=== PATIENT | female | born 1940 | race Caucasian/White ===

== ENCOUNTER → 2019-12-10 09:17 | Outpatient (CLI) | payer MEDICARE, OTHER, SELFPAY ==
[2019-12-10 10:04] LABS: BUN Creatinine Ratio 23.5 (6-22); Blood Urea Nitrogen 16 mg/dL (7-17); Estimated Glomerular Filt Rate > 60.0 mL/min (>60)
--- NOTE | 2019-12-10 10:15 | DI.CT.S_ITS ---
PROCEDURE: CT SOFT TISSUE NECK W CON INDICATIONS: Malignant neoplasm of thyroid gland TECHNIQUE: After the administration of intravenous contrast, 3.0 mm axial sections acquired from the sella to the aortic arch. Additional oblique axial 3.0 mm sections acquired through the pharynx. 3 mm thick coronal and sagittal reformats were generated. For radiation dose reduction, the following was used: automated exposure control. COMPARISON: None. FINDINGS: Image quality: Excellent. Lymph nodes: No enlarged lymph nodes seen throughout the neck. Vessels: Visualized vasculature appears patent. Neck spaces: The oropharynx, nasopharynx, and pharynx demonstrate no mucosal lesions. The vocal cords, false vocal cords, pyriform sinuses, epiglottis, vallecula, and tongue base all appear normal. Extramucosal spaces appear unremarkable. Glands: The parotid and submandibular glands appear normal. Thyroid gland appears normal on the right but there is a large mass lesion replacing much of the left thyroid lobe which is mildly heterogeneous, measures up to 2.8 cm AP, 2.6 cm transverse and has a craniocaudad length of up to 4.1 cm. . Miscellaneous: Visualized brain and orbits appear normal. Lung apices appear clear. Superficial soft tissues appear normal. Note is made of a left-sided cardiac pacemaking device with dual-chamber leads traversing across the midline and inferiorly into the superior vena cava. Bones: No suspicious bony lesions. Visualized sinuses and mastoids appear unremarkable. IMPRESSION: Large left thyroid lobe mass without evidence of direct invasion into adjacent structures or development of adjacent adenopathy. In the small portion of the upper lung parenchyma included on this study no metastatic disease is suspected. Cardiac pacemaking device on the left, dual chamber leads cross the midline and enter the superior vena cava normally. Dictated by: Luis George M.D. on 12/10/2019 at 12:37 Approved by: Luis George M.D. on 12/10/2019 at 12:41
== END ==
PROVIDERS: PCP Family Medicine; Referring Provider Internal Medicine Endocrinology, Diabetes & Metabolism; Visit Provider Internal Medicine Endocrinology, Diabetes & Metabolism
DX: C73 Malignant neoplasm of thyroid gland (principal); E04.2 Nontoxic multinodular goiter; Z95.0 Presence of cardiac pacemaker
CPT/HCPCS: 36415; 70491; 82565; 84520; Q9967

== ENCOUNTER → 2022-08-23 11:22 | Outpatient (CLI) | payer MEDICARE, OTHER, SELFPAY ==
--- NOTE | 2022-08-23 | DI.CT.S_ITS ---
PROCEDURE: CT CHEST W CON INDICATIONS: Malignant neoplasm of thyroid gland TECHNIQUE: After the administration of intravenous contrast, 5 mm thick sections acquired from the pulmonary apices to the posterior costophrenic angles. 1 mm axial lung, 5 mm thick coronal and sagittal reformats and 7 mm axial MIP were acquired. For radiation dose reduction, the following was used: automated exposure control, adjustment of mA and/or kV according to patient size. COMPARISON: None. FINDINGS: Image quality: Excellent. Lungs and pleura: Basilar predominant tree-in-bud nodules, with branching centrilobular nodules in the lower lobes. Associated bronchial thickening and bronchiectasis. The largest pulmonary nodules as follows: -1 cm solid nodule, right lower lobe (3/259). -1.1 x 0.7 cm endobronchial nodule, left lower lobe (3/279). Mediastinum: Heart size is enlarged. No pericardial effusion. No mediastinal or hilar adenopathy by size criteria. However, there is a prominent left upper paratracheal node measuring 9 mm short axis (series 2, image 10). Thoracic aorta and central pulmonary arteries are normal in size. Esophagus is normal in caliber. No hiatal hernia. Intravenous leads terminate within the right atrium and right ventricle. Moderate coronary artery calcifications. Bones and chest wall: No suspicious bony lesions. No vertebral body compression fractures. No axillary or supraclavicular adenopathy by size criteria. Thyroid gland is absent . Abdomen: Cholelithiasis. Gallbladder not completely visualized. Fluid attenuating liver cysts. Additional subcentimeter hypoattenuating liver lesions, too small to characterize by CT. IMPRESSION: Prior thyroidectomy. No evidence of local recurrence in the surgical bed. Prominent left upper paratracheal node measuring 9 mm short axis, not technically enlarged by size criteria but not present on the prior exam. Guadalupe disease not excluded. Extensive lower lobe predominant tree-in-bud nodules and centrilobular nodules, with associated bronchiectasis and bronchial wall thickening. 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 Given the size of nodules and prior history of thyroid cancer, superimposed metastasis not entirely excluded. Consider 3 month follow-up to establish stability of nodules. Dictated by: Barrington Pham M.D. on 08/23/2022 at 12:04 Approved by: Barrington Pham M.D. on 08/23/2022 at 12:13
--- NOTE | 2022-08-23 | DI.CT.S_ITS ---
PROCEDURE: CT SOFT TISSUE NECK W CON INDICATIONS: Malignant neoplasm of thyroid gland TECHNIQUE: After the administration of intravenous contrast, 3.0 mm axial sections acquired from the sella to the aortic arch. Additional oblique axial 3.0 mm sections acquired through the pharynx. 3 mm thick coronal and sagittal reformats were generated. For radiation dose reduction, the following was used: automated exposure control. COMPARISON: [facility], CT, CT SOFT TISSUE NECK W CON, 12/10/2019, 10:03. [facility], CT, CT CHEST W CON, 08/23/2022, 11:29. [facility], US, US FINE NEEDLE ASPIRATION THYROID, 11/18/2019, 13:26. FINDINGS: Image quality: Excellent. Lymph nodes: No enlarged lymph nodes seen throughout the neck. Vessels: Visualized vasculature appears patent. Incidental note is made of a common origin of the right brachiocephalic artery and the left common carotid artery (bovine type arch). This is considered to be a developmental variant of no clinical consequence. Atherosclerotic calcification is noted. Neck spaces: The oropharynx, nasopharynx, and pharynx demonstrate no mucosal lesions. The vocal cords, false vocal cords, pyriform sinuses, epiglottis, vallecula, and tongue base all appear normal. Extramucosal spaces appear unremarkable. Glands: The parotid and submandibular glands appear normal. Thyroid gland has been removed. Several nodules of enhancing material can be seen within the left thyroid bed, as on series 2, image 9, measuring 10 x 9 mm in greatest axial dimension, with a craniocaudal extent of 2.4 cm. Miscellaneous: Visualized brain and orbits appear normal. Lung apices appear clear. Superficial soft tissues appear normal. A left-sided pacer device is seen. Bones: No suspicious bony lesions. Visualized sinuses and mastoids appear unremarkable. Moderate cervical spine degenerative changes can be seen. IMPRESSION: There is enhancing material seen within the left thyroid bed, which represents recurrent/residual thyroid tissue until proven otherwise. No suspicious lymph nodes are seen. Additional findings: Moderate cervical spine degenerative change Pacer device Bovine type aortic branching pattern. Dictated by: Leno Wallace M.D. on 08/23/2022 at 12:23 Approved by: Leno Wallace M.D. on 08/23/2022 at 12:27
== END ==
PROVIDERS: PCP Internal Medicine; Referring Provider Internal Medicine; Visit Provider Internal Medicine
DX: C73 Malignant neoplasm of thyroid gland (principal); R91.8 Other nonspecific abnormal finding of lung field; J44.9 Chronic obstructive pulmonary disease, unspecified; I27.20 Pulmonary hypertension, unspecified; I51.7 Cardiomegaly; K80.20 Calculus of gallbladder without cholecystitis without obstruction; E89.0 Postprocedural hypothyroidism; Z86.79 Personal history of other diseases of the circulatory system
CPT/HCPCS: 70491; 71260; Q9967

== ENCOUNTER → 2022-08-26 13:35 | Outpatient (CLI) | payer MEDICARE, OTHER, SELFPAY ==
--- NOTE | 2022-08-26 | DI.ECHO.S_ITS ---
[facility]---------+ [facility] +---------+ : : [address] [place] : : : : [id number] : : : : Phone: [phone] Echocardiogram Report + + :Name: MARGARITA GHOSH Study Date: 08/26/2022 Height: 67 in : :[facility] ReadingLocation: Weight: 158 lb : : Gender: Female BSA: 1.8 m2 : :: 1940 Age: 82 yrs BP: 138/80 mmHg: :Reason For Study: HYPERTENSION HR: 75 : :Ordering Physician: CALIXTO, : :ALBAN Boogie Performed By: GIRMA MORENO : :Referring: ALBAN DE LUNA : + + Interpretation Summary Normal left ventricle size with ejection fraction 60-65%. There is a pacemaker lead in the right ventricle. Mild aortic valve sclerosis. Moderate aortic regurgitation. Mild mitral annular calcification. Mild mitral regurgitation. Procedure: A two-dimensional transthoracic echocardiogram with color flow and Doppler was performed. The study quality was technically adequate. There is no prior echocardiogram noted for this patient. The patient was in normal sinus rhythm during the exam. Left Ventricle: The left ventricle is normal in size. There is normal left ventricular wall thickness. The ejection fraction is estimated to be 60-65%. There are no focal wall motion abnormalities. Right Ventricle: The right ventricle is normal in size and function. There is a pacemaker lead in the right ventricle. Atria: The left atrial size is normal. The right atrium is mild to moderately dilated. There is no Doppler evidence for an interatrial shunt. Mitral Valve: There is mild mitral annular calcification. The mitral valve leaflets appear mildly thickened, but open well. There is mild mitral regurgitation. Aortic Valve: The aortic valve is trileaflet. The aortic valve opens well. There is mild aortic valve sclerosis. There is no aortic valve stenosis. There is moderate aortic regurgitation. Tricuspid Valve: The tricuspid valve is normal in structure and function. There is mild tricuspid regurgitation. The right ventricular systolic pressure is estimated to be at least 35 mmHg based on an estimated right atrial pressure of 3 mm Hg. Pulmonic Valve: The pulmonic valve is normal in structure and function. There is no pulmonic valvular regurgitation. Great Vessels: The aortic root is normal size. The ascending aorta could not be visualized. The IVC is of normal diameter and collapses greater than 50% with a sniff. This suggests a low right atrial pressure of 3 mm Hg. Pericardium/ Pleura There is no pericardial effusion. There is no pleural effusion. MMode/2D Measurements & Calculations LVIDd: 4.5 cm LVOT diam: 1.9 cm LVIDs: 3.0 cm FS: 33.5 % IVSd: 0.74 cm LVPWd: 0.85 cm LV cardoso. diameter/BSA (cm/m^2): 2.5 LV sys. diameter/BSA (cm/m^2): 1.6 LA A2 area: 24.1 cm2 RA long axis: 4.6 cm LA A4 area: 11.7 cm2 RA area: 18.9 cm2 LA length (vol): 4.6 cm RA vol: 66.7 ml LA vol: 52.0 ml RA : 36.5 ml/m2 LA vol index: 28.4 ml/m2 IVC diam: 1.4 cm TAPSE: 2.4 cm Doppler Measurements & Calculations Ao V2 max: 148.0 cm/sec LVOT Max Ted: 109.7 cm/sec Ao V2 mean: 110.6 cm/sec LV V1 max P.8 mmHg Ao max P.8 mmHg LV V1 VTI: 23.5 cm Ao mean P.4 mmHg MATTHEW(I,D): 2.0 cm2 Ao V2 VTI: 31.6 cm MATTHEW(V,D): 2.0 cm2 sev ratio: 0.74 MATTHEW indexed to BSA (cm^2/m^2): 1.1 AI P1/2t: 369.7 msec AI dec slope: 395.9 cm/sec2 MV E max ted: 52.2 cm/sec TR max ted: 282.9 cm/sec MV A max ted: 59.0 cm/sec TR max P.0 mmHg MV E/A: 0.89 PA V2 max: 94.3 cm/sec Med Peak E' Ted: 5.8 cm/sec PA V2 mean: 77.0 cm/sec E/E' med: 9.0 PA mean P.4 mmHg Lat Peak E' Ted: 8.1 cm/sec PA pr(Accel): 46.5 mmHg E/E' lat: 6.5 E/e' average: 7.7 MV dec time: 0.26 sec SV(OT): 63.2 ml Electronically signed by: Milagro Rene on Reading Physician:08/26/2022 03:04 PM
== END ==
PROVIDERS: PCP Internal Medicine; Referring Provider Family Medicine; Visit Provider Family Medicine
DX: I08.3 Combined rheumatic disorders of mitral, aortic and tricuspid valves (principal); I27.20 Pulmonary hypertension, unspecified; I10 Essential (primary) hypertension; Z86.79 Personal history of other diseases of the circulatory system
CPT/HCPCS: 93306

== ENCOUNTER 2024-07-13 13:28 | Inpatient (IN) | payer MEDICARE, OTHER, SELFPAY ==
[2024-07-13] VITALS (23 sets, daily range): BP systolic 136–202; BP diastolic 76–96; PULSE 77–97; RESP 16–39; TEMP 36.4–36.8; O2SAT 81–96; BMI 23.5
--- NOTE | 2024-07-13 13:41 | EKG_ITS ---
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
--- NOTE | 2024-07-13 13:41 | DI.RAD.S_ITS ---
PROCEDURE: XR CHEST 1V INDICATIONS: Shortness of breath TECHNIQUE: One view of the chest was acquired. COMPARISON: None. FINDINGS AND IMPRESSION: On this single view study, no dense airspace disease or pleural effusion. Heart size is at the upper limit of normal. Left chest wall pulse generator with dual-chamber electrode leads in place. Degenerative osseous changes. Dictated by: Cosme Bobo M.D. on 07/13/2024 at 14:16 Approved by: Cosme Bobo M.D. on 07/13/2024 at 14:16
--- NOTE | 2024-07-13 13:47 | PC.NURSE ---
RT called during triage. LS have bilateral rhonchi throughout all bonner posteriorly.
[2024-07-13] MEDS: ALBUTEROL/IPRATROPIUM 3 ML AMPUL INH (14:20)
[2024-07-13 14:32] LABS: Add Manual Diff / Slide Review NO; Basophils Absolute Auto 100 /uL (0-100); Basophils Percent Auto 0.9 % (0-2); Eosinophils Absolute Auto 100 /uL (0-450); Eosinophils Percent Auto 0.9 % (2-4); Hematocrit 40.9 % (36-46); Hemoglobin 13.7 g/dL (12.0-16.0); Lymphocytes Absolute Auto 300 /uL (1100-4500); Lymphocytes Percent Auto 4.1 % (25-40); Mean Corpuscular HGB Conc 33.5 % (30-36); Mean Corpuscular Volume 92.6 fL (80-100); Monocytes Absolute Auto 800 /uL (0-900); Monocytes Percent Auto 12.6 % (3-14); Neutrophils Absolute Auto 5100 /uL (1500-7000); Neutrophils Percent Auto 81.5 % (50-75); Platelet Count 254 X10^3/uL (150-400); Red Blood Cell Count 4.42 X10^6/uL (4.0-5.2); Red Cell Distribution Width 13.9 % (11.6-14.8); White Blood Cell Count 6.3 X10^3/uL (4.5-11.0)
[2024-07-13 14:39] LABS: Alanine Aminotransferase 19 IU/L (<35); Albumin 4.2 g/dL (3.5-5.0); Albumin Globulin Ratio 1.5 (1.0-2.8); Alkaline Phosphatase 75 U/L (38-126); Aspartate Aminotransferase 30 IU/L (14-36); BUN Creatinine Ratio 23.2 (6-22); Bilirubin Total 0.6 mg/dL (0.2-1.3); Blood Urea Nitrogen 13 mg/dL (7-17); Calcium 8.7 mg/dL (8.4-10.2); Carbon Dioxide 29 mmol/L (22-32); Chloride 96 mmol/L (98-107); Estimated Glomerular Filt Rate > 60 mL/min (>60); Globulin 2.8 g/dL (1.7-4.1); Glucose 111 mg/dL (80-110); HEMOLYSIS < 15 (0-50); Potassium 3.2 mmol/L (3.4-5.1); Sodium 133 mmol/L (137-145)
[2024-07-13 14:44] LABS: INR 1.1 (0.9-1.3); Prothrombin Time 12.8 SECONDS (9.4-12.5)
[2024-07-13 14:51] LABS: NT-proBNP (BNP-Adult 18+) 1810 pg/mL (<450); Troponin I < 0.012 ng/mL (0.01-0.034)
[2024-07-13] MEDS: methylPREDNISolone 125 MG/2 ML VIAL IV (17:46)
--- NOTE | 2024-07-13 17:52 | PC.NURSE ---
Pt ambulated to bathroom off oxygen. O2 at this time was 92%. Upon exiting bathroom pt was 85% walking back to room (approx 20-30 feet). Pt then was very SOB and oxygen read 76%. Pt placed on 4L and recovered to 95%. Pt then titrated to 2L and is resting comfortably.
--- NOTE | 2024-07-13 18:45 | ED_ITS ---
HPI - SOB/Dyspnea General Chief Complaint: Shortness of Breath/Dyspnea Stated Complaint: Having a hard time breathing Time Seen by Provider: 07/13/24 17:31 Source: patient Mode of arrival: Wheelchair History of Present Illness HPI Narrative: 84-year-old female past medical history of COPD not requiring supplemental oxygen, hypertension, hypothyroidism at baseline who presents via EMS from home for evaluation of shortness of breath, states that she has been having dyspnea with exertion productive cough and chest tightness since yesterday states this happened after pain to her sanded the [place] down. According to medics when she was initially evaluated her pulse ox was 91% on room air eventually dropped down to 88% and was placed on 2 L nasal cannula improved to 93. Patient was given Solu-Medrol DuoNeb immediately upon arrival with improvement in symptoms, at time of evaluation patient is still with dyspneic with conversation but slightly improved symptoms of shortness of breath, she denies any other symptoms such as headache chest pain fever chills nausea vomiting abdominal pain or any other GI/ symptoms. Related Data Allergies Allergy/AdvReac Type Severity Reaction Status Date / Time No Known Drug Allergies Allergy Verified 07/13/24 14:23 Review of Systems Review of Systems Narrative: General: Denies fever, chills, weight loss HEENT: Denies headache, eye drainage, eye irritation, head trauma, sore throat, voice change Cardiovascular: Denies any chest pain, palpitations, shortness of breath, tachycardia Respiratory: Positive shortness of breath, cough, wheeze GI/: Denies any abdominal pain, nausea, vomiting, diarrhea, bright red blood per rectum, melanotic stools, urinary frequency, urinary retention, dysuria, hematuria MSK: Denies any joint pain, muscle pains, swelling Skin: Denies any rashes, lesions, discoloration Neuro: Denies any headache, lightheadedness, dizziness, fainting, weakness Psych: Denies SI/HI Patient History Social History Smoking Status: Never smoker Smoking Status: Never smoker Alcohol type: wine Exam Narrative Exam Narrative: General: Cooperative, comfortable, well-developed, not in acute distress HEENT: Normocephalic, atraumatic, PERRLA, normal sclera, eyelids normal, Neck: Active full range of motion, atraumatic Chest: Normal to inspection, negative crepitus, no overlying erythema ecchymosis Respiratory: Patient with moderate dyspnea with conversation, requiring 2 L nasal cannula, patient with wheezes in bilateral anterior and posterior lung bonner but protecting airway tolerating secretions Cardiology: Regular rate rhythm negative gallop, murmur, rubs GI/: Normal to inspection, soft, nonrigid, no tenderness to palpation, exam deferred MSK: Full range of active range of motion of all 4 extremities, atraumatic Skin: No rashes lesions noted Neuro: Alert awake oriented x3, moves all 4 extremities spontaneously, cranial nerves intact, able to answer all questions appropriately follows commands appropriately Psych: Cooperative, negative suicidal or homicidal ideations Initial Vital Signs Initial Vital Signs: Vital Signs Temperature 98.2 F 07/13/24 13:31 Pulse Rate 82 07/13/24 13:31 Respiratory Rate 22 07/13/24 13:31 Blood Pressure 139/77 07/13/24 13:31 Pulse Oximetry 88 L 07/13/24 13:31 Oxygen Delivery Method Room Air 07/13/24 13:31 Course Orders Ordered: ED Orders 07/13/24 13:41 XR chest 1V Stat EKG-12 Lead Stat Measure peak expiratory flow ONCE RT Consult Eval and Treat NOW 07/13/24 14:19 Complete Blood Count AUTO DIFF Stat Comprehensive Metabolic Panel Stat Lactate (Lactic Acid) Stat NT-proBNP (BNP-Adult 18+) Stat Prothrombin Time INR Stat Troponin I Stat 07/13/24 19:05 Covid-19 + FLU A/B + RSV - PCR Stat Discontinued Medications Albuterol (Albuterol 2.5 Mg/3 Ml Neb (Adult)) 2.5 mg INH NOW ONE Stop: 07/13/24 18:59 Last Admin: 07/13/24 19:33 Dose: 2.5 mg Documented By: BETHANIE Albuterol/Ipratropium (Albuterol/Ipratropium 3 Ml Ampul) 3 ml INH NOW ONE Stop: 07/13/24 14:17 Last Admin: 07/13/24 14:20 Dose: 3 ml Documented By: KELSIE Magnesium Sulfate (Magnesium Sulfate) 2 gm in 50 mls @ 150 mls/hr IV NOW ONE Stop: 07/13/24 19:08 Last Infusion: 07/13/24 19:32 Dose: Infused Documented By: BETHANIE Co-signed By: AMELIA Admin: 07/13/24 19:08 Dose: 150 mls/hr Documented By: AMELIA(2) Co-signed By: AB Methylprednisolone (Methylprednisolone 125 Mg/2 Ml Vial) 125 mg IV NOW ONE Stop: 07/13/24 17:32 Last Admin: 07/13/24 17:46 Dose: 125 mg Documented By: AMELIA(2) Potassium Chloride (Potassium Chloride 20 Meq/15 Ml Udc) 40 meq PO NOW ONE Stop: 07/13/24 18:50 Last Admin: 07/13/24 19:07 Dose: 40 meq Documented By: AMELIA(2) Vital Signs Vital signs: Vital Signs - 8 hr 07/13/24 13:31 07/13/24 13:53 07/13/24 14:00 Temperature 98.2 F Pulse Rate 82 78 83 Respiratory Rate 22 Blood Pressure 139/77 Pulse Oximetry 88 L 93 96 Oxygen Delivery Method Room Air Oxygen Flow Rate 2 2 07/13/24 14:20 07/13/24 14:20 07/13/24 14:22 Temperature Pulse Rate 81 Respiratory Rate Blood Pressure 136/85 Pulse Oximetry 96 94 Oxygen Delivery Method Nasal Cannula Oxygen Flow Rate 2 2 07/13/24 14:30 07/13/24 14:30 07/13/24 15:00 Temperature Pulse Rate 83 84 Respiratory Rate 37 H 31 H Blood Pressure 191/96 H Pulse Oximetry 94 92 Oxygen Delivery Method Oxygen Flow Rate 0 0 07/13/24 15:00 07/13/24 15:30 07/13/24 15:30 Temperature Pulse Rate 81 Respiratory Rate 25 H Blood Pressure 187/92 H 202/90 H Pulse Oximetry 93 Oxygen Delivery Method Oxygen Flow Rate 0 07/13/24 16:00 07/13/24 16:00 07/13/24 16:07 Temperature Pulse Rate 81 82 Respiratory Rate 33 H 39 H Blood Pressure 188/91 H Pulse Oximetry 95 94 Oxygen Delivery Method Oxygen Flow Rate 0 0 07/13/24 16:07 07/13/24 16:30 07/13/24 16:30 Temperature Pulse Rate 81 Respiratory Rate 27 H Blood Pressure 169/83 H 172/82 H Pulse Oximetry 95 Oxygen Delivery Method Oxygen Flow Rate 1 07/13/24 17:00 07/13/24 17:00 07/13/24 17:34 Temperature Pulse Rate 80 97 H Respiratory Rate 32 H Blood Pressure 174/81 H Pulse Oximetry 94 81 L Oxygen Delivery Method Oxygen Flow Rate 0 0 07/13/24 17:37 07/13/24 17:37 07/13/24 18:00 Temperature Pulse Rate 85 80 Respiratory Rate 31 H Blood Pressure 175/90 H Pulse Oximetry 94 94 95 Oxygen Delivery Method Oxygen Flow Rate 4 2 07/13/24 18:30 07/13/24 18:30 07/13/24 19:00 Temperature Pulse Rate 80 84 Respiratory Rate 33 H Blood Pressure 177/84 H Pulse Oximetry 93 94 Oxygen Delivery Method Oxygen Flow Rate MDM - SOB/Dyspnea Differential Diagnosis Differential diagnosis: Likely acute exacerbation of chronic obstructive airways disease, congestive heart failure, community acquired pneumonia, asthma with exacerbation and other (ACS, electrolyte abnormality, COVID, flu, RSV) Lab Data 07/13/24 14:19 07/13/24 14:19 Labs: Lab Results 07/13/24 07/13/24 Range/Units 14:19 19:05 WBC 6.3 (4.5-11.0) X10^3/uL RBC 4.42 (4.0-5.2) X10^6/uL Hgb 13.7 (12.0-16.0) g/dL Hct 40.9 (36-46) % MCV 92.6 (80-100) fL MCH 31.0 (26-34) PG MCHC 33.5 (30-36) % RDW 13.9 (11.6-14.8) % Plt Count 254 (150-400) X10^3/uL Neut % (Auto) 81.5 H (50-75) % Lymph % (Auto) 4.1 L (25-40) % [place] % (Auto) 12.6 (3-14) % Eos % (Auto) 0.9 L (2-4) % Baso % (Auto) 0.9 (0-2) % Neut # (Auto) 5100 (3683-5353) /uL Lymph # (Auto) 300 L (4560-8699) /uL [place] # (Auto) 800 (0-900) /uL Eos # (Auto) 100 (0-450) /uL Baso # (Auto) 100 (0-100) /uL PT 12.8 H (9.4-12.5) SECONDS INR 1.1 (0.9-1.3) Sodium 133 L (137-145) mmol/L Potassium 3.2 L (3.4-5.1) mmol/L Chloride 96 L (98-107) mmol/L Carbon Dioxide 29 (22-32) mmol/L BUN 13 (7-17) mg/dL Creatinine 0.56 (0.52-1.04) mg/dL Estimated GFR > 60 (>60) mL/min BUN/Creatinine Ratio 23.2 H (6-22) Glucose 111 H (80-110) mg/dL Lactate 1.0 (0.7-2.1) mmol/L Calcium 8.7 (8.4-10.2) mg/dL Total Bilirubin 0.6 (0.2-1.3) mg/dL AST 30 (14-36) IU/L ALT 19 (<35) IU/L Alkaline Phosphatase 75 (38-126) U/L Troponin I < 0.012 (0.01-0.034) ng/mL NT-Pro-B Natriuret Pep 1810 H (<450) pg/mL Total Protein 7.0 (6.3-8.2) g/dL Albumin 4.2 (3.5-5.0) g/dL Globulin 2.8 (1.7-4.1) g/dL Albumin/Globulin Ratio 1.5 (1.0-2.8) SARS-CoV-2 (PCR) Negative (Negative) Influenza A (RT-PCR) Flu a negative (NEGATIVE) Influenza B (RT-PCR) Flu b negative (NEGATIVE) RSV (PCR) Negative (Negative) Imaging Data Chest x-ray: Radiologist's Impression: [address] [address] XRay Report Signed Patient: Henna Darden MR#: [id number] : 1940 Acct:[id number] Age/Sex: 84 / F Date of Service: 07/13/24 Loc: ED Accession Number: [id number] Procedure: XR chest 1V Ordering Provider: Yomaira Blevins D.O. PROCEDURE: XR CHEST 1V INDICATIONS: Shortness of breath TECHNIQUE: One view of the chest was acquired. COMPARISON: None. FINDINGS AND IMPRESSION: On this single view study, no dense airspace disease or pleural effusion. Heart size is at the upper limit of normal. Left chest wall pulse generator with dual-chamber electrode leads in place. Degenerative osseous changes. ECG Data Interpretation: EKG interpreted ED physician sinus 89 beats per minute QTC 452, normal axis nonspecific ST changes no STEMI MDM Narrative Medical decision making narrative: 84-year-old female with a history of COPD not on supplemental oxygen at baseline presents for cough shortness of breath wheezing started yesterday after being exposed to dust particles after pain to stand it. Medics arrived patient pulse ox 88% was placed on 2 L nasal cannula. Patient not requiring supplemental oxygen, patient upon arrival did receive Solu-Medrol albuterol DuoNeb with improvement of symptoms however still requiring supplemental oxygen. Lab work without any leukocytosis potassium 3.2 did replete here, troponin negative EKG nonischemic in nature. Symptoms more likely COPD exacerbation however given persistent need for supplemental oxygen require admission to the hospital. The patient's management plan was discussed Dr. Esposito, who agrees to admit the patient to their service and assumes care of this patient at this time. Full admission orders will be placed by the primary team. Discharge Plan Departure Patient Disposition: Home Clinical Impression: Acute hypoxemic respiratory failure, COPD exacerbation
[2024-07-13] MEDS: POTASSIUM CHLORIDE 20 MEQ/15 ML UDC 40 MEQ PO (19:07)
[2024-07-13] MEDS: MAGNESIUM SULFATE 2 GM/50 ML PIGGYBACK IV (19:08)
[2024-07-13] MEDS: ALBUTEROL 2.5 MG/3 ML NEB (ADULT) INH (19:33)
[2024-07-13 19:58] LABS: Influenza A - CEPHEID Flu A NEGATIVE (NEGATIVE); Influenza B - CEPHEID Flu B NEGATIVE (NEGATIVE); Respiratory Syncytial Virus Negative (Negative)
[2024-07-13 20:02] LABS: COVID-19 CEPHEID 4-PLEX PCR Negative (Negative)
--- NOTE | 2024-07-13 21:54 | PM.HP.1 ---
History of Present Illness History of Present Illness Chief complaint: Having a hard time breathing Narrative: opened encounter in error [facility] Medical History (Updated 07/14/24 @ 05:43 by Mitzi Espoisto MD) HTN (hypertension) Hypothyroidism Chronic interstitial lung disease Social History household members: spouse Smoking Status: Never smoker alcohol intake: current Meds Home Medications and Allergies Home Medications Medication Instructions Recorded Confirmed Type albuterol sulfate 90 mcg/actuation 2 puff inhalation 4XD PRN wheezing 07/13/24 07/13/24 History aerosol inhaler irbesartan 300 1 tab PO DAILY 07/13/24 07/13/24 History mg-hydrochlorothiazide 12.5 mg tablet levothyroxine 175 mcg tablet 175 mcg PO DAILY 07/13/24 07/13/24 History metoprolol succinate 100 mg 150 mg PO DAILY 07/13/24 07/13/24 History tablet,extended release 24 hr tiotropium 2.5 mcg-olodaterol 2.5 2 puff inhalation DAILY 07/13/24 07/13/24 History mcg/actuation mist for inhalation (Stiolto Respimat) Allergies Allergy/AdvReac Type Severity Reaction Status Date / Time No Known Drug Allergies Allergy Verified 07/13/24 14:23 Review of Systems Review of Systems ROS: Yes All systems reviewed with the patient and are negative except as otherwise documented Exam Vital Signs (past 8 hours): - 07/13/24 14:00 07/13/24 14:20 07/13/24 14:20 Pulse Rate 83 81 Respiratory Rate Blood Pressure 136/85 Pulse Oximetry 96 96 Oxygen Delivery Method Oxygen Flow Rate 2 2 07/13/24 14:22 07/13/24 14:30 07/13/24 14:30 Pulse Rate 83 Respiratory Rate 37 H Blood Pressure 191/96 H Pulse Oximetry 94 94 Oxygen Delivery Method Nasal Cannula Oxygen Flow Rate 2 0 07/13/24 15:00 07/13/24 15:00 07/13/24 15:30 Pulse Rate 84 Respiratory Rate 31 H Blood Pressure 187/92 H 202/90 H Pulse Oximetry 92 Oxygen Delivery Method Oxygen Flow Rate 0 07/13/24 15:30 07/13/24 16:00 07/13/24 16:00 Pulse Rate 81 81 Respiratory Rate 25 H 33 H Blood Pressure 188/91 H Pulse Oximetry 93 95 Oxygen Delivery Method Oxygen Flow Rate 0 0 07/13/24 16:07 07/13/24 16:07 07/13/24 16:30 Pulse Rate 82 81 Respiratory Rate 39 H 27 H Blood Pressure 169/83 H Pulse Oximetry 94 95 Oxygen Delivery Method Oxygen Flow Rate 0 1 07/13/24 16:30 07/13/24 17:00 07/13/24 17:00 Pulse Rate 80 Respiratory Rate 32 H Blood Pressure 172/82 H 174/81 H Pulse Oximetry 94 Oxygen Delivery Method Oxygen Flow Rate 0 07/13/24 17:34 07/13/24 17:37 07/13/24 17:37 Pulse Rate 97 H 85 Respiratory Rate 31 H Blood Pressure 175/90 H Pulse Oximetry 81 L 94 94 Oxygen Delivery Method Oxygen Flow Rate 0 4 2 07/13/24 18:00 07/13/24 18:30 07/13/24 18:30 Pulse Rate 80 80 Respiratory Rate 33 H Blood Pressure 177/84 H Pulse Oximetry 95 93 Oxygen Delivery Method Oxygen Flow Rate 07/13/24 19:00 07/13/24 19:30 07/13/24 19:30 Pulse Rate 84 79 Respiratory Rate 23 Blood Pressure 163/87 H Pulse Oximetry 94 92 Oxygen Delivery Method Nasal Cannula Oxygen Flow Rate 2 07/13/24 20:00 07/13/24 20:00 07/13/24 20:30 Pulse Rate 84 Respiratory Rate 24 Blood Pressure 153/84 H 149/76 H Pulse Oximetry 92 Oxygen Delivery Method Nasal Cannula Oxygen Flow Rate 2.5 07/13/24 20:30 Pulse Rate 81 Respiratory Rate 25 H Blood Pressure Pulse Oximetry 92 Oxygen Delivery Method Nasal Cannula Oxygen Flow Rate 2.5 Oxygen Delivery Method Nasal Cannula Oxygen Flow Rate 2.5 Objective Labs 07/13/24 14:19 07/13/24 14:19 Labs: Laboratory Results - last 24 hr 07/13/24 07/13/24 14:19 19:05 WBC 6.3 RBC 4.42 Hgb 13.7 Hct 40.9 MCV 92.6 MCH 31.0 MCHC 33.5 RDW 13.9 Plt Count 254 Neut % (Auto) 81.5 H Lymph % (Auto) 4.1 L [place] % (Auto) 12.6 Eos % (Auto) 0.9 L Baso % (Auto) 0.9 Neut # (Auto) 5100 Lymph # (Auto) 300 L [place] # (Auto) 800 Eos # (Auto) 100 Baso # (Auto) 100 PT 12.8 H INR 1.1 Sodium 133 L Potassium 3.2 L Chloride 96 L Carbon Dioxide 29 BUN 13 Creatinine 0.56 Estimated GFR > 60 BUN/Creatinine Ratio 23.2 H Glucose 111 H Lactate 1.0 Calcium 8.7 Total Bilirubin 0.6 AST 30 ALT 19 Alkaline Phosphatase 75 Troponin I < 0.012 NT-Pro-B Natriuret Pep 1810 H Total Protein 7.0 Albumin 4.2 Globulin 2.8 Albumin/Globulin Ratio 1.5 SARS-CoV-2 (PCR) Negative Influenza A (RT-PCR) Flu a negative Influenza B (RT-PCR) Flu b negative RSV (PCR) Negative Assessment & Plan Time-Based Coding :: [TOTAL MINUTES] spent with patient and on the chart (including review of chart, obtaining history, exam, reviewing outside data, placing orders, documenting exam and treatment plan, and counseling patient) on [DATE].
[2024-07-14] VITALS (11 sets, daily range): BP systolic 107–150; BP diastolic 59–92; PULSE 72–96; RESP 16–20; TEMP 36.1–36.9; O2SAT 93–98
[2024-07-14 01:05] LABS: Allen Test for ABG Passed? Positive; Base Excess ABG 5.9 mmol/L (-2-3); Blood Gas Collection Site Right Radial; Delivery System Cannula; HCO3 ABG 32 mmol/L (23-27); Oxygen Saturation ABG 97 % (95-100); PCO2 ABG 48.5 mmHg (35-45); PO2 ABG 91 mmHg (80-100); TCO2 ABG 31 mmol/L (23-27); pH ABG 7.42 (7.35-7.45)
--- NOTE | 2024-07-14 04:41 | P.HP_ITS ---
History of Present Illness History of Present Illness Date Patient Seen: 07/14/24 Chief complaint: Having a hard time breathing Narrative: Henna Darden is an 84 y/o F, with h/o HTN, on HCTZ, Metoprolol and ARB, s'/p Pacemaker for bradycardia, Hypothyroidism, on Levothyroxine 175 mcg daily, Thyroid Cancer s/p Thyroidectomy, and Chronic ? 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 These details are per patient, I an unable to locate these encounters/ pulm clinic visits. 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 Sghe denies h/o KS, CHF, PE, DVT, Stroke, is a life long non smoke Pt came to ED sec to worsening Shortness of breath, beyond her baseline and wheezing , and these symptoms started 4 days ago, as the [place] in her home were getting sanded andc she had dust exposure. She has noted cough productive of white sputum, no hemoptysis.Denies light headedness or Syncope. Pt denies f/c, CP, Abd Pain, N/V, severe headaches, any sick contact or recent travel. [employer] she was wheezing , and unable to even move a few steps without getting short of breath, and noting chest tightness, with coughing bouts, so she called EMS. EMS noted pt had an O2 sat of 88% on RA, was put on 2 L nc and O2 sats improved to 93%. Her eval in ED: O2 sats 93 % on 2 L , was tachypneic, afebrile, and wheezing EKG : Sinus Rhythm , HR 89, No acute ST- T wave changes noted CXR : no acute changes, no pleural effusion , consolidation or changes of fluid overload Labs Remarkable for K 3.2, Na 133, Cl 96 No Leukocytosis, Troponin < 0.012 Pro BNP up at 1810, though pt not appearing clinically fluid overloaded Given Duoneb Inh treatments , and Solumedrol 125 mg IV Was put on 4 L O2 nc to maintain O2 sats of 94% Pt was given KCL, and referred to Hospitalist team for further care/ observation . [facility] Medical History (Updated 07/14/24 @ 05:43 by Mitzi Esposito MD) HTN (hypertension) Hypothyroidism Chronic interstitial lung disease Social History household members: spouse Smoking Status: Never smoker alcohol intake: current Meds Home Medications and Allergies Home Medications Medication Instructions Recorded Confirmed Type albuterol sulfate 90 mcg/actuation 2 puff inhalation 4XD PRN wheezing 07/13/24 07/13/24 History aerosol inhaler irbesartan 300 1 tab PO DAILY 07/13/24 07/13/24 History mg-hydrochlorothiazide 12.5 mg tablet levothyroxine 175 mcg tablet 175 mcg PO DAILY 07/13/24 07/13/24 History metoprolol succinate 100 mg 150 mg PO DAILY 07/13/24 07/13/24 History tablet,extended release 24 hr tiotropium 2.5 mcg-olodaterol 2.5 2 puff inhalation DAILY 07/13/24 07/13/24 History mcg/actuation mist for inhalation (Stiolto Respimat) Allergies Allergy/AdvReac Type Severity Reaction Status Date / Time No Known Drug Allergies Allergy Verified 07/13/24 14:23 Review of Systems Review of Systems ROS: Yes All systems reviewed with the patient and are negative except as otherwise documented Exam Vital Signs (past 8 hours): - 07/13/24 20:50 07/13/24 21:15 07/13/24 21:44 Temperature 97.5 F L Pulse Rate 82 77 Respiratory Rate 18 20 Blood Pressure 163/83 H Pulse Oximetry 93 94 Oxygen Delivery Method Nasal Cannula Nasal Cannula Oxygen Flow Rate 4 Fraction of Inspired Oxygen 36 07/13/24 23:58 07/14/24 00:35 07/14/24 01:00 Temperature Pulse Rate 79 74 Respiratory Rate 16 Blood Pressure 137/80 Pulse Oximetry 96 94 95 Oxygen Delivery Method Nasal Cannula Nasal Cannula Oxygen Flow Rate 4 3.5 Fraction of Inspired Oxygen 07/14/24 04:36 Temperature 97.5 F L Pulse Rate 72 Respiratory Rate 16 Blood Pressure 150/92 H Pulse Oximetry 98 Oxygen Delivery Method Oxygen Flow Rate Fraction of Inspired Oxygen Fraction of Inspired Oxygen 36 SaO2/FiO2 Ratio 261 Oxygen Delivery Method Nasal Cannula Oxygen Flow Rate 3.5 Glucose POC: 111 Narrative Exam Narrative: Pt is sitting in bed, and is able to talk in full sentences, though occasionally takes a break as has been exhausted with her recent [employer] shortness of breath, and MAE and coughing episodes HEENT: AT, NC EOMI, PERRL, No scleral Icterus, Conjunctivae are normal Neck is supple, No TNG, no JVD no Lympadenopathy Chest: Normal Resp effort, Diminished BS At bases, otherwise CTA, no Rhonchi, Crackles or wheezing. Heart: RRR, S1 S2, No M/G/R Abd: soft NT, ND, NO HSM< BS present ands WNL Ext: no edema, no cxalf tenderness bilat. PP 2 + Bilat Symmetric Skin: warm and dry, no Cyanosis, no rash , no bruising Neuro : non focal, able to move all extremities, speech is clear, is interactive. Psyche: Normal affect, cooperative, Judgement and insight are good. Objective Labs 07/13/24 14:19 07/13/24 14:19 Labs: Laboratory Results - last 24 hr 07/13/24 07/13/24 07/14/24 14:19 19:05 00:56 WBC 6.3 RBC 4.42 Hgb 13.7 Hct 40.9 MCV 92.6 MCH 31.0 MCHC 33.5 RDW 13.9 Plt Count 254 Neut % (Auto) 81.5 H Lymph % (Auto) 4.1 L [place] % (Auto) 12.6 Eos % (Auto) 0.9 L Baso % (Auto) 0.9 Neut # (Auto) 5100 Lymph # (Auto) 300 L [place] # (Auto) 800 Eos # (Auto) 100 Baso # (Auto) 100 PT 12.8 H INR 1.1 ABG Sample Site Right radial ABG pH 7.42 ABG pCO2 48.5 H ABG pO2 91 ABG HCO3 32 H ABG Total CO2 31 H ABG O2 Saturation 97 ABG Base Excess 5.9 H Harvinder Test Positive O2 Delivery Device Cannula FiO2 % 36.0 % Sodium 133 L Potassium 3.2 L Chloride 96 L Carbon Dioxide 29 BUN 13 Creatinine 0.56 Estimated GFR > 60 BUN/Creatinine Ratio 23.2 H Glucose 111 H Lactate 1.0 Calcium 8.7 Total Bilirubin 0.6 AST 30 ALT 19 Alkaline Phosphatase 75 Troponin I < 0.012 NT-Pro-B Natriuret Pep 1810 H Total Protein 7.0 Albumin 4.2 Globulin 2.8 Albumin/Globulin Ratio 1.5 SARS-CoV-2 (PCR) Negative Influenza A (RT-PCR) Flu a negative Influenza B (RT-PCR) Flu b negative RSV (PCR) Negative Assessment & Plan Assessment and plan (1) Acute and chronic respiratory failure with hypoxia: Problem details: Pt with ? Chronic Interstitial Lung disease/ post treatment ( pt states 6 mos ago: finished taking 3 medications( does not recall names)for non tuberculous Mycobacterial Lung infection, followed by Pulm specialist, with Chronic progressive MAE, and wheezing, exacerbated with dust exposure at her home , with hypoxia, requiring 4 L supp O2 Recd Solumedrol IV and Inh Treatments Continue Inh Treatments prn Currently not wheezing , shall hold further IV Solumedrol Day team advised to obtain records from Pulm Specialist and may consider contacting them for additional recommendations. If pt not improving consider CT chest to determine underlying Lung Parenchymal Disease. No Influenza, COVID Dalal RSV detected Additionally Elevated Pro BNP, ? Flash Pulm edema , shall order echo . Hold Diuretic as pt does not appear fluid over loaded clinically , rather maybe volume contracted given HCTZ and ARB intake at home No PNA Echo prior 08/26/22 done as has h/o HTN : LVEF 60-65%, Normal LV and RV size No Pulm HTN Status: Acute (2) Hypokalemia due to excessive renal loss of potassium: Problem details: Sec to HCTZ , hold same Status: Acute (3) Hyponatremia: Problem details: likely sec to Diuresis / HCTZ Status: Acute (4) Hypochloremia: Problem details: sec to HCTZ Status: Acute (5) Chronic interstitial lung disease: Status: Acute (6) Hypothyroidism: Problem details: Continue her home dose of Levothyroxine TSH is WNL Status: Acute (7) HTN (hypertension): Problem details: stable , continue Metoprolol per home dose Status: Acute Time-Based Coding :: [TOTAL MINUTES] spent with patient and on the chart (including review of chart, obtaining history, exam, reviewing outside data, placing orders, documenting exam and treatment plan, and counseling patient) on [DATE].
[2024-07-14 06:00] LABS: Add Manual Diff / Slide Review NO; Basophils Absolute Auto 0 /uL (0-100); Basophils Percent Auto 0.4 % (0-2); Eosinophils Absolute Auto 0 /uL (0-450); Hematocrit 39.5 % (36-46); Hemoglobin 13.3 g/dL (12.0-16.0); Lymphocytes Absolute Auto 200 /uL (1100-4500); Lymphocytes Percent Auto 5.8 % (25-40); Mean Corpuscular HGB Conc 33.7 % (30-36); Mean Corpuscular Hemoglobin 31.3 PG (26-34); Mean Corpuscular Volume 92.9 fL (80-100); Monocytes Absolute Auto 100 /uL (0-900); Monocytes Percent Auto 3.3 % (3-14); Neutrophils Absolute Auto 3100 /uL (1500-7000); Neutrophils Percent Auto 90.5 % (50-75); Platelet Count 250 X10^3/uL (150-400); Red Blood Cell Count 4.25 X10^6/uL (4.0-5.2); Red Cell Distribution Width 14.2 % (11.6-14.8); White Blood Cell Count 3.5 X10^3/uL (4.5-11.0)
--- NOTE | 2024-07-14 06:00 | DI.ECHO.S_ITS ---
[facility] : : [address] : : [place] : : [id number] : : Phone: [phone] Echocardiogram Report + + :Name: MARGARITA GHOSH Study Date: 07/14/2024 Height: 67 in : :[facility] ReadingLocation: Weight: 150 lb : : Gender: Female BSA: 1.8 m2 : :: 1940 Age: 84 yrs BP: 150/92 mmHg: :Reason For Study: ELEVATED BNP, SOB : :Ordering Physician: TONIA, : :BUDDY PLASENCIA Performed By: Carol Dee : :Referring: BUDDY RANDALL MD : + + Interpretation Summary Left ventricular ejection fraction is estimated to be .55. Septal motion is consistent with conduction abnormality. There is a catheter/pacemaker lead seen in the right atrium. There is moderate mitral regurgitation. Borderline posterior mitral valve prolapse There is mild aortic regurgitation. The right ventricular systolic pressure is estimated to be at least 27 mmHg based on an estimated right atrial pressure of 3 mm Hg. Procedure: A two-dimensional transthoracic echocardiogram with color flow and Doppler was performed. The study quality was technically adequate. Comparison is made with the echocardiogram of 08/26/2022. The heart rate ranged between 70 bpm during the study. Left Ventricle: The left ventricle is normal in size and wall thickness. Left ventricular ejection fraction is estimated to be .55. Septal motion is consistent with conduction abnormality. Right Ventricle: The right ventricle is normal in size and function. Atria: The left atrium is mildly dilated. Right atrial size is normal. There is a catheter/pacemaker lead seen in the right atrium. There is no Doppler evidence for an interatrial shunt. Mitral Valve: Borderline posterior mitral valve prolapse. There is moderate mitral regurgitation. Aortic Valve: The aortic valve is trileaflet. The aortic valve opens well. There is no aortic valve stenosis. There is mild aortic regurgitation. Tricuspid Valve: The tricuspid valve leaflets are thin and pliable. There is mild tricuspid regurgitation. The right ventricular systolic pressure is estimated to be at least 27 mmHg based on an estimated right atrial pressure of 3 mm Hg. Pulmonic Valve: The pulmonic valve leaflets are thin and pliable; valve motion is normal. There is mild pulmonic regurgitation. Great Vessels: The aortic root is normal size. The ascending aorta is at the upper limits of normal in size. The IVC is of normal diameter and collapses greater than 50% with a sniff. This suggests a low right atrial pressure of 3 mm Hg. Pericardium/ Pleura There is no pericardial effusion. There is no pleural effusion. MMode/2D Measurements & Calculations LVIDd: 4.5 cm LVOT diam: 2.2 cm LVIDs: 3.1 cm Ao root diam: 2.6 cm FS: 30.1 % asc Aorta Diam: 3.8 cm EPSS: 0.54 cm Ao Arch Diam (Prox Trans): 2.2 cm IVSd: 0.86 cm LVPWd: 0.77 cm LV cardoso. diameter/BSA (cm/m^2): 2.5 LV sys. diameter/BSA (cm/m^2): 1.7 LA A2 area: 21.6 cm2 RA long axis: 5.3 cm LA A4 area: 21.3 cm2 RA area: 18.4 cm2 LA length (vol): 5.1 cm RA vol: 54.4 ml LA vol: 76.8 ml RA : 30.4 ml/m2 LA vol index: 42.9 ml/m2 IVC diam: 1.6 cm RVD1 (basal): 3.7 cm RVD2 (mid): 2.6 cm TAPSE: 1.8 cm Doppler Measurements & Calculations Ao V2 max: 140.0 cm/sec LVOT Max Ted: 99.8 cm/sec Ao V2 mean: 101.3 cm/sec LV V1 max P.0 mmHg Ao max P.8 mmHg LV V1 VTI: 22.2 cm Ao mean P.4 mmHg MATTHEW(I,D): 2.6 cm2 Ao V2 VTI: 33.0 cm MATTHEW(V,D): 2.7 cm2 sev ratio: 0.67 MATTHEW indexed to BSA (cm^2/m^2): 1.4 AI P1/2t: 493.7 msec AI dec slope: 275.9 cm/sec2 MV E max ted: 41.5 cm/sec TR max ted: 246.0 cm/sec MV A max ted: 70.2 cm/sec TR max P.2 mmHg MV E/A: 0.59 PA V2 max: 103.8 cm/sec Med Peak E' Ted: 4.2 cm/sec PA V2 mean: 72.6 cm/sec E/E' med: 9.9 PA mean P.3 mmHg Lat Peak E' Ted: 4.5 cm/sec PA pr(Accel): 31.5 mmHg E/E' lat: 9.2 E/e' average: 9.6 MV dec time: 0.31 sec SV(LVOT): 84.3 ml Reading Physician:11:15 AM
[2024-07-14] MEDS: LEVOTHYROXINE 100 MCG TABLET PO (06:02)
[2024-07-14] MEDS: LEVOTHYROXINE 75 MCG TABLET PO (06:02)
[2024-07-14] MEDS: ALBUTEROL/IPRATROPIUM 3 ML AMPUL INH ×5 (06:11→23:47)
[2024-07-14 06:12] LABS: BUN Creatinine Ratio 23.7 (6-22); Blood Urea Nitrogen 14 mg/dL (7-17); Calcium 8.5 mg/dL (8.4-10.2); Carbon Dioxide 30 mmol/L (22-32); Chloride 97 mmol/L (98-107); Estimated Glomerular Filt Rate > 60 mL/min (>60); Glucose 143 mg/dL (80-110); HEMOLYSIS < 15 (0-50); Potassium 4.3 mmol/L (3.4-5.1); Sodium 134 mmol/L (137-145)
--- NOTE | 2024-07-14 07:16 | PM.HP.1 ---
History of Present Illness History of Present Illness Date Patient Seen: 07/14/24 Chief complaint: Having a hard time breathing Narrative: From night doctor: Henna Darden is an 84 y/o F, with h/o HTN, on HCTZ, Metoprolol and ARB, s'/p Pacemaker for bradycardia, Hypothyroidism, on Levothyroxine 175 mcg daily, Thyroid Cancer s/p Thyroidectomy, and Chronic ? 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 These details are per patient, I an unable to locate these encounters/ pulm clinic visits. 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 Sghe denies h/o LA, CHF, PE, DVT, Stroke, is a life long non smoke Pt came to ED sec to worsening Shortness of breath, beyond her baseline and wheezing , and these symptoms started 4 days ago, as the [place] in her home were getting sanded andc she had dust exposure. She has noted cough productive of white sputum, no hemoptysis.Denies light headedness or Syncope. Pt denies f/c, CP, Abd Pain, N/V, severe headaches, any sick contact or recent travel. 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 EMS noted pt had an O2 sat of 88% on RA, was put on 2 L nc and O2 sats improved to 93%. Her eval in ED: O2 sats 93 % on 2 L , was tachypneic, afebrile, and wheezing EKG : Sinus Rhythm , HR 89, No acute ST- T wave changes noted CXR : no acute changes, no pleural effusion , consolidation or changes of fluid overload Labs Remarkable for K 3.2, Na 133, Cl 96 No Leukocytosis, Troponin < 0.012 Pro BNP up at 1810, though pt not appearing clinically fluid overloaded Given Duoneb Inh treatments , and Solumedrol 125 mg IV Was put on 4 L O2 nc to maintain O2 sats of 94% Pt was given KCL, and referred to Hospitalist team for further care/ observation . Additional information: She lives in [place] with her . She was followed by Dr. Portillo at [facility] pulmonary in [place]. She was seen him for many years. He feels that her clinical situation is most consistent with COPD, although she was never smoked in the past. She was treated for mycobacterium in the past. She was had progressive dyspnea since admission to the hospital in [place] over April. She did have an oxygen test tomorrow at [facility] as well as a CT scan. We will clarify what these 2 studies are in arranged for them to happen today. She denies URI symptoms including rhinorrhea, or cough. No recent fevers, or chills. [facility] Medical History HTN (hypertension) Hypothyroidism Chronic interstitial lung disease Social History household members: spouse Smoking Status: Never smoker alcohol intake: current Meds Home Medications and Allergies Home Medications Medication Instructions Recorded Confirmed Type albuterol sulfate 90 mcg/actuation 2 puff inhalation 4XD PRN wheezing 07/13/24 07/13/24 History aerosol inhaler irbesartan 300 1 tab PO DAILY 07/13/24 07/13/24 History mg-hydrochlorothiazide 12.5 mg tablet levothyroxine 175 mcg tablet 175 mcg PO DAILY 07/13/24 07/13/24 History metoprolol succinate 100 mg 150 mg PO DAILY 07/13/24 07/13/24 History tablet,extended release 24 hr tiotropium 2.5 mcg-olodaterol 2.5 2 puff inhalation DAILY 07/13/24 07/13/24 History mcg/actuation mist for inhalation (Stiolto Respimat) Allergies Allergy/AdvReac Type Severity Reaction Status Date / Time No Known Drug Allergies Allergy Verified 07/13/24 14:23 Review of Systems Review of Systems Narrative: All else reviewed and otherwise unremarkable except as noted in the history and physical. Exam Vital Signs (past 8 hours): - 07/13/24 23:58 07/14/24 00:35 07/14/24 01:00 Temperature Pulse Rate 79 74 Respiratory Rate 16 Blood Pressure 137/80 Pulse Oximetry 96 94 95 Oxygen Delivery Method Nasal Cannula Nasal Cannula Oxygen Flow Rate 4 3.5 07/14/24 04:36 07/14/24 06:11 Temperature 97.5 F L Pulse Rate 72 77 Respiratory Rate 16 16 Blood Pressure 150/92 H Pulse Oximetry 98 95 Oxygen Delivery Method Nasal Cannula Oxygen Flow Rate 3.5 Fraction of Inspired Oxygen 36 SaO2/FiO2 Ratio 261 Oxygen Delivery Method Nasal Cannula Oxygen Flow Rate 3.5 Narrative Exam Narrative: NAD, alert and oriented, fluent speech, calm. She was on oxygen and does get somewhat winded with talking. Normocephalic skull, EOMI, anicteric sclera, symmetric pupils. Oropharynx unremarkable, no droop. Neck supple, midline trachea, no adenopathy. Lungs are mostly clear, normal rate and effort. No real wheezing is appreciated, there are no rales. Heart regular, no murmur gallop or rub. Abdomen is soft, non distended and non tender. Extremities are free of edema. Skin is free of rash or lesions. Joints are not swollen or deformed. Judgment appears to be normal. Objective ECG Impression: Sinus rhythm with premature atrial complexes Left axis deviation Moderate voltage criteria for LVH, may be normal variant ( Sokolow-Lopez , Raciel product ) Nonspecific ST abnormality Imaging Chest x-ray: My impression: Pacemaker. Hyperinflated lungs. Radiologist's impression: On this single view study, no dense airspace disease or pleural effusion. Heart size is at the upper limit of normal. Left chest wall pulse generator with dual-chamber electrode leads in place. Degenerative osseous changes. Labs 07/14/24 05:40 07/14/24 05:40 Labs: Laboratory Results - last 24 hr 07/13/24 07/13/24 07/14/24 14:19 19:05 00:56 WBC 6.3 RBC 4.42 Hgb 13.7 Hct 40.9 MCV 92.6 MCH 31.0 MCHC 33.5 RDW 13.9 Plt Count 254 Neut % (Auto) 81.5 H Lymph % (Auto) 4.1 L Branch % (Auto) 12.6 Eos % (Auto) 0.9 L Baso % (Auto) 0.9 Neut # (Auto) 5100 Lymph # (Auto) 300 L Branch # (Auto) 800 Eos # (Auto) 100 Baso # (Auto) 100 PT 12.8 H INR 1.1 ABG Sample Site Right radial ABG pH 7.42 ABG pCO2 48.5 H ABG pO2 91 ABG HCO3 32 H ABG Total CO2 31 H ABG O2 Saturation 97 ABG Base Excess 5.9 H Harvinder Test Positive O2 Delivery Device Cannula FiO2 % 36.0 % Sodium 133 L Potassium 3.2 L Chloride 96 L Carbon Dioxide 29 BUN 13 Creatinine 0.56 Estimated GFR > 60 BUN/Creatinine Ratio 23.2 H Glucose 111 H Lactate 1.0 Calcium 8.7 Total Bilirubin 0.6 AST 30 ALT 19 Alkaline Phosphatase 75 Troponin I < 0.012 NT-Pro-B Natriuret Pep 1810 H Total Protein 7.0 Albumin 4.2 Globulin 2.8 Albumin/Globulin Ratio 1.5 SARS-CoV-2 (PCR) Negative Influenza A (RT-PCR) Flu a negative Influenza B (RT-PCR) Flu b negative RSV (PCR) Negative 07/14/24 05:40 WBC 3.5 L RBC 4.25 Hgb 13.3 Hct 39.5 MCV 92.9 MCH 31.3 MCHC 33.7 RDW 14.2 Plt Count 250 Neut % (Auto) 90.5 H Lymph % (Auto) 5.8 L Branch % (Auto) 3.3 Eos % (Auto) 0.0 L Baso % (Auto) 0.4 Neut # (Auto) 3100 Lymph # (Auto) 200 L Branch # (Auto) 100 Eos # (Auto) 0 Baso # (Auto) 0 PT INR ABG Sample Site ABG pH ABG pCO2 ABG pO2 ABG HCO3 ABG Total CO2 ABG O2 Saturation ABG Base Excess Harvinder Test O2 Delivery Device FiO2 % Sodium 134 L Potassium 4.3 Chloride 97 L Carbon Dioxide 30 BUN 14 Creatinine 0.59 Estimated GFR > 60 BUN/Creatinine Ratio 23.7 H Glucose 143 H Lactate Calcium 8.5 Total Bilirubin AST ALT Alkaline Phosphatase Troponin I NT-Pro-B Natriuret Pep Total Protein Albumin Globulin Albumin/Globulin Ratio SARS-CoV-2 (PCR) Influenza A (RT-PCR) Influenza B (RT-PCR) RSV (PCR) Assessment & Plan Assessment & Plan narrative: (1) Acute and chronic respiratory failure with hypoxia, subacute and present on admission and active. Diagnosis of COPD by her catheterization laboratory technician in [place], Dr. Portillo. Pt with ? Chronic Interstitial Lung disease/ post treatment ( pt states 6 mos ago: finished taking 3 medications( does not recall names)for non tuberculous Mycobacterial Lung infection, followed by Pulm specialist, with Chronic progressive MAE, and wheezing, exacerbated with dust exposure at her home , with hypoxia, requiring 4 L supp O2 Recd Solumedrol IV and Inh Treatments Continue Inh Treatments prn No Influenza, COVID or RSV detected Additionally Elevated Pro BNP, ? Flash Pulm edema , shall order echo . Echo prior 08/26/22 done as has h/o HTN : LVEF 60-65%, Normal LV and RV size No Pulm HTN Status: Acute (2) Hypokalemia due to excessive renal loss of potassium, present on admission and improving. Problem details: Sec to HCTZ , hold same Status: Acute (3) Hyponatremia, present on admission and active. Problem details: likely sec to Diuresis / HCTZ Status: Acute (4) Hypochloremia, present on admission and active. Problem details: sec to HCTZ Status: Acute (5) Chronic pulmonary disease labeled COPD by catheterization laboratory technician, present on admission and active. Status: Acute (6) Hypothyroidism, present on admission and stable. Problem details: Continue her home dose of Levothyroxine TSH is WNL Status: Acute (7) HTN (hypertension), present on admission stable. Problem details: stable , continue Metoprolol Plan: -CT without con which is what was ordered by her catheterization laboratory technician. We will do this today. -continue bronchodilators pending her CT read. -we will likely go home on 07/14, anticipate a home oxygen evaluation. Time-Based Coding :: 35 min spent with patient and on the chart (including review of chart, obtaining history, exam, reviewing outside data, placing orders, documenting exam and treatment plan, and counseling patient) on 07/14. Quality MIPS - Admit I confirm the patient?s Advance Care Plan is present, Code status is documented, Surrogate decision maker is in patient?s record [If Yes, STOP here]: Yes MIPS - Meds 'Current medications' to include all prescriptions, [id number] products, herbals, cannabis/cannabidiol products, and vitamin/mineral/dietary (nutritional) supplements. I have utilized all available resources to obtain, update, or review the patient?s current medications. [If Yes, STOP here]: Yes
[2024-07-14] MEDS: ENOXAPARIN 40 MG/0.4 ML SYRINGE SUBCUT (08:31)
[2024-07-14] MEDS: METOPROLOL ER 50 MG TABLET 150 MG PO (08:31)
--- NOTE | 2024-07-14 11:21 | DIET.CONS ---
Dietary Consultation Note Admission Date: 07/13/2024 20:41 Assessment: 84 y F admitted for resp failure. Dietitian screened for low MNA. Met with pt at bedside who reports decreased appetite for 6 months now. Reports it has been heightened in last month. Children bring food over for her 3 meals/d and pt only able to eat 25% of meals within last month. Has Ensure, other snacks available and wants to try doing smaller freq meals/ensures to supplement PO intakes, but hasn't so far. Usual body weight 1 yr ago - 180 lb, just in last month has lost 10 lb. Nutrition focused physical exam: Moderate muscle mass loss in deltoid, trapezius, pectoralis major Assessed: temples, clavicle region, interosseous and buccal and orbital fat pads Ht: 170.18 cm Wt: 68.039 kg BMI: 23.5 UBW: 81.8 kg 1 year ago (-16.5% weight loss in 1 yr, non-severe), 72.73 kg 1 month age (-6% weight loss in 1 month, severe) Last BM: 07/12/24 (07/13/24 20:50) MNA: 7 Govind Score: 21 Diet: 07/14/24 Breakfast General (Regular) Diet Diet Modifications: Food Texture: Level 7 - Regular Liquid Consistency: Level 0 - Thin Heart Healthy Diet Diet Modifications: Low Sodium Diet (2gm) Diet Modifications: Labs: RBC 4.25 X10^6/uL (4.0-5.2) 07/14/24 05:40 Hgb 13.3 g/dL (12.0-16.0) 07/14/24 05:40 Hct 39.5 % (36-46) 07/14/24 05:40 Creatinine 0.59 mg/dL (0.52-1.04) 07/14/24 05:40 Lactate 1.0 mmol/L (0.7-2.1) 07/13/24 14:19 NT-Pro-B Natriuret Pep 1810 pg/mL (<450) H 07/13/24 14:19 Nutrition Diagnosis: Severe acute Protein Calorie Malnutrition r/t inadequate oral intake in setting of dyspnea as evidenced by <50% of estimated energy needs for 1 month per diet recall (severe), 6% weight loss within 1 month (severe), and moderate muscle mass loss (deltoid, trapezius, pectoralis major) Interventions: -Open to ONS 1-2x/d -Discussed and encouraged small freq meals to meet EER, continuing with already prepared foods made by children, ONS at home if unable to do a meal EER: 2115-7215 kcals (25-27 kcals/kg per BMI) 70-80 g protein (1-1.2 g/kg per age/reported interstitial pulmonary disease) Monitoring/Evaluations: PO intakes Electronically Signed by: Rukhsana Wright 07/14/24 11:21 Clinical Dietitian [address] [address]
--- NOTE | 2024-07-14 11:32 | DI.CT.S_ITS ---
PROCEDURE: CT CHEST WO CON INDICATIONS: dyspnea TECHNIQUE: Noncontrast 5 mm thick sections acquired from the pulmonary apices to the posterior costophrenic angles. 1 mm lung window, 5 mm thick coronal and sagittal and 7 mm axial MIP reformats were then acquired. For radiation dose reduction, the following was used: automated exposure control, adjustment of mA and/or kV according to patient size. COMPARISON: [facility], CT, CT CHEST W CON, 08/23/2022, 11:29. FINDINGS: Left-sided dual-chamber pacemaker in place. Lower Neck: No enlarged lymph nodes. Thyroidectomy Thyroid: No thyroid nodules which require sonographic follow up, per consensus guidelines. Axillae: No enlarged lymph nodes. Chest Wall: Unremarkable. Bones: Unremarkable. Lungs and Pleura: Right middle lobe and lingular septal thickening and pulmonary nodules associated with mild bronchiectasis is similar to the prior exam. Right lower lobe peripheral nodules have essentially almost resolved with residual focal bronchiectasis and tiny nodules. Similar pattern in the left lower lobe costophrenic sulcus Heart: Heart size is normal. No pericardial effusion. Thoracic Vessels: The aorta and pulmonary arteries demonstrate normal size. Atherosclerotic vascular calcification noted in the aortic arch. Mediastinum and Kanchan: No enlarged lymph nodes. Esophagus: No wall thickening. No hiatal hernia. Upper Abdomen: Visualized upper abdomen solid organs and bowel loops appear normal. IMPRESSION: Resolving bibasilar tree-in-bud inflammatory nodules. Residual mild focal bronchiectasis Previously described peribronchial nodes are not well distinguished without contrast. No mediastinal adenopathy. Approved by: Suresh Kapoor M.D. on 07/14/2024 at 13:18
--- NOTE | 2024-07-14 14:07 | CM.DANOTE ---
Initial DCP Assessment Visit Note Reviewed EMR and team rounds for status updates. Met with pt at bedside to introduce self and role, pt was found to be sitting upright in bed, alert/oriented, able to share what brought her to the hospital and her post-d/c care plan for further assistance. Pt lives independently at baseline with her , and her dtr next door, in [place]. Her daughter will plan to transport her home once she's medically cleared for d/c, likely 07/14. Payor: Medicare PCP: Dr. Mcclendon Pt is a 84 year-old F with a hx of COPD, not on home O2, presented via EMS for worsening SOB, chest tightness, and cough for the last 24-hours. She was started on 2LO2 en route to the ED, and given DuoNebs once she arrived to the ED. Due to her continued oxegyn need, she as admitted to OBS for further O2/respiratory treatment and monitoring. DCP will continue to monitor for any evolving final d/c assistance/resource needs prior to her departure. Discharge Planning/Care Management Advanced directive, confirm from FAMILY Start: 07/13/24 21:21 Freq: Q24H Status: Active Protocol: Document 07/13/24 21:21 MM (Rec: 07/13/24 21:57 MM [id number]) Advance Directive, confirm on record Time 21:57 Person contacted Patient Copy received No CM Discharge Assessment Start: 07/14/24 14:05 Freq: Status: Active Protocol: Document 07/14/24 14:05 DPL (Rec: 07/14/24 14:06 DPL [id number]) Discharge Planning Assessment Assigned Home Care Coordinator TANA Miranda Advance Directives? Yes Advance Directives on File No History Provided By Patient,Medical Record Has Patient been admitted in last 30 No days? Prior Living Arrangements House Household Members spouse Type of transporation used prior to Drives own vehicle admit Independent with ADL's Yes Is patient alert and oriented? Yes Comment N/A Caregiver for Another No Comment N/A Comment No OP d/c needs identified at this time. Barriers to Discharge No Discharge Plan Home Referrals Initiated None needed Whiteboard Updated in Patient Room with Yes name and ext. # of Home Care Coordinator Review Status In Process Please Provide Date Initial DC 07/14/24 Assessment Was Performed
[2024-07-15] VITALS (11 sets, daily range): BP systolic 99–164; BP diastolic 67–86; PULSE 73–87; RESP 16–20; TEMP 36.2–37.1; O2SAT 92–96
[2024-07-15 05:32] LABS: Hematocrit 40.7 % (36-46); Hemoglobin 13.7 g/dL (12.0-16.0); Mean Corpuscular HGB Conc 33.7 % (30-36); Mean Corpuscular Hemoglobin 31.5 PG (26-34); Mean Corpuscular Volume 93.3 fL (80-100); Platelet Count 245 X10^3/uL (150-400); Red Blood Cell Count 4.37 X10^6/uL (4.0-5.2); Red Cell Distribution Width 14.5 % (11.6-14.8); White Blood Cell Count 5.5 X10^3/uL (4.5-11.0)
[2024-07-15] MEDS: LEVOTHYROXINE 75 MCG TABLET PO (05:35)
[2024-07-15] MEDS: LEVOTHYROXINE 100 MCG TABLET PO (05:35)
[2024-07-15 05:49] LABS: BUN Creatinine Ratio 31.3 (6-22); Blood Urea Nitrogen 20 mg/dL (7-17); Calcium 8.3 mg/dL (8.4-10.2); Carbon Dioxide 29 mmol/L (22-32); Chloride 100 mmol/L (98-107); Estimated Glomerular Filt Rate > 60 mL/min (>60); Glucose 102 mg/dL (80-110); HEMOLYSIS < 15 (0-50); Potassium 3.9 mmol/L (3.4-5.1); Sodium 136 mmol/L (137-145)
[2024-07-15] MEDS: ALBUTEROL/IPRATROPIUM 3 ML AMPUL INH ×5 (07:38→22:18)
--- NOTE | 2024-07-15 08:24 | PC.NURSE ---
Addendum entered by Elise Pugh R.N. 07/16/24 14:54: Patient complained of nausea, given zofran and she feels better. She thinks it is from her medications that she has been taking here. Will pass onto market researcher that she would like zofran before taking her morning medication. Original Note: Patient ate well at breakfast. She is alert and orientede x4. Upon ausculation of patients lungs, wheezes heard in r.upper and lower lobes on inspiration and expiration. She is on 2L of O2 and does have some sob with exertion. Her cough is productive and wet. She denies pain at this time.
[2024-07-15] MEDS: METOPROLOL ER 50 MG TABLET 150 MG PO (08:33)
[2024-07-15] MEDS: ENOXAPARIN 40 MG/0.4 ML SYRINGE SUBCUT (08:33)
--- NOTE | 2024-07-15 10:37 | CM.DPNOTE ---
DCP note MOTOR VEHICLE LIGHT ASSEMBLER reviewed EMR Per provider in morning rounds, may do home O2 eval and dc pt home today. Per chart, pt on 3ltrs O2 at the moment. MOTOR VEHICLE LIGHT ASSEMBLER met with pt in room. pt confirms on no home O2 at baseline. confirms plan is home with partner/dtr when medically stable and denies CM needs at this point. P: home with OP f/u when medically stable. May need home O2. no CM needs identified at this time. CM team will continue to follow as needed TANA Espitia
[2024-07-15] MEDS: predniSONE 20 MG TABLET 60 MG PO (11:24)
[2024-07-15] MEDS: levoFLOXacin 250 MG TABLET 750 MG PO (11:24)
[2024-07-15] MEDS: FUROSEMIDE 20 MG/2 ML VIAL IV (11:24)
--- NOTE | 2024-07-15 13:33 | PM.PN.1 ---
Subjective Subjective Date Patient Seen: 07/15/24 Interval history: 84 year old female with PMH of COPD (vs ILD vs bronchiectasis) admitted with acute respiratory failure with hypoxia. Patient is not on home O2, O2 use has improved the last few days, only got IV solumedrol in the ER, not continued by provider yesterday. She reports no changes in symptoms, did have productive cough overnight, still feels very dyspnic. Exam Vital Signs (past 8 hours): - 07/15/24 07:38 07/15/24 08:00 07/15/24 10:59 Temperature 97.1 F L Pulse Rate 77 74 77 Respiratory Rate 18 16 18 Blood Pressure 164/86 H Pulse Oximetry 95 94 94 Oxygen Delivery Method Nasal Cannula Nasal Cannula Oxygen Flow Rate 3 3 2 Fraction of Inspired Oxygen 32 28 07/15/24 12:00 Temperature 97.9 F Pulse Rate 73 Respiratory Rate 19 Blood Pressure 132/76 Pulse Oximetry 95 Oxygen Delivery Method Oxygen Flow Rate 2 Fraction of Inspired Oxygen Fraction of Inspired Oxygen 28 SaO2/FiO2 Ratio 335 Oxygen Delivery Method Nasal Cannula Oxygen Flow Rate 2 Glucose POC: 111 Narrative Exam Narrative: Pt is resting in hospital bed, WDWN, and is able to talk in full sentences HEENT: AT, NC EOMI, PERRL, No scleral Icterus, Conjunctivae are normal Neck is supple, No TNG, no JVD no Lympadenopathy Chest: Normal Resp effort, Diminished BS At bases, otherwise CTA, no Rhonchi, Crackles or wheezing. Heart: RRR, S1 S2, No M/G/R Ext: no edema Skin: warm and dry, no Cyanosis, no rash , no bruising Neuro : non focal, able to move all extremities, speech is clear, is interactive. Psyche: Normal affect, cooperative, Judgement and insight are good. Objective Labs 07/15/24 05:25 07/15/24 05:25 Labs: Laboratory Results - last 24 hr 07/15/24 05:25 WBC 5.5 D RBC 4.37 Hgb 13.7 Hct 40.7 MCV 93.3 MCH 31.5 MCHC 33.7 RDW 14.5 Plt Count 245 Sodium 136 L Potassium 3.9 Chloride 100 Carbon Dioxide 29 BUN 20 H Creatinine 0.64 Estimated GFR > 60 BUN/Creatinine Ratio 31.3 H Glucose 102 Calcium 8.3 L PFSH Medical History HTN (hypertension) Hypothyroidism Chronic interstitial lung disease Social History household members: spouse Smoking Status: Never smoker alcohol intake: current Assessment & Plan Assessment & Plan narrative: (1) Acute respiratory failure (possibly on chronic) with hypoxia, possible bacterial pneumonia - patient not on home O2 normally - currently requiring 2L via NC - restart course of steroids, antibiotics given appearance of CT imaging to see if any improvement and able to wean from O2. Replaced home Stiolto with duonebs, prn albuterol - Will also diurese given TTE appearance with elevated RVSP. TTE with normal EF. Trial of 20 mg IV lasix today. (2) Hypokalemia due to excessive renal loss of potassium, present on admission and improving. - will continue to follow with addition of furosemide today. (3) Hyponatremia, present on admission and active. - Na 136 (4) Hypochloremia, present on admission and improved. (5) Chronic pulmonary disease labeled COPD by analytics senior manager, present on admission and active, with exacerbation (6) Hypothyroidism, present on admission and stable. (7) HTN (hypertension), present on admission stable. (8) Hx of PPM - paced on telemetry, can stop telemetry today. Plan: -CT chest with improvement compared to prior 2 year ago, unclear imaging in between. Given symptomatology treat for COPD/bronchiectasis flare with 60 mg prednisone daily, treat for PNA with augmentin, and diurese slightly given elevated RVSP with possible volume overload. -if able to wean from O2 likely discharge home, may be chronic progression of underlying lung disease but will give her a few days to see if can wean from O2 prior to discharge home. Dispo: Inpatient, home in a couple of days or as soon as hypoxia resolves. Code: Full, surrogate is patient's spouse Time-Based Coding :: [TOTAL MINUTES] spent with patient and on the chart (including review of chart, obtaining history, exam, reviewing outside data, placing orders, documenting exam and treatment plan, and counseling patient) on [DATE].
[2024-07-16] VITALS (7 sets, daily range): BP systolic 108–158; BP diastolic 72–91; PULSE 76–91; RESP 15–20; TEMP 36.1–36.6; O2SAT 92–96
[2024-07-16] MEDS: LEVOTHYROXINE 75 MCG TABLET PO (05:56)
[2024-07-16] MEDS: LEVOTHYROXINE 100 MCG TABLET PO (05:56)
[2024-07-16 06:33] LABS: Hematocrit 42.1 % (36-46); Hemoglobin 14.4 g/dL (12.0-16.0); Mean Corpuscular HGB Conc 34.2 % (30-36); Mean Corpuscular Hemoglobin 31.9 PG (26-34); Mean Corpuscular Volume 93.2 fL (80-100); Platelet Count 285 X10^3/uL (150-400); Red Blood Cell Count 4.52 X10^6/uL (4.0-5.2); White Blood Cell Count 5.2 X10^3/uL (4.5-11.0)
[2024-07-16 06:48] LABS: BUN Creatinine Ratio 27.7 (6-22); Blood Urea Nitrogen 18 mg/dL (7-17); Calcium 8.6 mg/dL (8.4-10.2); Carbon Dioxide 33 mmol/L (22-32); Chloride 97 mmol/L (98-107); Estimated Glomerular Filt Rate > 60 mL/min (>60); Glucose 95 mg/dL (80-110); HEMOLYSIS < 15 (0-50); Potassium 3.8 mmol/L (3.4-5.1); Sodium 139 mmol/L (137-145)
[2024-07-16] MEDS: predniSONE 20 MG TABLET 60 MG PO (08:45)
[2024-07-16] MEDS: METOPROLOL ER 50 MG TABLET 150 MG PO (08:45)
[2024-07-16] MEDS: ENOXAPARIN 40 MG/0.4 ML SYRINGE SUBCUT (08:46)
[2024-07-16] MEDS: levoFLOXacin 250 MG TABLET 750 MG PO (08:46)
--- NOTE | 2024-07-16 11:23 | DIET.PN1 ---
Dietary Progress Note Assessment: RD f/u. Pt didn't like ONS/smoothie options. Reports improved PO intakes, last recorded PO 90% this morning. Discussed addition of extra protein based side options available to support EER. Will continue to monitor PO intakes. Ht: 170.18 cm Wt: 68.039 kg BMI: 23.5 Last BM: 07/12/24 (07/13/24 20:50) MNA: 7 Govind Score: 22 Diet: 07/14/24 Breakfast General (Regular) Diet Diet Modifications: Food Texture: Level 7 - Regular Liquid Consistency: Level 0 - Thin Heart Healthy Diet Diet Modifications: Low Sodium Diet (2gm) Diet Modifications: Nutrition Percent Meal Consumed 90% 07/16/24 08:50 Labs: RBC 4.52 X10^6/uL (4.0-5.2) 07/16/24 05:46 Hgb 14.4 g/dL (12.0-16.0) 07/16/24 05:46 Hct 42.1 % (36-46) 07/16/24 05:46 Creatinine 0.65 mg/dL (0.52-1.04) 07/16/24 05:46 Lactate 1.0 mmol/L (0.7-2.1) 07/13/24 14:19 NT-Pro-B Natriuret Pep 1810 pg/mL (<450) H 07/13/24 14:19 Electronically Signed by: Rukhsana Wright 07/16/24 11:23 Clinical Dietitian [address] [id number]
--- NOTE | 2024-07-16 12:02 | CM.DPNOTE ---
DCP note [employer] reviewed EMR Per chart, pt has been on room air since midnight. per provider in morning rounds, anticipate dc once stable on room air. still may need new home O2. maybe today vs tomorrow. P: home with OP f/u when medically stable. May need home O2. no CM needs identified at this time. CM team will continue to follow as needed TANA Espitia
[2024-07-16] MEDS: ONDANSETRON 4 MG/2 ML INJ IV (12:32)
--- NOTE | 2024-07-16 14:05 | P.PN_ITS ---
Subjective Subjective Date Patient Seen: 07/16/24 Interval history: 84 year old female with PMH of COPD (vs ILD vs bronchiectasis) admitted with acute respiratory failure with hypoxia. Patient is not on home O2, O2 use has improved the last few days, only got IV solumedrol in the ER, not continued by provider yesterday. She reports more productive cough today but no real changes in symptoms. She is on less oxygen today, able to be off intermittently later in the day. Exam Vital Signs (past 8 hours): - 07/16/24 08:50 07/16/24 09:10 07/16/24 12:44 Temperature 97.1 F L 97.3 F L Pulse Rate 86 91 H Respiratory Rate 20 20 Blood Pressure 131/72 108/85 Pulse Oximetry 93 94 92 Oxygen Delivery Method Room Air Oxygen Flow Rate 0 0 Fraction of Inspired Oxygen 28 SaO2/FiO2 Ratio 335 Oxygen Delivery Method Room Air Oxygen Flow Rate 0 Narrative Exam Narrative: Pt is resting in hospital bed, WDWN, and is able to talk in full sentences HEENT: AT, NC EOMI, PERRL, No scleral Icterus, Conjunctivae are normal Neck is supple, No TNG, no JVD no Lympadenopathy Chest: Normal Resp effort, Diminished BS At bases, some wheezing today but improved air movement compared to yesterday. Heart: RRR, S1 S2, No M/G/R Ext: no edema Skin: warm and dry, no Cyanosis, no rash , no bruising Neuro : non focal, able to move all extremities, speech is clear, is interactive. Psyche: Normal affect, cooperative, Judgement and insight are good. Objective Labs 07/16/24 05:46 07/16/24 05:46 Labs: Laboratory Results - last 24 hr 07/16/24 05:46 WBC 5.2 RBC 4.52 Hgb 14.4 Hct 42.1 MCV 93.2 MCH 31.9 MCHC 34.2 RDW 14.0 Plt Count 285 Sodium 139 Potassium 3.8 Chloride 97 L Carbon Dioxide 33 H BUN 18 H Creatinine 0.65 Estimated GFR > 60 BUN/Creatinine Ratio 27.7 H Glucose 95 Calcium 8.6 PFSH Medical History HTN (hypertension) Hypothyroidism Chronic interstitial lung disease Social History household members: spouse Smoking Status: Never smoker alcohol intake: current Assessment & Plan Assessment & Plan narrative: (1) Acute respiratory failure (possibly on chronic) with hypoxia, possible bacterial pneumonia, POA, improving - patient not on home O2 normally - currently slow improvement in O2 requirements - restarted course of steroids, antibiotics given appearance of CT imaging to see if any improvement and able to wean from O2. Replaced home Stiolto with duonebs, prn albuterol. Over the past 24 hours since starting she has improved with decreased O2 requirements. Still remains dyspnic today with exertion. - Did diuresis yesterday given TTE appearance with elevated RVSP. TTE with normal EF. Trial of 20 mg IV lasix with ? improvement. Will restart home HCTZ instead today. (2) Hypokalemia due to excessive renal loss of potassium, present on admission and improving. - K 3.8, so okay today. - restart home HCTZ as discussed above (3) Hyponatremia, present on admission and active. - Na 136 - monitor closely with resumption of HCTZ. Will repeat labs tomorrow. (4) Hypochloremia, present on admission and improved. (5) Chronic pulmonary disease labeled COPD by pulley mortiser operator, present on admission and active, with exacerbation - continue with prednisone as noted above. (6) Hypothyroidism, present on admission and stable. (7) HTN (hypertension), present on admission stable. (8) Hx of PPM - paced on telemetry, can stop telemetry today. Plan: -CT chest with improvement compared to prior 2 year ago, unclear imaging in between. Given symptomatology treat for COPD/bronchiectasis flare with 60 mg prednisone daily, treat for PNA with augmentin, and diurese slightly given elevated RVSP with possible volume overload. -if able to wean from O2 likely discharge home, may be chronic progression of underlying lung disease but will give her a few days to see if can wean from O2 prior to discharge home. Dispo: Inpatient, home in a couple of days or as soon as hypoxia resolves, at this rate possibly discharge home tomorrow. Code: Full, surrogate is patient's spouse Time-Based Coding :: [TOTAL MINUTES] spent with patient and on the chart (including review of chart, obtaining history, exam, reviewing outside data, placing orders, documenting exam and treatment plan, and counseling patient) on [DATE].
--- NOTE | 2024-07-16 17:56 | DI.RAD.S_ITS ---
PROCEDURE: XR CHEST 1V INDICATIONS: shortness of breath TECHNIQUE: One view of the chest was acquired. COMPARISON: [facility], CR, XR CHEST 1V, 07/13/2024, 13:46. FINDINGS AND IMPRESSION: On this single view study, no airspace consolidation. No pleural effusions. Previously seen nodularity is better assessed on chest CT. Heart size is at the upper limit of normal. Cardiac electrode leads. Degenerative osseous changes. Dictated by: Cosme Bobo M.D. on 07/16/2024 at 18:12 Approved by: Cosme Bobo M.D. on 07/16/2024 at 18:13
--- NOTE | 2024-07-16 18:09 | PM.CALLCOV.1 ---
Call Coverage Note Note Narrative of Care Provided: Patient stated she felt like something is very wrong. Concerned about her 10 lb weight loss and has severe worry. CXR done at bedside, reviewed and no significant changes from before. There is no pleural effusion, pneumothorax, nor abdominal free air / distension. Will check an EKG and troponin. Has a PPM so likely paced rhythm. Suspect this is her reaction with prednisone 60 mg. Will reduce dosing to 20 mg tomorrow, and she has had nausea all day so already agreed to change antibiotic to augmentin tomorrow AM.
[2024-07-16 18:59] LABS: Troponin I < 0.012 ng/mL (0.01-0.034)
[2024-07-16] MEDS: ALBUTEROL/IPRATROPIUM 3 ML AMPUL INH (19:27)
[2024-07-16] MEDS: LORazepam 2 MG/ML INJ 0.5 MG IV (21:47)
[2024-07-17] VITALS (11 sets, daily range): BP systolic 112–153; BP diastolic 64–81; PULSE 71–83; RESP 15–20; TEMP 36.1–37.2; O2SAT 92–98
[2024-07-17] MEDS: LEVOTHYROXINE 100 MCG TABLET PO (06:01)
[2024-07-17] MEDS: LEVOTHYROXINE 75 MCG TABLET PO (06:01)
[2024-07-17 06:36] LABS: Add Manual Diff / Slide Review NO; Basophils Absolute Auto 0 /uL (0-100); Basophils Percent Auto 0.2 % (0-2); Eosinophils Absolute Auto 0 /uL (0-450); Eosinophils Percent Auto 0.1 % (2-4); Hematocrit 39.1 % (36-46); Hemoglobin 13.3 g/dL (12.0-16.0); Lymphocytes Absolute Auto 500 /uL (1100-4500); Lymphocytes Percent Auto 9.7 % (25-40); Mean Corpuscular Hemoglobin 31.5 PG (26-34); Mean Corpuscular Volume 92.6 fL (80-100); Monocytes Absolute Auto 800 /uL (0-900); Monocytes Percent Auto 14.7 % (3-14); Neutrophils Absolute Auto 4000 /uL (1500-7000); Neutrophils Percent Auto 75.3 % (50-75); Platelet Count 245 X10^3/uL (150-400); Red Blood Cell Count 4.22 X10^6/uL (4.0-5.2); Red Cell Distribution Width 14.2 % (11.6-14.8); White Blood Cell Count 5.4 X10^3/uL (4.5-11.0)
[2024-07-17 06:48] LABS: BUN Creatinine Ratio 23.9 (6-22); Blood Urea Nitrogen 16 mg/dL (7-17); Calcium 8.4 mg/dL (8.4-10.2); Carbon Dioxide 33 mmol/L (22-32); Chloride 99 mmol/L (98-107); Estimated Glomerular Filt Rate > 60 mL/min (>60); Glucose 88 mg/dL (80-110); HEMOLYSIS < 15 (0-50); Magnesium 1.5 mg/dL (1.6-2.3); Sodium 137 mmol/L (137-145)
[2024-07-17] MEDS: MAGNESIUM SULFATE 2 GM/50 ML PIGGYBACK IV (08:56)
[2024-07-17] MEDS: hydroCHLOROthiazide 25 MG TABLET 12.5 MG PO (09:07)
[2024-07-17] MEDS: AMOXICILLIN/CLAV 875/125 MG 1 TAB PO ×2 (09:07→20:37)
[2024-07-17] MEDS: ONDANSETRON 4 MG/2 ML INJ IV ×2 (09:07→20:37)
[2024-07-17] MEDS: METOPROLOL ER 50 MG TABLET 150 MG PO (09:08)
[2024-07-17] MEDS: predniSONE 20 MG TABLET PO (09:09)
[2024-07-17] MEDS: ENOXAPARIN 40 MG/0.4 ML SYRINGE SUBCUT (09:09)
[2024-07-17] MEDS: ALBUTEROL/IPRATROPIUM 3 ML AMPUL INH ×3 (10:01→20:04)
--- NOTE | 2024-07-17 18:43 | PM.PN.1 ---
Subjective Subjective Interval history: 84 year old female with PMH of COPD (vs ILD vs bronchiectasis) admitted with acute respiratory failure with hypoxia. Patient is not on home O2, O2 use has improved the last few days. She feels improved today, still on 1L O2. Exam Vital Signs (past 8 hours): - 07/17/24 12:00 07/17/24 14:52 07/17/24 16:00 Temperature 97.6 F 97.6 F Pulse Rate 71 77 Respiratory Rate 18 16 Blood Pressure 120/79 122/70 Pulse Oximetry 98 95 93 Oxygen Delivery Method Room Air Oxygen Flow Rate 1 1 1 Fraction of Inspired Oxygen 28 SaO2/FiO2 Ratio 335 Oxygen Delivery Method Room Air Oxygen Flow Rate 1 Narrative Exam Narrative: Pt is resting in hospital bed, WDWN, and is able to talk in full sentences HEENT: AT, [place] EOMI, PERRL, No scleral Icterus, Conjunctivae are normal Neck is supple, No TNG, no JVD no Lympadenopathy Chest: Normal Resp effort, Diminished BS At bases, some wheezing today but improved air movement compared to yesterday. Heart: RRR, S1 S2, No M/G/R Ext: no edema Skin: warm and dry, no Cyanosis, no rash , no bruising Neuro : non focal, able to move all extremities, speech is clear, is interactive. Psyche: Normal affect, cooperative, Judgement and insight are good. Objective Labs 07/17/24 06:27 07/17/24 06:27 Labs: Laboratory Results - last 24 hr 07/16/24 07/17/24 18:20 06:27 WBC 5.4 RBC 4.22 Hgb 13.3 Hct 39.1 MCV 92.6 MCH 31.5 MCHC 34.0 RDW 14.2 Plt Count 245 Neut % (Auto) 75.3 H Lymph % (Auto) 9.7 L [place] % (Auto) 14.7 H Eos % (Auto) 0.1 L Baso % (Auto) 0.2 Neut # (Auto) 4000 Lymph # (Auto) 500 L [place] # (Auto) 800 Eos # (Auto) 0 Baso # (Auto) 0 Sodium 137 Potassium 4.0 Chloride 99 Carbon Dioxide 33 H BUN 16 Creatinine 0.67 Estimated GFR > 60 BUN/Creatinine Ratio 23.9 H Glucose 88 Calcium 8.4 Magnesium 1.5 L Troponin I < 0.012 [facility] Medical History HTN (hypertension) Hypothyroidism Chronic interstitial lung disease Social History household members: spouse Smoking Status: Never smoker alcohol intake: current Assessment & Plan Assessment & Plan narrative: (1) Acute respiratory failure (possibly on chronic) with hypoxia, possible bacterial pneumonia, POA, improving - patient not on home O2 normally - currently slow improvement in O2 requirements, will try to wean off before discharge home. - restarted course of steroids, antibiotics given appearance of CT imaging to see if any improvement and able to wean from O2. Replaced home Stiolto with duonebs, prn albuterol. Over the past 24 hours since starting she has improved with decreased O2 requirements. Still remains dyspnic today with exertion but improving. - Did diuresis yesterday given TTE appearance with elevated RVSP. TTE with normal EF. Trial of 20 mg IV lasix with ? improvement. Restarted home HCTZ 05/15. - reduced prednisone from 60 mg to 20 mg with severe anxiety yesterday requiring chest pain evaluation, which was unremarkable. Improved today. - changed levquin to augmentin on 07/17 for nausea reported 05/15. (2) Hypokalemia due to excessive renal loss of potassium, present on admission and improving. - K 4.0 so okay today. - restarted home HCTZ as discussed above (3) Hyponatremia, present on admission and active., improved - monitor closely with resumption of HCTZ. Will repeat labs tomorrow again (4) Hypochloremia, present on admission and improved. (5) Chronic pulmonary disease labeled COPD by hairspring truing inspector, present on admission and active, with exacerbation - continue with prednisone as noted above. (6) Hypothyroidism, present on admission and stable. (7) HTN (hypertension), present on admission stable. (8) Hx of PPM - paced on telemetry, can stop telemetry today. Plan: -CT chest with improvement compared to prior 2 year ago, unclear imaging in between. Given symptomatology treat for COPD/bronchiectasis flare with 60 mg prednisone daily, treat for PNA with augmentin, and diurese slightly given elevated RVSP with possible volume overload. -if able to wean from O2 likely discharge home, may be chronic progression of underlying lung disease but will give her a few days to see if can wean from O2 prior to discharge home. Dispo: Inpatient, home in a couple of days or as soon as hypoxia resolves. If still on O2 tomorrow will try to get arranged for home O2 on Wednesday 07/19. Code: Full, surrogate is patient's spouse Time-Based Coding :: [TOTAL MINUTES] spent with patient and on the chart (including review of chart, obtaining history, exam, reviewing outside data, placing orders, documenting exam and treatment plan, and counseling patient) on [DATE].
[2024-07-17] MEDS: TRAZODONE 50 MG TABLET PO (20:37)
[2024-07-18] VITALS (12 sets, daily range): BP systolic 104–138; BP diastolic 63–94; PULSE 54–84; RESP 16–19; TEMP 36.4–36.6; O2SAT 91–97
[2024-07-18] MEDS: LEVOTHYROXINE 100 MCG TABLET PO (06:31)
[2024-07-18] MEDS: LEVOTHYROXINE 75 MCG TABLET PO (06:31)
[2024-07-18 07:01] LABS: Add Manual Diff / Slide Review NO; Basophils Absolute Auto 0 /uL (0-100); Basophils Percent Auto 0.4 % (0-2); Eosinophils Absolute Auto 0 /uL (0-450); Eosinophils Percent Auto 0.5 % (2-4); Hematocrit 39.3 % (36-46); Hemoglobin 13.4 g/dL (12.0-16.0); Lymphocytes Absolute Auto 700 /uL (1100-4500); Lymphocytes Percent Auto 11.1 % (25-40); Mean Corpuscular HGB Conc 34.2 % (30-36); Mean Corpuscular Hemoglobin 31.7 PG (26-34); Mean Corpuscular Volume 92.8 fL (80-100); Monocytes Absolute Auto 600 /uL (0-900); Monocytes Percent Auto 9.7 % (3-14); Neutrophils Absolute Auto 5100 /uL (1500-7000); Neutrophils Percent Auto 78.3 % (50-75); Platelet Count 246 X10^3/uL (150-400); Red Blood Cell Count 4.23 X10^6/uL (4.0-5.2); White Blood Cell Count 6.6 X10^3/uL (4.5-11.0)
[2024-07-18 07:12] LABS: Blood Urea Nitrogen 17 mg/dL (7-17); Carbon Dioxide 31 mmol/L (22-32); Chloride 99 mmol/L (98-107); Estimated Glomerular Filt Rate > 60 mL/min (>60); Glucose 87 mg/dL (80-110); HEMOLYSIS < 15 (0-50); Magnesium 1.7 mg/dL (1.6-2.3); Potassium 3.5 mmol/L (3.4-5.1); Sodium 136 mmol/L (137-145)
[2024-07-18] MEDS: ALBUTEROL/IPRATROPIUM 3 ML AMPUL INH ×3 (07:28→18:47)
[2024-07-18] MEDS: ONDANSETRON 4 MG ODT SL ×2 (09:08→20:53)
[2024-07-18] MEDS: METOPROLOL ER 50 MG TABLET 150 MG PO (09:09)
[2024-07-18] MEDS: ENOXAPARIN 40 MG/0.4 ML SYRINGE SUBCUT (09:09)
[2024-07-18] MEDS: AMOXICILLIN/CLAV 875/125 MG 1 TAB PO ×2 (09:09→20:53)
[2024-07-18] MEDS: hydroCHLOROthiazide 25 MG TABLET 12.5 MG PO (09:09)
[2024-07-18] MEDS: predniSONE 20 MG TABLET PO (09:09)
[2024-07-18] MEDS: POTASSIUM CHLORIDE 20 MEQ TAB 40 MEQ PO (09:13)
--- NOTE | 2024-07-18 09:34 | P.PN_ITS ---
Subjective Subjective Interval history: 84 year old female with PMH of COPD (vs ILD vs bronchiectasis) admitted with acute respiratory failure with hypoxia. Patient is not on home O2, O2 use has improved the last few days and she is off O2 today. She feels improved, still dizzy and dyspnic with exertion to the bathroom today. Exam Vital Signs (past 8 hours): - 07/18/24 04:00 07/18/24 07:32 07/18/24 07:57 Temperature 97.5 F L Pulse Rate 76 65 Respiratory Rate 16 16 Blood Pressure 130/94 H Pulse Oximetry 97 95 Oxygen Delivery Method Nasal Cannula Room Air Oxygen Flow Rate 1 1 07/18/24 08:02 07/18/24 09:09 Temperature 97.7 F Pulse Rate 73 73 Respiratory Rate 19 Blood Pressure 138/88 138/88 Pulse Oximetry 91 Oxygen Delivery Method Oxygen Flow Rate 0 Fraction of Inspired Oxygen 28 SaO2/FiO2 Ratio 335 Oxygen Delivery Method Room Air Oxygen Flow Rate 0 Narrative Exam Narrative: Pt is resting in hospital bed, WDWN, and is able to talk in full sentences HEENT: AT, NC EOMI, PERRL, No scleral Icterus, Conjunctivae are normal Neck is supple, No TNG, no JVD no Lympadenopathy Chest: Normal Resp effort, Diminished BS At bases, some wheezing today but improved air movement compared to yesterday. Heart: RRR, S1 S2, No M/G/R Ext: no edema Skin: warm and dry, no Cyanosis, no rash , no bruising Neuro : non focal, able to move all extremities, speech is clear, is interactive. Psyche: Normal affect, cooperative, Judgement and insight are good. Objective Labs 07/18/24 06:40 07/18/24 06:40 Labs: Laboratory Results - last 24 hr 07/18/24 06:40 WBC 6.6 RBC 4.23 Hgb 13.4 Hct 39.3 MCV 92.8 MCH 31.7 MCHC 34.2 RDW 14.0 Plt Count 246 Neut % (Auto) 78.3 H Lymph % (Auto) 11.1 L [place] % (Auto) 9.7 Eos % (Auto) 0.5 L Baso % (Auto) 0.4 Neut # (Auto) 5100 Lymph # (Auto) 700 L [place] # (Auto) 600 Eos # (Auto) 0 Baso # (Auto) 0 Sodium 136 L Potassium 3.5 Chloride 99 Carbon Dioxide 31 BUN 17 Creatinine 0.63 Estimated GFR > 60 BUN/Creatinine Ratio 27.0 H Glucose 87 Calcium 8.0 L Magnesium 1.7 PFSH Medical History HTN (hypertension) Hypothyroidism Chronic interstitial lung disease Social History household members: spouse Smoking Status: Never smoker alcohol intake: current Assessment & Plan Assessment & Plan narrative: (1) Acute respiratory failure (possibly on chronic) with hypoxia, possible bacterial pneumonia, POA, improving - patient not on home O2 normally - currently slow improvement in O2 requirements, will try to wean off before discharge home. She is off at rest but may still require some O2 with activity, will trial this today. - restarted course of steroids, antibiotics given appearance of CT imaging to see if any improvement and able to wean from O2. Replaced home Stiolto with duonebs, prn albuterol. Over the past 24 hours since starting she has improved with decreased O2 requirements. Still remains dyspnic today with exertion but improving. - Did diuresis 07/15 given TTE appearance with elevated RVSP. TTE with normal EF. Trial of 20 mg IV lasix with ? improvement. Restarted home HCTZ 05/15. - reduced prednisone from 60 mg to 20 mg with severe anxiety yesterday requiring chest pain evaluation, which was unremarkable. Improved today. Will continue prednisone 20 mg daily. - changed levquin to augmentin on 07/17 for nausea reported 05/15. Will continue augmentin today. (2) Hypokalemia due to excessive renal loss of potassium, present on admission and improving. - K 3.5 so okay today. - restarted home HCTZ as discussed above (3) Hyponatremia, present on admission and active., improved - monitor with resumption of HCTZ. This has been stable. 136 today. (4) Hypochloremia, present on admission and improved. (5) Chronic pulmonary disease labeled COPD by stone spreader operator, present on admission and active, with exacerbation - continue with prednisone as noted above. (6) Hypothyroidism, present on admission and stable. (7) HTN (hypertension), present on admission stable. (8) Hx of PPM - paced on telemetry, stopped telemetry with no events noted for >24 hours. Plan Dispo: Inpatient, likely discharge tomorrow with or without home O2 with activity depending on progress today. Code: Full, surrogate is patient's spouse Time-Based Coding :: [TOTAL MINUTES] spent with patient and on the chart (including review of chart, obtaining history, exam, reviewing outside data, placing orders, documenting exam and treatment plan, and counseling patient) on [DATE].
[2024-07-18] MEDS: MAGNESIUM CHLORIDE 64 MG TABLET 128 MG PO (09:37)
--- NOTE | 2024-07-18 10:41 | CM.DPNOTE ---
DCP note SMASH FIXER reviewed EMR Per provider in morning rounds, still requiring some O2 on activity. will continue to trial/wean today. anticipate dc tomorrow with still potential for new home O2. P: home with OP f/u when medically stable. May need home O2. no CM needs identified at this time. CM team will continue to follow as needed TANA Espitia
--- NOTE | 2024-07-18 16:34 | PC.NURSE ---
Day shift: Pt OOB ambulating the halls with this RN x2 this shift. She denied dizziness or being light-headed. When checking oxygen right after ambulation, patient 85% on room air. After resting, her oxygen returns to 92% in approximately 2 minutes. Notified MD Ramos. Will continue to monitor.
[2024-07-18] MEDS: TRAZODONE 50 MG TABLET PO (20:53)
[2024-07-19 03:00] VITALS: BP 136/74; PULSE 67; RESP 18; TEMP 36; O2SAT 92
[2024-07-19] MEDS: LEVOTHYROXINE 75 MCG TABLET PO (06:16)
[2024-07-19] MEDS: LEVOTHYROXINE 100 MCG TABLET PO (06:16)
[2024-07-19 06:42] LABS: Add Manual Diff / Slide Review NO; Basophils Absolute Auto 0 /uL (0-100); Basophils Percent Auto 0.7 % (0-2); Eosinophils Absolute Auto 100 /uL (0-450); Eosinophils Percent Auto 1.4 % (2-4); Hematocrit 37.5 % (36-46); Hemoglobin 12.9 g/dL (12.0-16.0); Lymphocytes Absolute Auto 800 /uL (1100-4500); Lymphocytes Percent Auto 13.6 % (25-40); Mean Corpuscular HGB Conc 34.3 % (30-36); Mean Corpuscular Hemoglobin 31.6 PG (26-34); Mean Corpuscular Volume 92.3 fL (80-100); Monocytes Absolute Auto 600 /uL (0-900); Monocytes Percent Auto 10.5 % (3-14); Neutrophils Absolute Auto 4100 /uL (1500-7000); Neutrophils Percent Auto 73.8 % (50-75); Platelet Count 227 X10^3/uL (150-400); Red Blood Cell Count 4.07 X10^6/uL (4.0-5.2); Red Cell Distribution Width 13.8 % (11.6-14.8); White Blood Cell Count 5.5 X10^3/uL (4.5-11.0)
[2024-07-19 06:52] LABS: BUN Creatinine Ratio 26.6 (6-22); Blood Urea Nitrogen 17 mg/dL (7-17); Calcium 7.9 mg/dL (8.4-10.2); Carbon Dioxide 30 mmol/L (22-32); Chloride 101 mmol/L (98-107); Estimated Glomerular Filt Rate > 60 mL/min (>60); Glucose 92 mg/dL (80-110); HEMOLYSIS < 15 (0-50); Magnesium 1.7 mg/dL (1.6-2.3); Potassium 3.7 mmol/L (3.4-5.1); Sodium 136 mmol/L (137-145)
[2024-07-19 07:00] VITALS: BP 141/80; PULSE 74; RESP 18; TEMP 36.7; O2SAT 90
[2024-07-19] MEDS: ALBUTEROL/IPRATROPIUM 3 ML AMPUL INH (07:13)
[2024-07-19 07:15] VITALS: PULSE 69; RESP 16; O2SAT 93
--- NOTE | 2024-07-19 07:38 | PM.DS.1 ---
History of Present Illness History of Present Illness Date Patient Seen: 07/19/24 Chief complaint: Having a hard time breathing Narrative: Per admitting provider: From night doctor: Henna Yifanle is an 84 y/o F, with h/o HTN, on HCTZ, Metoprolol and ARB, s'/p Pacemaker for bradycardia, Hypothyroidism, on Levothyroxine 175 mcg daily, Thyroid Cancer s/p Thyroidectomy, and Chronic ? 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 These details are per patient, I an unable to locate these encounters/ pulm clinic visits. 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 Sghe denies h/o WI, CHF, PE, DVT, Stroke, is a life long non smoke Pt came to ED sec to worsening Shortness of breath, beyond her baseline and wheezing , and these symptoms started 4 days ago, as the [place] in her home were getting sanded andc she had dust exposure. She has noted cough productive of white sputum, no hemoptysis.Denies light headedness or Syncope. Pt denies f/c, CP, Abd Pain, N/V, severe headaches, any sick contact or recent travel. 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 EMS noted pt had an O2 sat of 88% on RA, was put on 2 L nc and O2 sats improved to 93%. Her eval in ED: O2 sats 93 % on 2 L , was tachypneic, afebrile, and wheezing EKG : Sinus Rhythm , HR 89, No acute ST- T wave changes noted CXR : no acute changes, no pleural effusion , consolidation or changes of fluid overload Labs Remarkable for K 3.2, Na 133, Cl 96 No Leukocytosis, Troponin < 0.012 Pro BNP up at 1810, though pt not appearing clinically fluid overloaded Given Duoneb Inh treatments , and Solumedrol 125 mg IV Was put on 4 L O2 nc to maintain O2 sats of 94% Pt was given KCL, and referred to Hospitalist team for further care/ observation . Additional information: She lives in [place] with her . [facility] [place]. She was seen him for many years. He feels that her clinical situation is most consistent with COPD, although she was never smoked in the past. She was treated for mycobacterium in the past. She was had progressive dyspnea since admission to the hospital in [place] over April. She did have an oxygen test tomorrow at [facility] as well as a CT scan. We will clarify what these 2 studies are in arranged for them to happen today. She denies URI symptoms including rhinorrhea, or cough. No recent fevers, or chills. Discharge Providers Provider Date of admission: 07/15/24 13:53 Discharge Date: 07/19/24 Primary care physician: Jarocho Mcclendon MD Discharge provider: Fransisco Ramos DO Summary Hospital Course Discharge Diagnosis: (1) Acute respiratory failure (possibly on chronic) with hypoxia, possible bacterial pneumonia, POA, improving (2) Hypokalemia due to excessive renal loss of potassium, present on admission and improving. (3) Hyponatremia, present on admission and active., improved (4) Hypochloremia, present on admission and improved. (5) Chronic pulmonary disease labeled COPD by smooth and burr worker composites, present on admission and active, with exacerbation (6) Hypothyroidism, present on admission and stable. (7) HTN (hypertension), present on admission stable. (8) Hx of PPM Hospital Course: This is an 84-year-old female with a past medical history of COPD, ppm, hypertension, and hypothyroidism who was admitted with a couple days of worsening shortness of breath and admitted with acute respiratory failure with hypoxia. She was initially given steroids, and antibiotics in the emergency room, but the initial admitting provider did not continue these. After no significant improvement antibiotics and steroids were restarted with eventual gradual improvement in her hypoxia. She did develop some severe anxiety with 60 mg of prednisone dosing, which resolved the following day after steroids were reduced to 20 mg. She was finally able to be weaned off of oxygen on the day of discharge, and has pulmonary follow-up on the same day. She was diuresed slightly with furosemide, but this did not make significant improvements and she appeared quite euvolemic. Her home hydrochlorothiazide was restarted and she appeared euvolemic still. The etiology for her hypoxia was likely COPD exacerbation and possible bacterial pneumonia. She will continue on another 4 days of 20 mg of prednisone and Augmentin at discharge. She also reported dramatic improvement in her sleep quality after trialing trazodone here in the hospital and requested this upon discharge. Recommend outpatient follow-up with her primary care provider for ongoing prescriptions. No other changes to her home medications are recommended. Time Spent with Patient Time spent: Greater than 30 minutes Exam Vital Signs (past 8 hours): - 07/19/24 03:00 07/19/24 07:15 Temperature 96.8 F L Pulse Rate 67 69 Respiratory Rate 18 16 Blood Pressure 136/74 Pulse Oximetry 92 93 Oxygen Delivery Method Room Air Oxygen Flow Rate 0 Fraction of Inspired Oxygen 28 SaO2/FiO2 Ratio 335 Oxygen Delivery Method Room Air Oxygen Flow Rate 0 Narrative Exam Narrative: Pt is resting in hospital bed, WDWN, and is able to talk in full sentences HEENT: AT, [place] EOMI, PERRL, No scleral Icterus, Conjunctivae are normal Neck is supple, No TNG, no JVD no Lympadenopathy Chest: Normal Resp effort, Diminished BS At bases, some wheezing today but improved air movement compared to yesterday. Heart: RRR, S1 S2, No M/G/R Ext: no edema Skin: warm and dry, no Cyanosis, no rash , no bruising Neuro : non focal, able to move all extremities, speech is clear, is interactive. Psyche: Normal affect, cooperative, Judgement and insight are good. Objective Labs 07/19/24 06:20 07/19/24 06:20 Labs: Laboratory Results - last 24 hr 07/19/24 06:20 WBC 5.5 RBC 4.07 Hgb 12.9 Hct 37.5 MCV 92.3 MCH 31.6 MCHC 34.3 RDW 13.8 Plt Count 227 Neut % (Auto) 73.8 Lymph % (Auto) 13.6 L [place] % (Auto) 10.5 Eos % (Auto) 1.4 L Baso % (Auto) 0.7 Neut # (Auto) 4100 Lymph # (Auto) 800 L [place] # (Auto) 600 Eos # (Auto) 100 Baso # (Auto) 0 Sodium 136 L Potassium 3.7 Chloride 101 Carbon Dioxide 30 BUN 17 Creatinine 0.64 Estimated GFR > 60 BUN/Creatinine Ratio 26.6 H Glucose 92 Calcium 7.9 L Magnesium 1.7 PFSH Medical History HTN (hypertension) Hypothyroidism Chronic interstitial lung disease Social History household members: spouse Smoking Status: Never smoker alcohol intake: current Discharge Plan Discharge Plan Patient Disposition: Home Provider Discharge Comment: You were admitted to the hospital with shortness of breath, treated for COPD exacerbation and possible pneumonia. Now off oxygen. Continue antibiotics and steroids for another 4 days after discharge. Discuss with smooth and burr worker composites later today any changes to home inhalers. Discharge orders & Medications Prescriptions: New trazodone 50 mg Tablet 50 mg PO BEDTIME 30 Days Qty: 30 0RF prednisone 20 mg Tablet 20 mg PO DAILY 4 Days Qty: 4 0RF amoxicillin-pot clavulanate 875-125 mg Tablet 1 tab PO BID 4 Days Qty: 8 0RF Continued levothyroxine 175 mcg tablet 175 mcg PO DAILY metoprolol succinate 100 mg tablet extended release 24 hr 150 mg PO DAILY irbesartan-hydrochlorothiazide 300-12.5 mg tablet 1 tab PO DAILY albuterol sulfate 90 mcg/actuation HFA aerosol inhaler 2 puff INHALATION 4XD PRN (Reason: wheezing) Stiolto Respimat 2.5-2.5 mcg/actuation mist 2 puff INHALATION DAILY Follow up/Referrals: Jarocho Mcclendon MD [Primary Care Provider] - Diet/Activity/Treatments Diet: Diet as Tolerated and Regular Activity: As tolerated, no restrictions Visit Report/Discharge Packet Instructions: DI for Chronic Obstructive Pulmonary Disease, How to Prevent Falls, Interstitial Lung Disease Stand Alone Forms: Patient Portal/API, Stroke Signs & Symptoms, Patient Portal/API/Survey Discharge Data Primary Care Provider: Jarocho Mcclendon
[2024-07-19] MEDS: ONDANSETRON 4 MG ODT SL (08:20)
[2024-07-19 08:21] VITALS: BP 141/80; PULSE 69
[2024-07-19] MEDS: hydroCHLOROthiazide 25 MG TABLET 12.5 MG PO (08:21)
[2024-07-19] MEDS: ENOXAPARIN 40 MG/0.4 ML SYRINGE SUBCUT (08:21)
[2024-07-19] MEDS: METOPROLOL ER 50 MG TABLET 150 MG PO (08:21)
[2024-07-19] MEDS: predniSONE 20 MG TABLET PO (08:21)
[2024-07-19] MEDS: AMOXICILLIN/CLAV 875/125 MG 1 TAB PO (08:21)
[2024-07-19 08:51] VITALS: PULSE 75
--- NOTE | 2024-07-19 10:47 | CM.DPC ---
DCP Discharge Home Per MD, pt on room air and improved and medically stable to discharge home today and no identified barriers to discharge and no needs at this time. Per RN, pt has been ambulating hallways and plan is home this afternoon with spouse and no concerns noted. Plan: Patient to d/c home today via spouse POV this afternoon and outpt f/u with PCP Hakan after discharge. No further SW needs at this time. TANA Francisco
[2024-07-19 11:00] VITALS: BP 132/73; PULSE 75; RESP 15; TEMP 36.7; O2SAT 91
--- NOTE | 2024-07-19 13:02 | PC.NURSE ---
Day shift: Discharge instructions gone over with patient. All questions answered, patient stated understanding. No PIV access. All belongings with patient. [facility].
== END 2024-07-19 12:40 | disposition home or self-care (01) | DRG 193 ==
LOC: ED 19:05 → AC 20:42
PROVIDERS: Emergency Medicine; Hospitalist; Internal Medicine; Admitting Provider Hospitalist; Emergency Provider Student in an Organized Health Care Education/Training Program; PCP Internal Medicine; Referring Provider Student in an Organized Health Care Education/Training Program; Visit Provider Hospitalist
DX: J15.9 Unspecified bacterial pneumonia (principal); J96.21 Acute and chronic respiratory failure with hypoxia; J44.1 Chronic obstructive pulmonary disease with (acute) exacerbation; E87.1 Hypo-osmolality and hyponatremia; J44.0 Chronic obstructive pulmonary disease with (acute) lower respiratory infection; I10 Essential (primary) hypertension; E89.0 Postprocedural hypothyroidism; E87.6 Hypokalemia; E87.8 Other disorders of electrolyte and fluid balance, not elsewhere classified; F41.9 Anxiety disorder, unspecified; Z79.890 Hormone replacement therapy; Z95.0 Presence of cardiac pacemaker; Z85.850 Personal history of malignant neoplasm of thyroid
CPT/HCPCS: 0241U; 36415; 36600; 71045; 71250; 80048; 80053; 82805; 83605; 83735; 83880; 84484; 85025; 85027; 85610; 87070; 87205; 93005; 93306; 94618; 94640; 94762; 96365; 96375; 99285; G0378; J1650; J1940; J2060; J2405; J2919; J3475; J7613

== ENCOUNTER 2024-12-02 09:13 | Inpatient (IN) | payer MEDICARE, OTHER, SELFPAY ==
[2024-07-13 20:50] VITALS: BMI 23.5
[2024-12-02] VITALS (19 sets, daily range): BP systolic 137–198; BP diastolic 65–96; PULSE 69–94; RESP 16–29; TEMP 36–36.8; O2SAT 86–97; BMI 21.9; BMI 20.9
--- NOTE | 2024-12-02 09:27 | DI.RAD.S_ITS ---
PROCEDURE: XR CHEST 1V INDICATIONS: Shortness of breath TECHNIQUE: One view of the chest was acquired. COMPARISON: [facility], CR, XR CHEST 1V, 07/16/2024, 17:52. FINDINGS: Surgical changes and devices: Pacemaker Lungs and pleura: Lungs are clear. No pleural effusions or pneumothorax. Mediastinum: Mediastinal contours appear normal. Heart size is enlarged. Bones and chest wall: No suspicious bony lesions. Overlying soft tissues appear unremarkable. IMPRESSION: No acute cardiopulmonary abnormality is seen. Dictated by: Gian Duncan M.D. on 12/02/2024 at 9:59 Approved by: Gian Duncan M.D. on 12/02/2024 at 10:03
--- NOTE | 2024-12-02 09:34 | ED_ITS ---
HPI - SOB/Dyspnea General Chief Complaint: Shortness of Breath/Dyspnea Stated Complaint: SOB feels like something is in her lungs Time Seen by Provider: 12/02/24 09:14 Source: patient Mode of arrival: Ambulatory Limitations: no limitations History of Present Illness HPI Narrative: Patient here with complaints of cough cold congestion fever and shortness of breath. Patient has history of COPD, pneumonia, bronchitis. Is not on home oxygen. 86% room air on arrival. Patient thinks she has pneumonia again. Denies any chest pain or limb swelling. He has not taken any breathing treatments this morning. Family at bedside. Patient in no distress. Feeling better with nasal cannula on Related Data Home Medications ?Medication ?Instructions ?Recorded ?Confirmed irbesartan 300 1 tab PO DAILY 07/13/2411/16 mg-hydrochlorothiazide 12.5 mg tablet metoprolol succinate 100 mg 150 mg PO DAILY 07/13/24 0 12/02/24 tablet,extended release 24 hr levothyroxine 175 mcg tablet 150 mcg PO DAILY 10/06/24 12/02/24 Previous Rx's ?Medication ?Instructions ?Recorded albuterol sulfate 2.5 mg/3 mL 2.5 mg (3 mL) inhalation Q6H #360 10/06/24 (0.083 %) solution for nebulization mL albuterol sulfate 90 mcg/actuation 2 puff inhalation 4 XD PRN 10/06/24 aerosol inhaler shortness of breath or wheez ing #54 grams budesonide 160 mcg-glycopyr 9 2 inh inhalation BID #10 .7 grams 10/06/24 mcg-formot 4.8 mcg/actuation HFA inhaler (Breztri Aerosphere) trazodone 50 mg tablet 50 mg PO BEDTIME PRN insomni a #30 11/05/24 tabs amlodipine 5 mg tablet 5 mg PO DAILY #30 tabs 12/07 benzonatate 100 mg capsule 100 mg PO TID PRN Cough #30 caps 12/07/24 levofloxacin 750 mg tablet 750 mg PO DAILY #7 tabs prednisone 50 mg tablet 50 mg PO DAILY #5 tabs 12/07 Allergies Allergy/AdvReac Type Severity Reaction Status Date / Time No Known Drug Allergies Allergy Verified 12/02/24 09:28 Review of Systems Review of Systems Narrative: GENERAL: Negative chills, fatigue, malaise, fever, sweats. HEENT: Negative sinus pain, ear pain, sore throat RESPIRATORY: Positive dyspnea, cough CARDIOVASCULAR: Negative chest pain, palpitations GASTROINTESTINAL: Negative vomiting, nausea, abdominal pain : Negative dysuria, frequency, hematuria MUSCULOSKELETAL: Negative muscle or bony pain SKIN: Negative rash, skin lesions NEUROLOGIC: Negative weakness, numbness ROS Unobtainable: All systems reviewed & are unremarkable except as noted in HPI and below Patient History Medical History HTN (hypertension) Hypothyroidism Chronic interstitial lung disease Social History household members: spouse Smoking Status: Never smoker alcohol intake: current Alcohol type: wine Exam Narrative Exam Narrative: GENERAL: in no distress, not toxic not dyspneic HEAD: Normocephalic. EYES: Pupils equal round ENT: Mucous membranes moist. NECK: Trachea midline. CARDIOVASCULAR: Regular rate and rhythm RESPIRATORY: Clear to auscultation. Breath sounds equal bilaterally. However diminished lung sounds at the bases. Patient is speaking full sentences No wheezes, rales, or rhonchi. GASTROINTESTINAL: Abdomen soft, non-tender EXTREMITIES: No gross deformities. BACK: No flank tenderness. NEURO: AOx4. Clear speech SKIN: Warm and dry PSYCH: Not anxious, is cooperative Initial Vital Signs Initial Vital Signs: Vital Signs Temperature 98.2 F 12/02/24 09:14 Pulse Rate 82 12/02/24 09:14 Respiratory Rate 20 12/02/24 09:14 Blood Pressure 137/65 12/02/24 09:14 Pulse Oximetry 86 L 12/02/24 09:14 Oxygen Delivery Method Room Air 12/02/24 09:14 Course Orders Ordered: Discontinued Medications Acetaminophen (Acetaminophen 325 Mg Tablet) 650 mg PO Q4H PRN PRN Reason: Fever/Mild Pain (1-3) Last Admin: 12/05/24 04:54 Dose: 650 mg Documented By: JUAN PABLO Admin: 12/03/24 22:12 Dose: 650 mg Documented By: Admin: 12/03/24 00:12 Dose: 650 mg Documented By: SR Albuterol (Albuterol 2.5 Mg/3 Ml Neb (Adult)) 2.5 mg INH [id number] PRN PRN Reason: Shortness Of Breath Or Wheezing Last Admin: 12/04/24 21:20 Dose: 2.5 mg Documented By: Admin: 12/04/24 09:30 Dose: 2.5 mg Documented By: Admin: 12/03/24 18:01 Dose: 2.5 mg Documented By: SAT Albuterol/Ipratropium (Albuterol/Ipratropium 3 Ml Ampul) 3 ml INH NOW ONE Stop: 12/02/24 09:34 Last Admin: 12/02/24 09:43 Dose: 3 ml Documented By: BRADY Albuterol/Ipratropium (Albuterol/Ipratropium 3 Ml Ampul) 3 ml INH [id number] [facility] Last Admin: 12/03/24 11:15 Dose: 3 ml Documented By: Admin: 12/03/24 11:09 Dose: Not Given Documented By: Admin: 12/03/24 00:00 Dose: 3 ml Documented By: Admin: 12/02/24 18:09 Dose: 3 ml Documented By: LOLA Albuterol/Ipratropium (Albuterol/Ipratropium 3 Ml Ampul) 3 ml INH RTQ2HR PRN PRN Reason: Shortness Of Breath Or Wheezing Amlodipine Besylate (Amlodipine 5 Mg Tablet) 5 mg PO DAILY [facility] Last Admin: 12/07/24 09:09 Dose: 5 mg Documented By: Admin: 12/06/24 14:28 Dose: 5 mg Documented By: DARIO Amlodipine Besylate (Amlodipine 5 Mg Tablet) 5 mg PO NOW ONE Stop: 12/07/24 11:57 Last Admin: 12/07/24 12:21 Dose: 5 mg Documented By: DARIO Benzocaine (Benzocaine/Menthol 1 Jennifer Pkt) 1 each PO Q1HR PRN PRN Reason: Sore Throat Benzonatate (Benzonatate 100 Mg Capsule) 100 mg PO TID PRN PRN Reason: Cough Last Admin: 12/05/24 22:30 Dose: 100 mg Documented By: Admin: 12/03/24 13:45 Dose: 100 mg Documented By: ROBERT Budesonide (Budesonide 0.5 Mg/2 Ml Neb) 0.5 mg INH RTBID [facility] Last Admin: 12/03/24 11:15 Dose: 0.5 mg Documented By: Admin: 12/02/24 19:28 Dose: 0.5 mg Documented By: MR Diazepam (Diazepam 2 Mg Tablet) 2 mg PO NOW ONE Stop: 12/05/24 20:04 Last Admin: 12/05/24 20:38 Dose: 2 mg Documented By: Diazepam (Diazepam 2 Mg Tablet) 2 mg PO NOW ONE Stop: 12/06/24 20:40 Last Admin: 12/06/24 21:55 Dose: 2 mg Documented By: MS Guaifenesin (Guaifenesin Solution 100 Mg/5 Ml Udc) 200 mg PO Q4HR PRN PRN Reason: Cough Last Admin: 12/04/24 09:51 Dose: 200 mg Documented By: Admin: 12/03/24 13:45 Dose: 200 mg Documented By: ROBERT Hydralazine HCl (Hydralazine 20 Mg/Ml Vial) 10 mg IV Q6HR PRN PRN Reason: Hypertension for SBP > 180 Last Admin: 12/05/24 23:48 Dose: 10 mg Documented By: Admin: 12/05/24 00:58 Dose: 10 mg Documented By: JUAN PABLO Hydrochlorothiazide (Hydrochlorothiazide 25 Mg Tablet) 12.5 mg PO DAILY [facility] Last Admin: 12/07/24 09:08 Dose: 12.5 mg Documented By: Admin: 12/06/24 09:21 Dose: 12.5 mg Documented By: Admin: 12/05/24 09:10 Dose: 12.5 mg Documented By: Admin: 12/04/24 09:56 Dose: 12.5 mg Documented By: Admin: 12/03/24 10:25 Dose: 12.5 mg Documented By: ROBERT Sodium Chloride (Normal Saline 0.9%) 500 mls @ 1,000 mls/hr IV BOLUS ONE Stop: 12/02/24 10:41 Last Infusion: 12/02/24 11:23 Dose: Infused Documented By: Admin: 12/02/24 10:28 Dose: 1,000 mls/hr Documented By: YRIS Ceftriaxone Sodium 1,000 mg/ (Sodium Chloride) 100 mls @ 200 mls/hr IV Q24H [place] Stop: 12/06/24 16:29 Last Infusion: 12/04/24 18:34 Dose: Infused Documented By: Admin: 12/04/24 15:09 Dose: 200 mls/hr Documented By: Infusion: 12/03/24 17:03 Dose: Infused Documented By: Admin: 12/03/24 16:33 Dose: 200 mls/hr Documented By: Infusion: 12/02/24 17:18 Dose: Infused Documented By: Admin: 12/02/24 16:00 Dose: 200 mls/hr Documented By: ELEANOR Azithromycin 500 mg/ Dextrose 250 mls @ 250 mls/hr IV Q24H [place] Stop: 12/04/24 16:59 Last Infusion: 12/04/24 18:34 Dose: Infused Documented By: Admin: 12/04/24 15:22 Dose: 250 mls/hr Documented By: Infusion: 12/03/24 17:33 Dose: Infused Documented By: Admin: 12/03/24 16:33 Dose: 250 mls/hr Documented By: Infusion: 12/02/24 18:48 Dose: Infused Documented By: Admin: 12/02/24 17:20 Dose: 250 mls/hr Documented By: ELEANOR Sodium Chloride (Normal Saline 0.9%) 1,000 mls @ 84 mls/hr IV CONT [facility] Last Infusion: 12/03/24 16:40 Dose: Infused Documented By: Admin: 12/03/24 04:45 Dose: 84 mls/hr Documented By: Infusion: 12/03/24 03:56 Dose: Infused Documented By: Admin: 12/02/24 16:01 Dose: 84 mls/hr Documented By: ELEANOR Magnesium Sulfate (Magnesium Sulfate) 4 gm in 100 mls @ 25 mls/hr IV NOW ONE Stop: 12/04/24 12:44 Last Infusion: 12/04/24 16:18 Dose: Infused Documented By: TR Co-signed By: DANA Admin: 12/04/24 09:57 Dose: 25 mls/hr Documented By: TR Co-signed By: MAMADOU Cefepime HCl 1 gm/ Sodium (Chloride) 100 mls @ 200 mls/hr IV Q12H [facility] Last Admin: 12/07/24 10:54 Dose: 200 mls/hr Documented By: Infusion: 12/06/24 22:26 Dose: Infused Documented By: Admin: 12/06/24 21:56 Dose: 200 mls/hr Documented By: Infusion: 12/06/24 11:18 Dose: Infused Documented By: Admin: 12/06/24 09:21 Dose: 200 mls/hr Documented By: Infusion: 12/05/24 23:01 Dose: Infused Documented By: Admin: 12/05/24 22:31 Dose: 200 mls/hr Documented By: Infusion: 12/05/24 15:23 Dose: Infused Documented By: Admin: 12/05/24 12:13 Dose: 200 mls/hr Documented By: DARIO Levothyroxine Sodium (Levothyroxine 75 Mcg Tablet) 150 mcg PO 0600 [facility] Last Admin: 12/07/24 05:53 Dose: 150 mcg Documented By: Admin: 12/06/24 06:32 Dose: 150 mcg Documented By: Admin: 12/05/24 04:54 Dose: 150 mcg Documented By: JUAN PABLO Admin: 12/04/24 06:19 Dose: 150 mcg Documented By: Admin: 12/03/24 05:37 Dose: 150 mcg Documented By: Losartan Potassium (Losartan 50 Mg Tablet) 100 mg PO DAILY [facility] Last Admin: 12/07/24 09:07 Dose: 100 mg Documented By: Admin: 12/06/24 09:21 Dose: 100 mg Documented By: Admin: 12/05/24 09:10 Dose: 100 mg Documented By: Admin: 12/04/24 09:56 Dose: 100 mg Documented By: Admin: 12/03/24 10:25 Dose: 100 mg Documented By: ROBERT Methylprednisolone (Methylprednisolone 125 Mg/2 Ml Vial) 125 mg IV NOW ONE Stop: 12/02/24 09:34 Last Admin: 12/02/24 09:43 Dose: 125 mg Documented By: YRIS Methylprednisolone (Methylprednisolone 125 Mg/2 Ml Vial) 60 mg IV Q6HR [facility] Last Admin: 12/03/24 20:23 Dose: Not Given Documented By: Admin: 12/03/24 05:38 Dose: 60 mg Documented By: Admin: 12/03/24 00:13 Dose: 60 mg Documented By: Admin: 12/02/24 18:33 Dose: 60 mg Documented By: ELEANOR Methylprednisolone (Methylprednisolone 125 Mg/2 Ml Vial) 60 mg IV Q8HR [facility] Last Admin: 12/04/24 06:19 Dose: 60 mg Documented By: Admin: 12/03/24 22:10 Dose: 60 mg Documented By: Admin: 12/03/24 13:46 Dose: 60 mg Documented By: ROBERT Methylprednisolone (Methylprednisolone 40 Mg/Ml Vial) 40 mg IV Q8HR [facility] Last Admin: 12/07/24 05:53 Dose: 40 mg Documented By: Admin: 12/06/24 21:56 Dose: 40 mg Documented By: Admin: 12/06/24 14:27 Dose: 40 mg Documented By: Admin: 12/06/24 06:32 Dose: 40 mg Documented By: Admin: 12/05/24 22:32 Dose: 40 mg Documented By: Admin: 12/05/24 14:21 Dose: 40 mg Documented By: Admin: 12/05/24 04:54 Dose: 40 mg Documented By: JUAN PABLO Admin: 12/04/24 21:07 Dose: 40 mg Documented By: JUAN PABLO Admin: 12/04/24 14:39 Dose: 40 mg Documented By: TR Metoprolol Succinate (Metoprolol Er 50 Mg Tablet) 150 mg PO DAILY [facility] Last Admin: 12/07/24 09:07 Dose: 150 mg Documented By: Admin: 12/06/24 09:21 Dose: 150 mg Documented By: Admin: 12/05/24 09:10 Dose: 150 mg Documented By: Admin: 12/04/24 09:56 Dose: 150 mg Documented By: Admin: 12/03/24 10:24 Dose: 150 mg Documented By: ROBERT Naloxone HCl (Naloxone 0.4 Mg/Ml Vial) 0.2 mg IV Q2MIN PRN PRN Reason: Opiate Reversal Budesonide-Glycopyr- Formoterol (Breztri Aerosphere 160-9-4.8 Mcg) 2 inhalation INH BID [facility] Last Admin: 12/07/24 09:09 Dose: 2 inhalation Documented By: Admin: 12/06/24 20:48 Dose: 2 inhalation Documented By: Admin: 12/06/24 09:22 Dose: 2 inhalation Documented By: Admin: 12/05/24 21:00 Dose: 2 inhalation Documented By: Admin: 12/05/24 09:07 Dose: 2 inhalation Documented By: Admin: 12/04/24 21:08 Dose: 2 inhalation Documented By: JUAN PABLO Admin: 12/04/24 18:46 Dose: 2 inhalation Documented By: Admin: 12/04/24 09:41 Dose: 2 inhalation Documented By: Admin: 12/03/24 22:15 Dose: 2 inhalation Documented By: Potassium Chloride (Potassium Chloride 20 Meq Tab) 40 meq PO NOW ONE Stop: 12/03/24 07:46 Last Admin: 12/03/24 10:25 Dose: 40 meq Documented By: ROBERT Potassium Chloride (Potassium Chloride 20 Meq Tab) 40 meq PO NOW ONE Stop: 12/03/24 14:24 Last Admin: 12/03/24 16:32 Dose: 40 meq Documented By: ROBERT Potassium Chloride (Potassium Chloride 20 Meq Tab) 40 meq PO NOW ONE Stop: 12/04/24 08:46 Last Admin: 12/04/24 09:55 Dose: 40 meq Documented By: TR Potassium Chloride (Potassium Chloride 20 Meq Tab) 40 meq PO Q6H [facility] Stop: 12/05/24 13:16 Last Admin: 12/05/24 14:21 Dose: 40 meq Documented By: Admin: 12/05/24 09:10 Dose: 40 meq Documented By: DARIO Sodium Chloride (Sodium Chloride 0.9% Flush) 10 ml IV PRN PRN PRN Reason: Flush Last Admin: 12/04/24 06:19 Dose: 10 ml Documented By: BHUPINDER Sodium Chloride (Sodium Chloride 0.9% Flush) 10 ml IV BID [facility] Last Admin: 12/07/24 09:09 Dose: 10 ml Documented By: Admin: 12/06/24 21:55 Dose: 10 ml Documented By: Admin: 12/06/24 09:23 Dose: 10 ml Documented By: Admin: 12/05/24 20:39 Dose: 10 ml Documented By: Admin: 12/05/24 12:13 Dose: Not Given Documented By: Admin: 12/04/24 21:08 Dose: 10 ml Documented By: JUAN PABLO Admin: 12/04/24 09:57 Dose: 10 ml Documented By: TR Trazodone HCl (Trazodone 50 Mg Tablet) 50 mg PO BEDTIME PRN PRN Reason: Insomnia Last Admin: 12/05/24 00:32 Dose: 50 mg Documented By: JUAN PABLO Trazodone HCl (Trazodone 50 Mg Tablet) 100 mg PO BEDTIME PRN PRN Reason: Insomnia Last Admin: 12/06/24 21:55 Dose: 100 mg Documented By: Admin: 12/05/24 23:49 Dose: 100 mg Documented By: Vital Signs Vital signs: Vital Signs - 8 hr 12/02/24 09:14 12/02/24 09:24 12/02/24 09:30 Temperature 98.2 F Pulse Rate 82 83 94 H Respiratory Rate 20 24 Blood Pressure 137/65 Pulse Oximetry 86 L 94 Oxygen Delivery Method Room Air Oxygen Flow Rate 12/02/24 09:30 12/02/24 09:44 Temperature Pulse Rate 77 Respiratory Rate 16 Blood Pressure 164/92 H Pulse Oximetry 95 Oxygen Delivery Method Nasal Cannula Oxygen Flow Rate 2 MDM - SOB/Dyspnea Lab Data 12/04/24 04:50 12/05/24 04:50 Labs: Lab Results 12/02/24 12/02/24 12/02/24 Range/Units 09:30 10:18 10:34 WBC 6.8 (4.5-11.0) X10^3/uL RBC 5.26 H (4.0-5.2) X10^6/uL Hgb 16.4 H (12.0-16.0) g/dL Hct 48.6 H (36-46) % MCV 92.5 (80-100) fL MCH 31.2 (26-34) PG MCHC 33.7 (30-36) % RDW 14.9 H (11.6-14.8) % Plt Count 237 (150-400) X10^3/uL Neut % (Auto) 83.8 H (50-75) % Lymph % (Auto) 5.2 L (25-40) % [place] % (Auto) 8.8 (3-14) % Eos % (Auto) 1.4 L (2-4) % Baso % (Auto) 0.8 (0-2) % Neut # (Auto) 5700 (9693-9250) /uL Lymph # (Auto) 400 L (9390-2606) /uL [place] # (Auto) 600 (0-900) /uL Eos # (Auto) 100 (0-450) /uL Baso # (Auto) 100 (0-100) /uL PT 12.8 H (9.4-12.5) SECONDS INR 1.1 (0.9-1.3) ABG Sample Site Left brachial ABG pH 7.45 (7.35-7.45) ABG pCO2 51.2 H (35-45) mmHg ABG pO2 64 L (80-100) mmHg ABG HCO3 35 H (23-27) mmol/L ABG Total CO2 34 H (23-27) mmol/L ABG O2 Saturation 93 L (95-100) % ABG Base Excess 9.2 H (-2-3) mmol/L Harvinder Test N/a VBG pH 7.38 (7.33-7.43) VBG pCO2 61.7 H (45-50) mmHg VBG pO2 23 L (35-45) mmHg VBG HCO3 37 H (24-28) mmol/L VBG Total CO2 35 H (24-29) mmol/L VBG O2 Saturation 37 L (70-75) % VBG Base Excess 8.9 H (0-4) mmol/L O2 Delivery Device Cannula FiO2 % 28.0 % 28.0 % % Sodium 139 (137-145) mmol/L Potassium 3.0 L (3.4-5.1) mmol/L Chloride 96 L (98-107) mmol/L Carbon Dioxide 35 H (22-32) mmol/L BUN 13 (7-17) mg/dL Creatinine 0.80 (0.52-1.04) mg/dL Estimated GFR > 60 (>60) mL/min BUN/Creatinine Ratio 16.3 (6-22) Glucose 130 H (70-99) mg/dL Lactate 2.1 (0.7-2.1) mmol/L Calcium 9.4 (8.4-10.2) mg/dL Total Bilirubin 0.9 (0.2-1.3) mg/dL AST 39 H (14-36) IU/L ALT 27 (<35) IU/L Alkaline Phosphatase 98 (38-126) U/L Troponin I < 0.012 (0.01-0.034) ng/mL NT-Pro-B Natriuret Pep 3680 H (<450) pg/mL Total Protein 7.8 (6.3-8.2) g/dL Albumin 4.6 (3.5-5.0) g/dL Globulin 3.2 (1.7-4.1) g/dL Albumin/Globulin Ratio 1.4 (1.0-2.8) Chlamy pneumoniae PCR Not detected (Not Detect) Adenovirus (PCR) Not detected (Not Detect) B. pertussis DNA (PCR) Not detected (Not Detect) B.parapertussis DNA PCR Not detected (Not Detecte) Coronavirus OC43 (PCR) Not detected (Not Detect) Coronavirus HKU1 (PCR) Not detected (Not Detect) Coronavirus 229E (PCR) Not detected (Not Detect) SARS-CoV-2 (PCR) Not detected (Not Detecte) Coronavirus NL63 (PCR) Not detected (Not Detect) Human Metapneumovir PCR Not detected (Not Detect) Influenza Type A (PCR) Not detected (Not Detect) Influenza Type B (PCR) Not detected (Not Detect) M. pneumoniae (PCR) Not detected (Not Detect) Parainfluenza 1 (PCR) Not detected (Not Detect) Parainfluenza 2 (PCR) Not detected (Not Detect) Parainfluenza 3 (PCR) Detected H (Not Detect) Parainfluenza 4 (PCR) Not detected (Not Detect) RSV (PCR) Not detected (Not Detect) Entero/Rhino (PCR) Not detected (Not Detect) 12/02/24 Range/Units 12:02 WBC (4.5-11.0) X10^3/uL RBC (4.0-5.2) X10^6/uL Hgb (12.0-16.0) g/dL Hct (36-46) % MCV (80-100) fL MCH (26-34) PG MCHC (30-36) % RDW (11.6-14.8) % Plt Count (150-400) X10^3/uL Neut % (Auto) (50-75) % Lymph % (Auto) (25-40) % [place] % (Auto) (3-14) % Eos % (Auto) (2-4) % Baso % (Auto) (0-2) % Neut # (Auto) (0447-8421) /uL Lymph # (Auto) (4610-2809) /uL [place] # (Auto) (0-900) /uL Eos # (Auto) (0-450) /uL Baso # (Auto) (0-100) /uL PT (9.4-12.5) SECONDS INR (0.9-1.3) ABG Sample Site ABG pH (7.35-7.45) ABG pCO2 (35-45) mmHg ABG pO2 (80-100) mmHg ABG HCO3 (23-27) mmol/L ABG Total CO2 (23-27) mmol/L ABG O2 Saturation (95-100) % ABG Base Excess (-2-3) mmol/L Harvinder Test VBG pH (7.33-7.43) VBG pCO2 (45-50) mmHg VBG pO2 (35-45) mmHg VBG HCO3 (24-28) mmol/L VBG Total CO2 (24-29) mmol/L VBG O2 Saturation (70-75) % VBG Base Excess (0-4) mmol/L O2 Delivery Device FiO2 % % Sodium (137-145) mmol/L Potassium (3.4-5.1) mmol/L Chloride (98-107) mmol/L Carbon Dioxide (22-32) mmol/L BUN (7-17) mg/dL Creatinine (0.52-1.04) mg/dL Estimated GFR (>60) mL/min BUN/Creatinine Ratio (6-22) Glucose (70-99) mg/dL Lactate 1.7 (0.7-2.1) mmol/L Calcium (8.4-10.2) mg/dL Total Bilirubin (0.2-1.3) mg/dL AST (14-36) IU/L ALT (<35) IU/L Alkaline Phosphatase (38-126) U/L Troponin I (0.01-0.034) ng/mL NT-Pro-B Natriuret Pep (<450) pg/mL Total Protein (6.3-8.2) g/dL Albumin (3.5-5.0) g/dL Globulin (1.7-4.1) g/dL Albumin/Globulin Ratio (1.0-2.8) Chlamy pneumoniae PCR (Not Detect) Adenovirus (PCR) (Not Detect) B. pertussis DNA (PCR) (Not Detect) B.parapertussis DNA PCR (Not Detecte) Coronavirus OC43 (PCR) (Not Detect) Coronavirus HKU1 (PCR) (Not Detect) Coronavirus 229E (PCR) (Not Detect) SARS-CoV-2 (PCR) (Not Detecte) Coronavirus NL63 (PCR) (Not Detect) Human Metapneumovir PCR (Not Detect) Influenza Type A (PCR) (Not Detect) Influenza Type B (PCR) (Not Detect) M. pneumoniae (PCR) (Not Detect) Parainfluenza 1 (PCR) (Not Detect) Parainfluenza 2 (PCR) (Not Detect) Parainfluenza 3 (PCR) (Not Detect) Parainfluenza 4 (PCR) (Not Detect) RSV (PCR) (Not Detect) Entero/Rhino (PCR) (Not Detect) Imaging Data CT scan - chest: Radiologist's Impression: [place] [address] CT Scan Report Signed Patient: Henna Darden MR#: [id number] : 1940 Acct:[id number] Age/Sex: 84 / F Date of Service: 12/02/24 Loc: ED Accession Number: [id number] Procedure: CT angio chest PE protocol Ordering Provider: Jarocho Hawthorne MD PROCEDURE: CT ANGIO CHEST PE PROTOCOL INDICATIONS: Dyspnea TECHNIQUE: After the administration of intravenous contrast, 2 mm thick sections acquired from the pulmonary apices to the posterior costophrenic angles. 3-dimensional maximum intensity projection (MIP) coronal and sagittal reformats were then acquired through the thorax. For radiation dose reduction, the following was used: automated exposure control, adjustment of mA and/or kV according to patient size. COMPARISON: [facility], CT, CT CHEST WO CON, 07/14/2024, 11:37. FINDINGS: Image quality: Diagnostic. Pulmonary arteries: Pulmonary arteries are normal in size, and demonstrate no intraluminal filling defects to suggest central pulmonary embolism. Lower Neck: No enlarged lymph nodes. Thyroid: Apparent prior thyroidectomy bilaterally. Axillae: No enlarged lymph nodes. Chest Wall: Unremarkable. Bones: Unremarkable. Lungs and Pleura: No pneumothorax or pleural effusions. No new consolidation or suspicious nodules. Previously present patchy small areas of alveolar airspace disease, mild patchy bronchiectasis, and stable scattered foci of nodular radiodensities within the lung parenchyma all appear inflammatory in origin. Heart: Heart size is normal. No pericardial effusion. Thoracic Vessels: No aortic aneurysm. Mediastinum and [place]: No enlarged lymph nodes. Esophagus: No wall thickening. No hiatal hernia. Upper Abdomen: Visualized upper abdomen solid organs and bowel loops appear normal. IMPRESSION: No pulmonary embolus. No acute cardiopulmonary process. Patchy mild bilateral alveolar airspace disease, nodular scattered radiodensities within the lung parenchyma, and patchy bronchiectasis all appear chronic. Presumed chronic lung disease, etiology uncertain. Dictated by: Luis George M.D. on 12/02/2024 at 11:38 Approved by: Luis George M.D. on 12/02/2024 at 11:43 Chest x-ray: Radiologist's Impression: [address] [id number] XRay Report Signed Patient: Henna Darden MR#: [id number] : 1940 Acct:[id number] Age/Sex: 84 / F Date of Service: 12/02/24 Loc: ED Accession Number: [id number] Procedure: XR chest 1V Ordering Provider: Jarocho Hawthorne MD PROCEDURE: XR CHEST 1V INDICATIONS: Shortness of breath TECHNIQUE: One view of the chest was acquired. COMPARISON: [facility], , XR CHEST 1V, 07/16/2024, 17:52. FINDINGS: Surgical changes and devices: Pacemaker Lungs and pleura: Lungs are clear. No pleural effusions or pneumothorax. Mediastinum: Mediastinal contours appear normal. Heart size is enlarged. Bones and chest wall: No suspicious bony lesions. Overlying soft tissues appear unremarkable. IMPRESSION: No acute cardiopulmonary abnormality is seen. Dictated by: Gian Duncan M.D. on 12/02/2024 at 9:59 Approved by: Gian Duncna M.D. on 12/02/2024 at 10:03 [facility] [place] Narrative Medical decision making narrative: Patient here with complaints of cough cold congestion fever and shortness of breath. Patient has history of COPD, pneumonia, bronchitis. Is not on home oxygen. 86% room air on arrival. Patient thinks she has pneumonia again. Denies any chest pain or limb swelling. He has not taken any breathing treatments this morning. Family at bedside. Patient in no distress. Feeling better with nasal cannula on After history and exam, CBC CMP EKG chest x-ray respiratory panel DuoNeb Solu- Medrol [facility] [place] Medical records reviewed: ER visit here for admission for COPD July 13, 2024 Differential considered: Includes but not limited to pneumonia COPD asthma bronchitis Lab Test results independently reviewed as above. Pertinent findings: WBC 6.8 hemoglobin 16.4 respiratory panel positive parainfluenza virus INR 1.1 ABG 7.45, pCO2 51 PO2 64 sodium 139 potassium 3.0 BUN 13 creatinine 0.8 troponin less than 0.012 BNP nonspecific 3680 reviewed EKG sinus rhythm rate [address] elevation or depression Imaging studies independently reviewed: CT chest no pulmonary embolism. Chest x-ray no acute finding Consultations: I spoke with Cardiology dr griffiths, he reviewed the EKGs. Not AFib. P waves present. 12:[address] Escobar, hospitalist, will admit patient Re-evaluations: 11:57 a.m.. Reviewed results with patient. Still requiring supplemental oxygen. Will admit her for COPD exacerbation with viral infection. Viral bronchitis Discussion: Appropriate for admission for COPD exacerbation requiring supplemental oxygen Diagnosis: COPD exacerbation, viral bronchitis Discharge Plan Departure Patient Disposition: Admitted as Observation Clinical Impression: COPD exacerbation, Acute bronchitis due to parainfluenza virus Admit Date/Time: 12/02/24 12:06 Admit Provider: Harvinder Escobar
[2024-12-02] MEDS: ALBUTEROL/IPRATROPIUM 3 ML AMPUL INH ×2 (09:43→18:09)
[2024-12-02 09:46] LABS: INR 1.1 (0.9-1.3); Prothrombin Time 12.8 SECONDS (9.4-12.5)
--- NOTE | 2024-12-02 09:47 | EKG_ITS ---
[address] [address] Test Date: 2024-12-02 Pat Name: Henna Darden Department: Room: Gender: Female Director Of Patient Care: HERI : 1940 Requested By: Order Number: [id number] Reading MD: Harvinder Escobar Measurements Intervals Lavinia Rate: 86 P: VT: QRS: -38 QRSD: 102 T: -36 QT: 392 QTc: 469 Interpretive Statements Atrial fibrillation Left axis deviation Moderate voltage criteria for LVH, may be normal variant ( R in aVL , [place] product ) ST & T wave abnormality, consider lateral ischemia Noisy baseline Electronically Signed On 12-02-2024 18:08:03 PDT by Harvinder Escobar
[2024-12-02 09:50] LABS: Add Manual Diff / Slide Review NO; Hematocrit 48.6 % (36-46); Hemoglobin 16.4 g/dL (12.0-16.0); Lymphocytes Absolute Auto 400 /uL (1100-4500); Mean Corpuscular HGB Conc 33.7 % (30-36); Mean Corpuscular Hemoglobin 31.2 PG (26-34); Mean Corpuscular Volume 92.5 fL (80-100); Platelet Count 237 X10^3/uL (150-400)
[2024-12-02 09:51] LABS: Alanine Aminotransferase 27 IU/L (<35); Albumin 4.6 g/dL (3.5-5.0); Albumin Globulin Ratio 1.4 (1.0-2.8); Alkaline Phosphatase 98 U/L (38-126); Blood Urea Nitrogen 13 mg/dL (7-17); Calcium 9.4 mg/dL (8.4-10.2); Carbon Dioxide 35 mmol/L (22-32); Chloride 96 mmol/L (98-107); Estimated Glomerular Filt Rate > 60 mL/min (>60); Globulin 3.2 g/dL (1.7-4.1); Glucose 130 mg/dL (70-99); HEMOLYSIS < 15 (0-50); Potassium 3.0 mmol/L (3.4-5.1); Sodium 139 mmol/L (137-145); Total Protein 7.8 g/dL (6.3-8.2)
[2024-12-02 09:52] LABS: Lactate (Lactic Acid) 2.1 mmol/L (0.7-2.1)
[2024-12-02 10:03] LABS: NT-proBNP (BNP-Adult 18+) 3680 pg/mL (<450); Troponin I < 0.012 ng/mL (0.01-0.034)
--- NOTE | 2024-12-02 10:12 | DI.CT.S_ITS ---
PROCEDURE: CT ANGIO CHEST PE PROTOCOL INDICATIONS: Dyspnea TECHNIQUE: After the administration of intravenous contrast, 2 mm thick sections acquired from the pulmonary apices to the posterior costophrenic angles. 3-dimensional maximum intensity projection (MIP) coronal and sagittal reformats were then acquired through the thorax. For radiation dose reduction, the following was used: automated exposure control, adjustment of mA and/or kV according to patient size. COMPARISON: [facility], CT, CT CHEST WO [facility], 07/14/2024, 11:37. FINDINGS: Image quality: Diagnostic. Pulmonary arteries: Pulmonary arteries are normal in size, and demonstrate no intraluminal filling defects to suggest central pulmonary embolism. Lower Neck: No enlarged lymph nodes. Thyroid: Apparent prior thyroidectomy bilaterally. Axillae: No enlarged lymph nodes. Chest Wall: Unremarkable. Bones: Unremarkable. Lungs and Pleura: No pneumothorax or pleural effusions. No new consolidation or suspicious nodules. Previously present patchy small areas of alveolar airspace disease, mild patchy bronchiectasis, and stable scattered foci of nodular radiodensities within the lung parenchyma all appear inflammatory in origin. Heart: Heart size is normal. No pericardial effusion. Thoracic Vessels: No aortic aneurysm. Mediastinum and Kan[place]: No enlarged lymph nodes. Esophagus: No wall thickening. No hiatal hernia. Upper Abdomen: Visualized upper abdomen solid organs and bowel loops appear normal. IMPRESSION: No pulmonary embolus. No acute cardiopulmonary process. Patchy mild bilateral alveolar airspace disease, nodular scattered radiodensities within the lung parenchyma, and patchy bronchiectasis all appear chronic. Presumed chronic lung disease, etiology uncertain. Dictated by: Luis George M.D. on 12/02/2024 at 11:38 Approved by: Luis George M.D. on 12/02/2024 at 11:43
[2024-12-02 10:23] LABS: Base Excess VBG 8.9 mmol/L (0-4); HCO3 VBG 37 mmol/L (24-28); Oxygen Saturation VBG 37 % (70-75); PCO2 VBG 61.7 mmHg (45-50); PO2 VBG 23 mmHg (35-45); Total CO2 VBG 35 mmol/L (24-29); pH VBG 7.38 (7.33-7.43)
[2024-12-02] MEDS: SODIUM CHLORIDE 0.9% 500 ML 1000 ML IV (10:28)
[2024-12-02 10:29] LABS: Coronavirus NL 63 Not Detected (Not Detect); SARS- CoV-2 Not Detected (Not Detecte)
[2024-12-02 10:41] LABS: Blood Gas Collection Site Left Brachial; Delivery System Cannula; HCO3 ABG 35 mmol/L (23-27); Oxygen Saturation ABG 93 % (95-100); PCO2 ABG 51.2 mmHg (35-45); PO2 ABG 64 mmHg (80-100); TCO2 ABG 34 mmol/L (23-27)
[2024-12-02 11:11] LABS: Reflexed Lactate in 2 Hours Y
[2024-12-02 12:24] LABS: Lactate 2HR (Lactic Acid Rflx) 1.7 mmol/L (0.7-2.1)
--- NOTE | 2024-12-02 12:30 | CM.DANOTE ---
ED SUPERVISOR GRAPHITE DCP Assessment Note: Pt is a 84yo female, resident of [place], is admitted for bronchitis, + parainfluenza. Pt lives in a house with her spouse, her daughter (Violeta) lives on the same property. Pt's Primary Care Provider is Dr. Sita Shepherd MD ([facility]) and insurance is Medicare and [employer]. Car Changer: Dr. Terence Cox MD ([facility]). Wall Steamer: Tanner Burnham MD ([facility]). Reviewed chart and discussed with multidisciplinary team pt's medical status and initial discharge needs. Per ED Provider, pt to be admitted to Acute Care for supplemental O2 and abx. ED SUPERVISOR GRAPHITE met w/patient at bedside; introduced self and role. Patient was found in bed, alert and oriented, cooperative with assessment. Pt confirmed living situation and good support in family. Pt expressed preference in discharge home when back on baseline O2 (Room Air). Pt states she has no hx of home health or SNF Rehab. Pt was admitted in 07/2024 for five days for similar symptoms, was discharged home on room air with daughter transport. Plan: Anticipating dc home with family (daughter to transport) when medically cleared. CM team will follow closely for coordination of discharge plans. Adore Talley [facility] Discharge Planning/Care Management CM Discharge Assessment Start: 12/02/24 12:27 Freq: Status: Active Protocol: Document 12/02/24 12:27 MW (Rec: 12/02/24 12:29 MW [id number]) Discharge Planning Assessment Assigned Discharge TANA [employer] Truck [employer] DPOA/Assigned Gall[place], Spouse Designee Name Contact Information [phone] Advance Directives? Yes Advance Directives No on File History Provided By Patient,Medical Record Has Patient been No admitted in last 30 days? Prior Living House Arrangements Household Members spouse Comment Daughter lives on same property. Type of Drives own vehicle transporation used prior to admit Independent with ADL Yes 's Is patient alert and Yes oriented? Caregiver for No Another DME Already Rented / Nebulizer Owned Patient/Family Home with Home Health Preference Barriers to No Discharge Discharge Plan Home Referrals Initiated None needed Review Status In Process Please Provide Date 12/02/24 Initial DC Assessment Was Performed Next Review Type Continued Stay Review
--- NOTE | 2024-12-02 13:21 | P.HP_ITS ---
History of Present Illness History of Present Illness Date Patient Seen: 12/02/24 Time Patient Seen: 15:52 Chief complaint: SOB feels like something is in her lungs Narrative: She was a an 84-year-old female with a history of COPD and asthma who presents with 3 days' history of cough and increased dyspnea. She was followed by Pulmonary at [facility]. In the ED, she was found to be tight and had a clear chest x-ray with a positive respiratory PCR for parainfluenza virus. She was had a productive cough. She also notes a 30 lb weight loss over the last 2- 3 months. She was recently been started on a new inhaler from Jessenia Dyson. He feels that she was a severe persistent non eosinophilic asthma. She lives locally. She was a nonsmoker. She smoked for several years in college only. No fevers, or chills. No diarrhea. [facility] Medical History HTN (hypertension) Hypothyroidism Chronic interstitial lung disease Social History household members: spouse Smoking Status: Never smoker alcohol intake: current Meds Home Medications and Allergies Home Medications ?Medication ?Instructions ?Recorded ?Confirmed ?Type irbesartan 300 1 tab PO DAILY 07/13/2411/16 History mg-hydrochlorothiazide 12.5 mg tablet metoprolol succinate 100 mg 150 mg PO DAILY 07/13/24 0 12/02/24 History tablet,extended release 24 hr albuterol sulfate 2.5 mg/3 mL 2.5 mg (3 mL) inhalation Q6H #360 10/06/24 12/02/24 Rx (0.083 %) solution for nebulization mL albuterol sulfate 90 mcg/actuation 2 puff inhalation 4 XD PRN 10/06/24 12/02/24 Rx aerosol inhaler shortness of breath or wheez ing #54 grams budesonide 160 mcg-glycopyr 9 2 inh inhalation BID #10 .7 grams 10/06/24 12/02/24 Rx mcg-formot 4.8 mcg/actuation HFA inhaler (Breztri Aerosphere) levothyroxine 175 mcg tablet 150 mcg PO DAILY 10/06/24 12/02/24 History trazodone 50 mg tablet 50 mg PO BEDTIME PRN insomni a #30 11/05/24 12/02/24 Rx tabs Allergies Allergy/AdvReac Type Severity Reaction Status Date / Time No Known Drug Allergies Allergy Verified 12/02/24 09:28 Review of Systems Review of Systems Narrative: All else reviewed and otherwise unremarkable except as noted in the history and physical. Exam Vital Signs (past 8 hours): - 12/02/24 09:14 12/02/24 09:24 12/02/24 09:30 Temperature 98.2 F Pulse Rate 82 83 94 H Respiratory Rate 20 24 Blood Pressure 137/65 Pulse Oximetry 86 L 94 Oxygen Delivery Method Room Air Oxygen Flow Rate 12/02/24 09:30 12/02/24 09:44 12/02/24 10:00 Temperature Pulse Rate 77 79 Respiratory Rate 16 24 Blood Pressure 164/92 H Pulse Oximetry 95 94 Oxygen Delivery Method Nasal Cannula Oxygen Flow Rate 2 12/02/24 10:00 12/02/24 10:30 12/02/24 11:02 Temperature Pulse Rate 77 80 Respiratory Rate Blood Pressure 197/84 H Pulse Oximetry 91 95 Oxygen Delivery Method Oxygen Flow Rate 12/02/24 11:04 12/02/24 11:04 12/02/24 11:19 Temperature Pulse Rate 83 79 Respiratory Rate 20 29 H Blood Pressure 198/93 H Pulse Oximetry 95 95 Oxygen Delivery Method Nasal Cannula Oxygen Flow Rate 1 12/02/24 11:19 12/02/24 11:30 12/02/24 11:30 Temperature Pulse Rate 76 Respiratory Rate 22 Blood Pressure 182/88 H 168/93 H Pulse Oximetry 92 Oxygen Delivery Method Oxygen Flow Rate 12/02/24 12:00 12/02/24 12:30 12/02/24 13:00 Temperature Pulse Rate 76 77 75 Respiratory Rate 24 20 22 Blood Pressure Pulse Oximetry 92 92 93 Oxygen Delivery Method Nasal Cannula Oxygen Flow Rate 1 Oxygen Delivery Method Nasal Cannula Oxygen Flow Rate 1 Narrative Exam Narrative: NAD, alert and oriented, fluent speech, calm. She appears to be underweight. Normocephalic skull, EOMI, anicteric sclera, symmetric pupils. Oropharynx unremarkable, no droop. Neck supple, midline trachea, no adenopathy. Lungs with diminished breath sounds and some prolonged expiratory phase. Heart regular, no murmur gallop or rub. Abdomen is soft, non distended and non tender. Extremities are free of edema. Skin is free of rash or lesions. Joints are not swollen or deformed. Judgment appears to be normal. Objective ECG Impression: Intervals [place] Rate: 86 P: [place]: QRS: -38 QRSD: 102 T: -36 QT: 392 QTc: 469 Interpretive Statements Atrial fibrillation Left axis deviation Moderate voltage criteria for LVH, may be normal variant ( R in aVL , [place] product ) ST & T wave abnormality, consider lateral ischemia Imaging Multiple studies:: Radiologist's impression: Chest x-ray: No acute cardiopulmonary abnormality is seen. Chest CTA: No pulmonary embolus. No acute cardiopulmonary process. Patchy mild bilateral alveolar airspace disease, nodular scattered radiodensities within the lung parenchyma, and patchy bronchiectasis all appear chronic. Presumed chronic lung disease, etiology uncertain. Labs 12/02/24 09:30 12/02/24 09:30 Labs: Laboratory Results - last 24 hr 12/02/24 12/02/24 12/02/24 09:30 10:18 10:34 WBC 6.8 RBC 5.26 H Hgb 16.4 H Hct 48.6 H MCV 92.5 MCH 31.2 MCHC 33.7 RDW 14.9 H Plt Count 237 Neut % (Auto) 83.8 H Lymph % (Auto) 5.2 L Mckean % (Auto) 8.8 Eos % (Auto) 1.4 L Baso % (Auto) 0.8 Neut # (Auto) 5700 Lymph # (Auto) 400 L Mckean # (Auto) 600 Eos # (Auto) 100 Baso # (Auto) 100 PT 12.8 H INR 1.1 ABG Sample Site Left brachial ABG pH 7.45 ABG pCO2 51.2 H ABG pO2 64 L ABG HCO3 35 H ABG Total CO2 34 H ABG O2 Saturation 93 L ABG Base Excess 9.2 H Harvinder Test N/a VBG pH 7.38 VBG pCO2 61.7 H VBG pO2 23 L VBG HCO3 37 H VBG Total CO2 35 H VBG O2 Saturation 37 L VBG Base Excess 8.9 H O2 Delivery Device Cannula FiO2 % 28.0 % 28.0 % Sodium 139 Potassium 3.0 L Chloride 96 L Carbon Dioxide 35 H BUN 13 Creatinine 0.80 Estimated GFR > 60 BUN/Creatinine Ratio 16.3 Glucose 130 H Lactate 2.1 Calcium 9.4 Total Bilirubin 0.9 AST 39 H ALT 27 Alkaline Phosphatase 98 Troponin I < 0.012 NT-Pro-B Natriuret Pep 3680 H Total Protein 7.8 Albumin 4.6 Globulin 3.2 Albumin/Globulin Ratio 1.4 Chlamy pneumoniae PCR Not detected Adenovirus (PCR) Not detected B. pertussis DNA (PCR) Not detected B.parapertussis DNA PCR Not detected Coronavirus OC43 (PCR) Not detected Coronavirus HKU1 (PCR) Not detected Coronavirus 229E (PCR) Not detected SARS-CoV-2 (PCR) Not detected Coronavirus NL63 (PCR) Not detected Human Metapneumovir PCR Not detected Influenza Type A (PCR) Not detected Influenza Type B (PCR) Not detected M. pneumoniae (PCR) Not detected Parainfluenza 1 (PCR) Not detected Parainfluenza 2 (PCR) Not detected Parainfluenza 3 (PCR) Detected H Parainfluenza 4 (PCR) Not detected RSV (PCR) Not detected Entero/Rhino (PCR) Not detected 12/02/24 12:02 WBC RBC Hgb Hct MCV MCH MCHC RDW Plt Count Neut % (Auto) Lymph % (Auto) Mcke[place] % (Auto) Eos % (Auto) Baso % (Auto) Neut # (Auto) Lymph # (Auto) Mckean # (Auto) Eos # (Auto) Baso # (Auto) PT INR ABG Sample Site ABG pH ABG pCO2 ABG pO2 ABG HCO3 ABG Total CO2 ABG O2 Saturation ABG Base Excess Harvinder Test VBG pH VBG pCO2 VBG pO2 VBG HCO3 VBG Total CO2 VBG O2 Saturation VBG Base Excess O2 Delivery Device FiO2 % Sodium Potassium Chloride Carbon Dioxide BUN Creatinine Estimated GFR BUN/Creatinine Ratio Glucose Lactate 1.7 Calcium Total Bilirubin AST ALT Alkaline Phosphatase Troponin I NT-Pro-B Natriuret Pep Total Protein Albumin Globulin Albumin/Globulin Ratio Chlamy pneumoniae PCR Adenovirus (PCR) B. pertussis DNA (PCR) B.parapertussis DNA PCR Coronavirus OC43 (PCR) Coronavirus HKU1 (PCR) Coronavirus 229E (PCR) SARS-CoV-2 (PCR) Coronavirus NL63 (PCR) Human Metapneumovir PCR Influenza Type A (PCR) Influenza Type B (PCR) M. pneumoniae (PCR) Parainfluenza 1 (PCR) Parainfluenza 2 (PCR) Parainfluenza 3 (PCR) Parainfluenza 4 (PCR) RSV (PCR) Entero/Rhino (PCR) Assessment & Plan Assessment & Plan narrative: 1. Parainfluenza virus pneumonia, present on admission and active. 2. Possible bacterial pneumonia, present on admission and active. 3. Asthma exacerbation, present on admission and active. Plan: -IV steroids with Medrol 60 q.6. -continue chronic triple therapy inhaler. -albuterol nebulizers as needed -empiric antibiotics with ceftriaxone and azithromycin. -we will discuss with her primary medical bill processor. Full resuscitation Anticipate 1 night in the hospital, supports observation status. Time-Based Coding :: 35 min spent with patient and on the chart (including review of chart, obtaining history, exam, reviewing outside data, placing orders, documenting exam and treatment plan, and counseling patient) on 12/02. Quality MIPS - Admit I confirm the patient?s Advance Care Plan is present, Code status is documented, Surrogate decision maker is in patient?s record [If Yes, STOP here]: Yes MIPS - Meds 'Current medications' to include all prescriptions, [id number] products, herbals, cannabis/cannabidiol products, and vitamin/mineral/dietary (nutritional) supplements. I have utilized all available resources to obtain, update, or review the patient?s current medications. [If Yes, STOP here]: Yes
[2024-12-02] MEDS: SODIUM CHLORIDE 0.9% 1,000 ML 84 ML IV (16:01)
[2024-12-02] MEDS: AZITHROMYCIN 500 MG in DEXTROSE 5% IN WATER 250 ML 250 MG IV (17:20)
[2024-12-02] MEDS: BUDESONIDE 0.5 MG/2 ML NEB INH (19:28)
[2024-12-03] VITALS (8 sets, daily range): BP systolic 148–171; BP diastolic 81–104; PULSE 70–92; RESP 16–24; TEMP 35.4–36.4; O2SAT 86–99
[2024-12-03] MEDS: ACETAMINOPHEN 325 MG TABLET 650 MG PO ×2 (00:12→22:12)
[2024-12-03] MEDS: SODIUM CHLORIDE 0.9% 1,000 ML 84 ML IV (04:45)
[2024-12-03] MEDS: LEVOTHYROXINE 75 MCG TABLET 150 MCG PO (05:37)
[2024-12-03 10:04] LABS: Add Manual Diff / Slide Review NO; Hematocrit 43.0 % (36-46); Hemoglobin 14.9 g/dL (12.0-16.0); Lymphocytes Absolute Auto 200 /uL (1100-4500); Mean Corpuscular HGB Conc 34.6 % (30-36); Mean Corpuscular Hemoglobin 31.6 PG (26-34); Mean Corpuscular Volume 91.4 fL (80-100); Platelet Count 210 X10^3/uL (150-400)
[2024-12-03 10:20] LABS: Blood Urea Nitrogen 13 mg/dL (7-17); Calcium 8.1 mg/dL (8.4-10.2); Carbon Dioxide 29 mmol/L (22-32); Chloride 97 mmol/L (98-107); Estimated Glomerular Filt Rate > 60 mL/min (>60); Glucose 216 mg/dL (70-99); HEMOLYSIS 19 (0-50); Potassium 3.1 mmol/L (3.4-5.1); Sodium 137 mmol/L (137-145)
[2024-12-03] MEDS: METOPROLOL ER 50 MG TABLET 150 MG PO (10:24)
[2024-12-03] MEDS: POTASSIUM CHLORIDE 20 MEQ TAB 40 MEQ PO ×2 (10:25→16:32)
[2024-12-03] MEDS: LOSARTAN 50 MG TABLET 100 MG PO (10:25)
[2024-12-03] MEDS: BUDESONIDE 0.5 MG/2 ML NEB INH (11:15)
[2024-12-03] MEDS: ALBUTEROL/IPRATROPIUM 3 ML AMPUL INH ×2 (11:15)
--- NOTE | 2024-12-03 12:27 | DIET.CONS ---
Dietary Consultation Note Admission Date: 12/02/2024 12:06 Assessment: 84 y F admitted for Parainfluenza virus pneumonia. Dietitian screened for MNA score. PMH of severe acute malnutrition Feb of this year. Met with pt and daughter at bedside. Pt only eating 25-50% of 3 meals in the last 3 months with a more significant decrease of <25% in the last week before admission d/t lack of appetite. Has discussed appetite stimulants with business systems consultant before and is getting new PCP. Pt is understanding she needs to eat more, working to eat 75-100% of meals while here. UBW was 180 lb 1 year ago but daughter reports that medication rx by business systems consultant was so bad tasting it affected the pt's appetite and was consuming <60% of meals and pt went from 180 lb to 150 lb. Medication has been since changed. Further weight loss to 130 lb at admission (bed weight) Per pt's daughter was 137 lb just 2 weeks ago. NFPE with moderate to severe muscle mass wasting in temples, deltoid, interosseous, moderate orbital and buccal subcutaneous fat loss Ht: 167.64 cm Wt: 59 kg BMI: 20.9 UBW: 68 kg on 07/13/24 (-13% weight loss in 4 months, severe), 81.8 kg 1 yr ago (-28% weight loss, severe) Last BM: 12/03/24 (12/03/24 09:00) MNA: 9 Govind Score: 21 Diet: 12/02/24 Dinner General (Regular) Diet Diet Modifications: Nutrition Percent Meal Consumed 100% 12/03/24 09:00 Percent Meal Consumed 75% 12/02/24 18:00 Labs: RBC 4.70 X10^6/uL (4.0-5.2) 12/03/24 09:56 Hgb 14.9 g/dL (12.0-16.0) 12/03/24 09:56 Hct 43.0 % (36-46) 12/03/24 09:56 Creatinine 0.55 mg/dL (0.52-1.04) 12/03/24 09:56 Lactate 1.7 mmol/L (0.7-2.1) 12/02/24 12:02 NT-Pro-B Natriuret Pep 3680 pg/mL (<450) H 12/02/24 09:30 Nutrition Diagnosis: Severe acute on chronic Protein Calorie Malnutrition related to loss of appetite as evidenced by <60% of estimated energy needs for >1 year with recent further decrease <50% in last 3 months per diet recall, 28% weight loss in a year (severe), moderate to severe muscle mass wasting in temples, deltoid, interosseous Interventions: -Ensure plus at night -During day, extra pb and crackers on tray and cottage cheese on tray -Discussed focusing on foods pt likes (cottage cheese, crackers and cheese/pb, ice cream, hamburgers) and small freq meal, mixing Ensure with ice cream/peanut butter for better taste EER: 8170-2020 kcals (25-30 kcals/kg per BMI), 70 g protein (1.2 g/kg per PCM) Monitoring/Evaluations: PO intakes Electronically Signed by: Rukhsana Wright 12/03/24 12:27 Clinical Dietitian [address] [address]
--- NOTE | 2024-12-03 12:58 | PM.PN.1 ---
Subjective Subjective Interval history: 84-year-old female with severe persistent non eosinophilic asthma (lifelong nonsmoker), WILFREDO status post 15 months of treatment, hypertension, surgical hypothyroidism, history of thyroid cancer status post thyroidectomy who was admitted with acute hypoxic respiratory failure secondary to parainfluenza infection. Patient reports she is feeling better today with regard to her breathing, but notes ongoing harsh cough with any effort to take a deep breath. She reports she did not have any rest overnight. She slept for perhaps 15 minutes overall. They had difficulty maintaining her oxygen saturations overnight with sats as low as 83%. She required oxygen titration up to 5 L. over the course of the day today they were able to wean her down to 2 L. Exam Vital Signs (past 8 hours): - 12/03/24 08:00 12/03/24 11:41 12/03/24 12:00 Temperature 96.2 F L 97.5 F L Pulse Rate 79 87 87 Respiratory Rate 19 16 22 Blood Pressure 171/104 H 148/81 H Pulse Oximetry 94 93 91 Oxygen Delivery Method Nasal Cannula Oxygen Flow Rate 2 2 2 Fraction of Inspired Oxygen 32 SaO2/FiO2 Ratio 293 Oxygen Delivery Method Nasal Cannula Oxygen Flow Rate 2 Narrative Exam Narrative: GEN: Elderly female, very pleasant, Alert and oriented x 3, NAD HEENT:NC, Face symmetric CHEST: Respiratory excursions symmetric, course, diminished, inspiratory wheezes noted in the right upper lobe, otherwise CTAB CV: Mildly tachycardic with a regular rhythm, no M/R/G ABD: Soft, NT/ND, BT present in all 4 quadrants, no organomegaly or masses EXTR: warm, well perfused, no C/C/E SKIN: warm and dry, no rash NEURO: Alert and oriented x 3, nonfocal Objective Labs 12/03/24 09:56 12/03/24 09:56 Labs: Laboratory Results - last 24 hr 12/03/24 09:56 WBC 8.5 RBC 4.70 Hgb 14.9 Hct 43.0 MCV 91.4 MCH 31.6 MCHC 34.6 RDW 14.8 Plt Count 210 Neut % (Auto) 95.8 H Lymph % (Auto) 2.7 L [place] % (Auto) 1.4 L Eos % (Auto) 0.0 L Baso % (Auto) 0.1 Neut # (Auto) 8200 H Lymph # (Auto) 200 L [place] # (Auto) 100 Eos # (Auto) 0 Baso # (Auto) 0 Sodium 137 Potassium 3.1 L Chloride 97 L Carbon Dioxide 29 BUN 13 Creatinine 0.55 Estimated GFR > 60 BUN/Creatinine Ratio 23.6 H Glucose 216 H Calcium 8.1 L PFSH Medical History HTN (hypertension) Hypothyroidism Chronic interstitial lung disease Social History household members: spouse Smoking Status: Never smoker alcohol intake: current Assessment & Plan Assessment & Plan narrative: 1. Parainfluenza viral infection Patient presented with acute parainfluenza infection. Continues on supportive care. Slowly improving. 2. Asthma exacerbation in the setting of severe asthma She remains on albuterol nebulizers, steroids, empiric antibiotics. Will decrease steroids from 60 mg q.6 to 60 mg Q 8 hours. 3. Acute hypoxic respiratory failure Oxygen has improved from requiring supplemental oxygen at 5 liters/minute down to 2 liters/minute today. Will continue to wean as able. 4. Possible bacterial pneumonia Chest CT showed minimal airspace disease, making pneumonia from a bacterial pathogen less likely. However, given known severity of underlying asthma, will continue empiric antibiotics for now. 5. Surgical Hypothyroidism Continue thyroid replacement 6. Hypertension Continue antihypertensive 7. Hypokalemia Replacing potassium Code status Full Prophylaxis Low Bert score Disposition Suspect she will be ready for discharge in 48 hours Time-Based Coding :: [TOTAL MINUTES] spent with patient and on the chart (including review of chart, obtaining history, exam, reviewing outside data, placing orders, documenting exam and treatment plan, and counseling patient) on [DATE]. Quality VTE Deep Vein Thrombosis/Pulmonary Embolism Present on Admission: No
[2024-12-03 13:30] LABS: HEMOLYSIS < 15 (0-50); Potassium 3.2 mmol/L (3.4-5.1)
[2024-12-03] MEDS: guaiFENesin Solution 100 MG/5 ML UDC 200 MG PO (13:45)
[2024-12-03] MEDS: BENZONATATE 100 MG CAPSULE PO (13:45)
[2024-12-03] MEDS: AZITHROMYCIN 500 MG in DEXTROSE 5% IN WATER 250 ML 250 MG IV (16:33)
--- NOTE | 2024-12-03 17:59 | DI.RAD.S_ITS ---
PROCEDURE: XR CHEST 1V INDICATIONS: dyspnea TECHNIQUE: One view of the chest was acquired. COMPARISON: [facility], CR, XR CHEST 1V, 12/02/2024, 9:28. FINDINGS: Surgical changes and devices: Dual lead left-sided transvenous pacemaker. Overlying monitoring wires. Lungs and pleura: Lungs are clear. No pleural effusions or pneumothorax. Mediastinum: Mediastinal contours appear normal. Heart size is normal. Bones and chest wall: No suspicious bony lesions. Overlying soft tissues appear unremarkable. IMPRESSION: No acute cardiopulmonary abnormality is seen. Dictated by: Rosenda Gamez M.D. on 12/03/2024 at 19:05 Approved by: Roesnda Gamez M.D. on 12/03/2024 at 19:05
[2024-12-03] MEDS: ALBUTEROL 2.5 MG/3 ML NEB (ADULT) INH (18:01)
[2024-12-03] MEDS: BUDESONIDE GLYCOPYR FORMOTEROL 2 EACH INH (22:15)
[2024-12-04] VITALS (8 sets, daily range): BP systolic 144–179; BP diastolic 75–94; PULSE 67–92; RESP 16–22; TEMP 35.4–36.1; O2SAT 90–95
[2024-12-04 05:59] LABS: Add Manual Diff / Slide Review NO; Hematocrit 42.2 % (36-46); Hemoglobin 14.2 g/dL (12.0-16.0); Lymphocytes Absolute Auto 300 /uL (1100-4500); Mean Corpuscular HGB Conc 33.7 % (30-36); Mean Corpuscular Hemoglobin 30.9 PG (26-34); Mean Corpuscular Volume 91.7 fL (80-100); Platelet Count 201 X10^3/uL (150-400)
[2024-12-04 06:08] LABS: Blood Urea Nitrogen 17 mg/dL (7-17); Calcium 7.9 mg/dL (8.4-10.2); Carbon Dioxide 32 mmol/L (22-32); Chloride 100 mmol/L (98-107); Estimated Glomerular Filt Rate > 60 mL/min (>60); Glucose 143 mg/dL (70-99); HEMOLYSIS 21 (0-50); Potassium 3.4 mmol/L (3.4-5.1); Sodium 139 mmol/L (137-145)
[2024-12-04 06:09] LABS: Magnesium 1.1 mg/dL (1.6-2.3)
[2024-12-04] MEDS: SODIUM CHLORIDE 0.9% FLUSH 10 ML IV ×3 (06:19→21:08)
[2024-12-04] MEDS: LEVOTHYROXINE 75 MCG TABLET 150 MCG PO (06:19)
[2024-12-04] MEDS: ALBUTEROL 2.5 MG/3 ML NEB (ADULT) INH ×2 (09:30→21:20)
[2024-12-04] MEDS: BUDESONIDE GLYCOPYR FORMOTEROL 2 EACH INH ×3 (09:41→21:08)
[2024-12-04] MEDS: guaiFENesin Solution 100 MG/5 ML UDC 200 MG PO (09:51)
[2024-12-04] MEDS: POTASSIUM CHLORIDE 20 MEQ TAB 40 MEQ PO (09:55)
[2024-12-04] MEDS: LOSARTAN 50 MG TABLET 100 MG PO (09:56)
[2024-12-04] MEDS: METOPROLOL ER 50 MG TABLET 150 MG PO (09:56)
[2024-12-04] MEDS: MAGNESIUM SULFATE 4 GM/100 ML PIGGYBACK IV (09:57)
--- NOTE | 2024-12-04 11:40 | PM.PN.1 ---
Subjective Subjective Interval history: 4-year-old female with severe persistent non eosinophilic asthma (lifelong nonsmoker), WILFREDO status post 15 months of treatment, hypertension, surgical hypothyroidism, history of thyroid cancer status post thyroidectomy who was admitted with acute hypoxic respiratory failure secondary to parainfluenza infection. Patient reports she feels better again today compared with yesterday. She was able to sleep about 4 hours overnight. Oxygen has been weaned down from 2 liters/minute to 1.5 liters/minute. She continues to cough frequently. She is trying to use her incentive spirometer. She does get some relief with the Robitussin cough syrup. Exam Vital Signs (past 8 hours): - 12/04/24 04:00 12/04/24 07:00 12/04/24 09:45 Temperature 96.9 F L 95.7 F L Pulse Rate 76 73 Respiratory Rate 16 22 Blood Pressure 174/87 H 176/94 H Pulse Oximetry 95 94 Oxygen Delivery Method Nasal Cannula Oxygen Flow Rate 1.5 1.5 Fraction of Inspired Oxygen 28 SaO2/FiO2 Ratio 332 Oxygen Delivery Method Nasal Cannula Oxygen Flow Rate 1.5 Narrative Exam Narrative: GEN: Elderly female, very pleasant, Alert and oriented x 3, NAD HEENT:NC, Face symmetric CHEST: Respiratory excursions symmetric, course, diminished, no wheezing, scattered faint crackles CV: RRR, no M/R/G ABD: Soft, NT/ND, BT present in all 4 quadrants, no organomegaly or masses EXTR: warm, well perfused, no C/C/E SKIN: warm and dry, no rash NEURO: Alert and oriented x 3, nonfocal Objective Labs 12/04/24 04:50 12/04/24 04:50 Labs: Laboratory Results - last 24 hr 12/03/24 12/04/24 13:08 04:50 WBC 11.6 H RBC 4.60 Hgb 14.2 Hct 42.2 MCV 91.7 MCH 30.9 MCHC 33.7 RDW 15.3 H Plt Count 201 Neut % (Auto) 94.7 H Lymph % (Auto) 2.7 L [place] % (Auto) 2.6 L Eos % (Auto) 0.0 L Baso % (Auto) 0.0 Neut # (Auto) 68473 H Lymph # (Auto) 300 L [place] # (Auto) 300 Eos # (Auto) 0 Baso # (Auto) 0 Sodium 139 Potassium 3.2 L 3.4 Chloride 100 Carbon Dioxide 32 BUN 17 Creatinine 0.50 L Estimated GFR > 60 BUN/Creatinine Ratio 34.0 H Glucose 143 H Calcium 7.9 L Magnesium 1.1 L PFSH Medical History HTN (hypertension) Hypothyroidism Chronic interstitial lung disease Social History household members: spouse Smoking Status: Never smoker alcohol intake: current Assessment & Plan Assessment & Plan narrative: 1. Parainfluenza viral infection Patient presented with acute parainfluenza infection. Continues on supportive care. Slowly improving. 2. Asthma exacerbation in the setting of severe asthma She remains on albuterol nebulizers, steroids, empiric antibiotics. Will decrease steroids from 60 mg q.8 to 40 mg Q 8 hours. 3. Acute hypoxic respiratory failure Oxygen has improved from requiring supplemental oxygen at 2 liters/minute down to 1.5 liters/minute today. She does have periodic desaturations with oxygen saturation of 88% on 1.5 L earlier this morning. She notes she did drop down to 86% overnight. Will continue to wean as able. 4. Possible bacterial pneumonia Chest CT showed minimal airspace disease, making pneumonia from a bacterial pathogen less likely. However, given known severity of underlying asthma, will continue empiric antibiotics for now. Azithromycin will be complete tomorrow. Today is day 3/5 of ceftriaxone. 5. Surgical Hypothyroidism Continue thyroid replacement 6. Hypertension Continue antihypertensive 7. Hypokalemia Improved after replacement. 8. Hypomagnesemia Magnesium level is 1.1 today. Repleting Code status Full Prophylaxis Low Bert score Disposition Suspect she will be ready for discharge in 24 to 48 hours Time-Based Coding :: [TOTAL MINUTES] spent with patient and on the chart (including review of chart, obtaining history, exam, reviewing outside data, placing orders, documenting exam and treatment plan, and counseling patient) on [DATE]. Quality VTE Deep Vein Thrombosis/Pulmonary Embolism Present on Admission: No
[2024-12-04] MEDS: AZITHROMYCIN 500 MG in DEXTROSE 5% IN WATER 250 ML 250 MG IV (15:22)
[2024-12-05] VITALS (13 sets, daily range): BP systolic 154–196; BP diastolic 84–113; PULSE 68–79; RESP 15–24; TEMP 35.4–36.2; O2SAT 89–99
[2024-12-05] MEDS: TRAZODONE 50 MG TABLET PO (00:32)
[2024-12-05] MEDS: hydrALAZINE 20 MG/ML VIAL 10 MG IV ×2 (00:58→23:48)
[2024-12-05] MEDS: LEVOTHYROXINE 75 MCG TABLET 150 MCG PO (04:54)
[2024-12-05] MEDS: ACETAMINOPHEN 325 MG TABLET 650 MG PO (04:54)
[2024-12-05 05:29] LABS: Blood Urea Nitrogen 16 mg/dL (7-17); Calcium 8.0 mg/dL (8.4-10.2); Carbon Dioxide 32 mmol/L (22-32); Chloride 97 mmol/L (98-107); Estimated Glomerular Filt Rate > 60 mL/min (>60); Glucose 150 mg/dL (70-99); HEMOLYSIS < 15 (0-50); Magnesium 1.8 mg/dL (1.6-2.3); Potassium 3.2 mmol/L (3.4-5.1); Sodium 139 mmol/L (137-145)
--- NOTE | 2024-12-05 07:45 | PM.DS.1 ---
History of Present Illness History of Present Illness Date Patient Seen: 12/05/24 Chief complaint: SOB feels like something is in her lungs Discharge Providers Provider Date of admission: 12/02/24 12:06 Primary care physician: Sita Shepherd MD Consults: 12/02/24 15:46 Consult to Cardio/Pulmonary Rehabilitation Routine Comment: Physician Instructions: Evaluate and treat Discharge provider: Neeru Vicente MD Summary Hospital Course Hospital Course: 1. Parainfluenza viral infection Patient presented with acute parainfluenza infection. Continues on supportive care. Slowly improving. 2. Asthma exacerbation in the setting of severe asthma She remains on albuterol nebulizers, steroids, empiric antibiotics. Will decrease steroids from 60 mg q.8 to 40 mg Q 8 hours. 3. Acute hypoxic respiratory failure Oxygen has improved from requiring supplemental oxygen at 2 liters/minute down to 1.5 liters/minute today. She does have periodic desaturations with oxygen saturation of 88% on 1.5 L earlier this morning. She notes she did drop down to 86% overnight. Will continue to wean as able. 4. Possible bacterial pneumonia Chest CT showed minimal airspace disease, making pneumonia from a bacterial pathogen less likely. However, given known severity of underlying asthma, will continue empiric antibiotics for now. Azithromycin will be complete tomorrow. Today is day 3/5 of ceftriaxone. 5. Surgical Hypothyroidism Continue thyroid replacement 6. Hypertension Continue antihypertensive 7. Hypokalemia Improved after replacement. 8. Hypomagnesemia Magnesium level is 1.1 today. Repleting Code status Full Prophylaxis Low Bert score Disposition Suspect she will be ready for discharge in 24 to 48 hours Exam Vital Signs (past 8 hours): - 12/05/24 00:00 12/05/24 00:33 12/05/24 01:37 Temperature Pulse Rate 73 79 68 Respiratory Rate 18 Blood Pressure 196/93 H 185/97 H 154/92 H Pulse Oximetry 99 Oxygen Flow Rate 1.5 12/05/24 02:00 12/05/24 02:45 12/05/24 07:00 Temperature 96.2 F L Pulse Rate 70 Respiratory Rate 15 Blood Pressure 169/89 H Pulse Oximetry 92 92 94 Oxygen Flow Rate 1.5 1.5 1.5 Fraction of Inspired Oxygen 28 SaO2/FiO2 Ratio 332 Oxygen Delivery Method Nasal Cannula Oxygen Flow Rate 1.5 Objective Labs 12/04/24 04:50 12/05/24 04:50 Labs: Laboratory Results - last 24 hr 12/05/24 04:50 Sodium 139 Potassium 3.2 L Chloride 97 L Carbon Dioxide 32 BUN 16 Creatinine 0.55 Estimated GFR > 60 BUN/Creatinine Ratio 29.1 H Glucose 150 H Calcium 8.0 L Magnesium 1.8 PFSH Medical History HTN (hypertension) Hypothyroidism Chronic interstitial lung disease Social History household members: spouse Smoking Status: Never smoker alcohol intake: current Discharge Plan Discharge orders & Medications Prescriptions: No Action metoprolol succinate 100 mg tablet extended release 24 hr 150 mg PO DAILY irbesartan-hydrochlorothiazide 300-12.5 mg tablet 1 tab PO DAILY levothyroxine 175 mcg tablet 150 mcg PO DAILY Breztri Aerosphere 160-9-4.8 mcg/actuation HFA aerosol inhaler 2 inh inhalation BID Qty: 10.7 11RF Rx Instructions: Rinse mouth with water, gargle and spit after each use; replaces Stiolto albuterol sulfate 90 mcg/actuation HFA aerosol inhaler 2 puff INHALATION 4XD PRN (Reason: shortness of breath or wheezing) Qty: 54 11RF albuterol sulfate 2.5 mg /3 mL (0.083 %) solution for nebulization 2.5 mg inhalation Q6H Qty: 360 11RF trazodone 50 mg tablet 50 mg PO BEDTIME PRN (Reason: insomnia) Qty: 30 11RF Follow up/Referrals: Sita Shepherd MD [Primary Care Provider, Family Practice] Discharge Data Primary Care Provider: Sita Shepherd Quality VTE Deep Vein Thrombosis/Pulmonary Embolism Present on Admission: No
[2024-12-05] MEDS: BUDESONIDE GLYCOPYR FORMOTEROL 2 EACH INH ×2 (09:07→21:00)
[2024-12-05] MEDS: METOPROLOL ER 50 MG TABLET 150 MG PO (09:10)
[2024-12-05] MEDS: LOSARTAN 50 MG TABLET 100 MG PO (09:10)
[2024-12-05] MEDS: POTASSIUM CHLORIDE 20 MEQ TAB 40 MEQ PO ×2 (09:10→14:21)
--- NOTE | 2024-12-05 12:04 | PM.PN.1 ---
Subjective Subjective Date Patient Seen: 12/05/24 Interval history: She is quite hard of hearing but says she is breathing better today. She continues on ceftriaxone and azithromycin will but will be changed to cefepime due to the Pseudomonas, and likely Cipro at home. There are right lower lobe crackles and left-sided wheezes. The sodium is 139 with a potassium of 3.2. The glucose is 150. She is 93% on 1 L nasal cannula with a blood pressure of 169/89. Exam Vital Signs (past 8 hours): - 12/05/24 07:00 12/05/24 11:37 Temperature 96.2 F L 96.5 F L Pulse Rate 70 73 Respiratory Rate 15 24 Blood Pressure 169/89 H 173/84 H Pulse Oximetry 94 93 Oxygen Flow Rate 1.5 1.5 Fraction of Inspired Oxygen 28 SaO2/FiO2 Ratio 332 Oxygen Delivery Method Nasal Cannula Oxygen Flow Rate 1.5 Narrative Exam Narrative: Alert and oriented x3. No apparent distress. Very hard of hearing. Lungs have wheezing bilaterally with right lower lung crackles. Heart is regular rate and rhythm without murmur. There is no ankle edema Objective Labs 12/04/24 04:50 12/05/24 04:50 Labs: Laboratory Results - last 24 hr 12/05/24 04:50 Sodium 139 Potassium 3.2 L Chloride 97 L Carbon Dioxide 32 BUN 16 Creatinine 0.55 Estimated GFR > 60 BUN/Creatinine Ratio 29.1 H Glucose 150 H Calcium 8.0 L Magnesium 1.8 [facility] Medical History HTN (hypertension) Hypothyroidism Chronic interstitial lung disease Social History household members: spouse Smoking Status: Never smoker alcohol intake: current Assessment & Plan Assessment & Plan narrative: 1. Parainfluenza viral infection Patient presented with acute parainfluenza infection. Continues on supportive care. Slowly improving with improving oxygenation. 2. Asthma exacerbation in the setting of severe asthma She remains on albuterol nebulizers, steroids, azithromycin and cefepime. Will decrease Solu-Medrol from 60 mg q.8 to 40 mg Q 8 hours. 3. Acute hypoxic respiratory failure Oxygen has improved from requiring supplemental oxygen at 2 liters/minute down to 1 liter/minute. Will continue to wean as able. 4. Possible bacterial pneumonia Chest CT showed minimal airspace disease. The sputum culture grows scant Pseudomonas and scant mold. Stopping azithromycin and ceftriaxone. Continuing cefepime and will change to oral fluoroquinolone at discharge to complete a 7 day course. Consider mold/fungal treatment if not improving. 5. Surgical Hypothyroidism Continue thyroid replacement 6. Hypertension Continue antihypertensive 7. Hypokalemia 3.2 on 12/05. Supplement and follow 8. Hypomagnesemia Magnesium level is 1.8 today. Code status Full Prophylaxis Low Bert score Disposition Suspect she will be ready for discharge in 24 hours. Time-Based Coding :: [TOTAL MINUTES] spent with patient and on the chart (including review of chart, obtaining history, exam, reviewing outside data, placing orders, documenting exam and treatment plan, and counseling patient) on [DATE]. Quality VTE Deep Vein Thrombosis/Pulmonary Embolism Present on Admission: No
[2024-12-05] MEDS: CEFEPIME 1 GM in SODIUM CHLORIDE 0.9% 100 ML IV ×2 (12:13→22:31)
--- NOTE | 2024-12-05 16:01 | CM.DPNOTE ---
DCP note TOMOGRAPHY TECHNOLOGIST reviewed EMR per provider in morning rounds, down to 1ltrs O2. anticipate dc tomorrow. per chart review, no new CM needs identified at this time. Anticipate home tomorrow/when on room air with dtr support and OP f/u. CM team will continue to follow closely in case any DCP need should arise TANA Espitia
--- NOTE | 2024-12-05 16:31 | PC.NURSE ---
Patient denies pain. She has a non productive cough. Lung sounds are clear but diminished. Up to bathroom 1 person sba. She is resting comfortably and is waiting for dinner.
[2024-12-05] MEDS: SODIUM CHLORIDE 0.9% FLUSH 10 ML IV (20:39)
[2024-12-05] MEDS: BENZONATATE 100 MG CAPSULE PO (22:30)
[2024-12-05] MEDS: TRAZODONE 50 MG TABLET 100 MG PO (23:49)
[2024-12-06] VITALS (9 sets, daily range): BP systolic 148–177; BP diastolic 54–94; PULSE 67–90; RESP 12–18; TEMP 36.2–36.6; O2SAT 88–94
[2024-12-06] MEDS: LEVOTHYROXINE 75 MCG TABLET 150 MCG PO (06:32)
--- NOTE | 2024-12-06 07:24 | PC.NURSE ---
Dr. Escobar notified regarding pt being hypertensive throughout the night, pt received one dose of prn hydralazine with minimal effects. pt currently on 3 hypertensive medications. Per patient and per EMR pt bp's have been wnl in prior hospitalizations.
[2024-12-06] MEDS: METOPROLOL ER 50 MG TABLET 150 MG PO (09:21)
[2024-12-06] MEDS: CEFEPIME 1 GM in SODIUM CHLORIDE 0.9% 100 ML IV ×2 (09:21→21:56)
[2024-12-06] MEDS: LOSARTAN 50 MG TABLET 100 MG PO (09:21)
[2024-12-06] MEDS: BUDESONIDE GLYCOPYR FORMOTEROL 2 EACH INH ×2 (09:22→20:48)
[2024-12-06] MEDS: SODIUM CHLORIDE 0.9% FLUSH 10 ML IV ×2 (09:23→21:55)
--- NOTE | 2024-12-06 10:30 | PC.NURSE ---
Patient is alert and oriented x4, her bs upon auscultation with wheezes. Systolic blood pressure in the 170s, is aware of this. Patient just had her antibiotic, She continues to be on oxygen at 1.5l. Ate well at breakfast.
--- NOTE | 2024-12-06 13:55 | PM.PN.1 ---
Subjective Subjective Interval history: S: Her breathing and cough have improved dramatically, she was still on oxygen and does desaturate to the mid 80s on room air. She has been mostly spending time in bed in his not really been out walking at all or sitting in chair. She was using the incentive spirometer sporadically. Her primary concern is her blood pressure is and how hypertensive she has been here. She was on 3 medications currently and is open to another medication. All of her chronic medications are at maximum dose. Exam Vital Signs (past 8 hours): - 12/06/24 07:30 12/06/24 08:00 12/06/24 12:00 Temperature 97.9 F 97.1 F L Pulse Rate 67 68 Respiratory Rate 15 16 Blood Pressure 174/83 H 148/78 H Pulse Oximetry 91 92 92 Oxygen Delivery Method Nasal Cannula Oxygen Flow Rate 1 0 0 Fraction of Inspired Oxygen 24 Fraction of Inspired Oxygen 24 SaO2/FiO2 Ratio 379 Oxygen Delivery Method Nasal Cannula Oxygen Flow Rate 0 Narrative Exam Narrative: NAD, alert and oriented. Fluent speech. Comfortable on oxygen, intermittent cough. Lungs are clear, normal rate and effort. Heart is regular, no murmur gallop or rub. Abdomen is soft, non distended. Extremities are free of edema. Objective Labs 12/04/24 04:50 12/05/24 04:50 [facility] Medical History HTN (hypertension) Hypothyroidism Chronic interstitial lung disease Social History household members: spouse Smoking Status: Never smoker alcohol intake: current Assessment & Plan Assessment & Plan narrative: 1. Parainfluenza viral infection Patient presented with acute parainfluenza infection. Continues on supportive care. Slowly improving with improving oxygenation. 2. Asthma exacerbation in the setting of severe asthma She remains on albuterol nebulizers, steroids, azithromycin and cefepime. Will decrease Solu-Medrol from 60 mg q.8 to 40 mg Q 8 hours. 3. Acute hypoxic respiratory failure Oxygen has improved from requiring supplemental oxygen at 2 liters/minute down to 1 liter/minute. Will continue to wean as able. 4. Possible bacterial pneumonia Chest CT showed minimal airspace disease. The sputum culture grows scant Pseudomonas and scant mold. Stopping azithromycin and ceftriaxone. Continuing cefepime and will change to oral fluoroquinolone at discharge to complete a 7 day course. Consider mold/fungal treatment if not improving. 5. Surgical Hypothyroidism Continue thyroid replacement 6. Hypertension, recently poorly controlled and somewhat hypertensive. Continue antihypertensive 7. Hypokalemia 3.2 on 12/05. Supplement and follow 8. Hypomagnesemia Magnesium level is 1.8 today. PLAN: -continue all current measures and watch another day. -attempt to wean oxygen as able. -add amlodipine 5 q.d. to her current blood pressure medications. Anticipate discharge on December 07. Time-Based Coding :: [TOTAL MINUTES] spent with patient and on the chart (including review of chart, obtaining history, exam, reviewing outside data, placing orders, documenting exam and treatment plan, and counseling patient) on [DATE]. Quality VTE Deep Vein Thrombosis/Pulmonary Embolism Present on Admission: No
[2024-12-06] MEDS: AMLODIPINE 5 MG TABLET PO (14:28)
[2024-12-06] MEDS: TRAZODONE 50 MG TABLET 100 MG PO (21:55)
--- NOTE | 2024-12-06 22:13 | PC.NURSE ---
Pt requesting to have her valium and trazadone together at the same time, therefore valium was given a bit later.
[2024-12-07] VITALS: PULSE 66; O2SAT 94
[2024-12-07 04:00] VITALS: PULSE 67; O2SAT 94
[2024-12-07 05:39] VITALS: BP 164/82; PULSE 72; RESP 16; TEMP 35.8; O2SAT 89
[2024-12-07] MEDS: LEVOTHYROXINE 75 MCG TABLET 150 MCG PO (05:53)
[2024-12-07 08:00] VITALS: BP 166/90; PULSE 70; RESP 20; TEMP 36.3; O2SAT 92
[2024-12-07] MEDS: METOPROLOL ER 50 MG TABLET 150 MG PO (09:07)
[2024-12-07] MEDS: LOSARTAN 50 MG TABLET 100 MG PO (09:07)
[2024-12-07] MEDS: SODIUM CHLORIDE 0.9% FLUSH 10 ML IV (09:09)
[2024-12-07] MEDS: BUDESONIDE GLYCOPYR FORMOTEROL 2 EACH INH (09:09)
[2024-12-07] MEDS: AMLODIPINE 5 MG TABLET PO ×2 (09:09→12:21)
[2024-12-07] MEDS: CEFEPIME 1 GM in SODIUM CHLORIDE 0.9% 100 ML IV (10:54)
--- NOTE | 2024-12-07 11:08 | PC.NURSE ---
Patient is on room air, she will be discharging home today. Sats are between 91-92%. Showered and iv antibiotic is infusing.
--- NOTE | 2024-12-07 11:11 | PM.DS.1 ---
History of Present Illness History of Present Illness Chief complaint: SOB feels like something is in her lungs Narrative: She was a an 84-year-old female with a history of COPD and asthma who presents with 3 days' history of cough and increased dyspnea. She was followed by Pulmonary at [facility]. In the ED, she was found to be tight and had a clear chest x-ray with a positive respiratory PCR for parainfluenza virus. She was had a productive cough. She also notes a 30 lb weight loss over the last 2-3 months. She was recently been started on a new inhaler from Jessenia Dyson. He feels that she was a severe persistent non eosinophilic asthma. She lives locally. She was a nonsmoker. She smoked for several years in college only. No fevers, or chills. No diarrhea. Discharge Providers Provider Date of admission: 12/02/24 12:06 Discharge Date: 12/07/24 Primary care physician: Sita Shepherd MD Consults: 12/02/24 15:46 Consult to Cardio/Pulmonary Rehabilitation Routine Comment: Physician Instructions: Evaluate and treat Discharge provider: Harvinder Escobar MD Summary Hospital Course Discharge Diagnosis: 1. Parainfluenza viral infection, present on admission and improved. Patient presented with acute parainfluenza infection. 2. Asthma exacerbation in the setting of severe asthma, present on admission and improved. She remains on albuterol nebulizers, steroids, azithromycin and cefepime. Will decrease Solu-Medrol from 60 mg q.8 to 40 mg Q 8 hours. 3. Acute hypoxic respiratory failure, present on admission and improved. Oxygen has improved from requiring supplemental oxygen at 2 liters/minute down to 1 liter/minute. Will continue to wean as able. 4. Possible bacterial pneumonia, present on admission and improved. Chest CT showed minimal airspace disease. Sputum with Pseudomonas sensitive to quinolones and mold. This may well be a colonization issue. 5. Surgical Hypothyroidism Continue thyroid replacement 6. Hypertension, recently poorly controlled and somewhat hypertensive. Continue antihypertensive 7. Hypokalemia 3.2 on 12/05. Supplement and follow 8. Hypomagnesemia Magnesium level is 1.8 today. Hospital Course: She was admitted with acute reactive airways, severe cough, and concern for bacterial pneumonia in context of parainfluenza virus. She was treated with steroids, and bronchodilators as well as empiric antibiotics. She improved substantially and felt much better on the day of discharge. She was able to ambulate and was no longer hypoxemic. A sputum culture did grew out Pseudomonas and mold. It was is unclear if this is a colonization or something else. The patient appeared to suffer from an acute illness related mostly to her parainfluenza nonetheless, she will be discharged on levofloxacin 750 mg follow up with her PCP. Status at Discharge Cognitive/behavioral status at discharge: oriented Functional status at discharge: independent ambulation Overall status at discharge: patient is back to baseline Time Spent with Patient Time spent: Greater than 30 minutes Exam Vital Signs (past 8 hours): - 12/07/24 04:00 12/07/24 05:39 12/07/24 08:00 Temperature 96.4 F L 97.3 F L Pulse Rate 67 72 70 Respiratory Rate 16 20 Blood Pressure 164/82 H 166/90 H Pulse Oximetry 94 89 L 92 Oxygen Flow Rate 1 0 0 Fraction of Inspired Oxygen 24 SaO2/FiO2 Ratio 379 Oxygen Delivery Method Nasal Cannula Oxygen Flow Rate 0 Narrative Exam Narrative: NAD, alert and oriented. Fluent speech. Lungs are clear, normal rate and effort. She was minimal wheezing and good air movement. She did have a cough after taking a deep breath in and out. Heart is regular, no murmur gallop or rub. Abdomen is soft, non distended. Extremities are free of edema. Objective ECG Impression: Intervals [place] Rate: 86 P: MA: QRS: -38 QRSD: 102 T: -36 QT: 392 QTc: 469 Interpretive Statements Atrial fibrillation Left axis deviation Moderate voltage criteria for LVH, may be normal variant ( R in aVL , Raceil product ) ST & T wave abnormality, consider lateral ischemia Imaging Multiple studies: : Radiologist's impression: Chest x-ray: No acute cardiopulmonary abnormality is seen. Chest CTA: No pulmonary embolus. No acute cardiopulmonary process. Patchy mild bilateral alveolar airspace disease, nodular scattered radiodensities within the lung parenchyma, and patchy bronchiectasis all appear chronic. Presumed chronic lung disease, etiology uncertain. Labs 12/04/24 04:50 12/05/24 04:50 [facility] Medical History HTN (hypertension) Hypothyroidism Chronic interstitial lung disease Social History household members: spouse Smoking Status: Never smoker alcohol intake: current Discharge Assessment & Plan Assessment and Plan Assessment: 1. Parainfluenza viral infection, present on admission and improved. Patient presented with acute parainfluenza infection. 2. Asthma exacerbation in the setting of severe asthma, present on admission and improved. She remains on albuterol nebulizers, steroids, azithromycin and cefepime. Will decrease Solu-Medrol from 60 mg q.8 to 40 mg Q 8 hours. 3. Acute hypoxic respiratory failure, present on admission and improved. Oxygen has improved from requiring supplemental oxygen at 2 liters/minute down to 1 liter/minute. Will continue to wean as able. 4. Possible bacterial pneumonia, present on admission and improved. Chest CT showed minimal airspace disease. Sputum with Pseudomonas sensitive to quinolones, and mold. This may well be a colonization issue. 5. Surgical Hypothyroidism Continue thyroid replacement 6. Hypertension, recently poorly controlled and somewhat hypertensive. Continue antihypertensive 7. Hypokalemia 3.2 on 12/05. Supplement and follow 8. Hypomagnesemia Plan of Treatment: Discharge home on level levofloxacin 750 daily for 7 days, follow up with PCP. Note she did have Pseudomonas in her sputum, but this was of unclear clinical significance. She also was growing mold, again of unclear clinical significance Discharge Plan Discharge Plan Patient Disposition: Home Provider Discharge Comment: Stable for discharge, we will add 7 days of levofloxacin and 5 days of prednisone. She will follow up with PCP within the next week. Discharge orders & Medications Prescriptions: New amlodipine 5 mg Tablet 5 mg PO DAILY Qty: 30 0RF benzonatate 100 mg Capsule 100 mg PO TID PRN (Reason: Cough) Qty: 30 0RF levofloxacin 750 mg tablet 750 mg PO DAILY Qty: 7 0RF prednisone 50 mg tablet 50 mg PO DAILY Qty: 5 0RF Continued metoprolol succinate 100 mg tablet extended release 24 hr 150 mg PO DAILY irbesartan-hydrochlorothiazide 300-12.5 mg tablet 1 tab PO DAILY levothyroxine 175 mcg tablet 150 mcg PO DAILY Breztri Aerosphere 160-9-4.8 mcg/actuation HFA aerosol inhaler 2 inh inhalation BID Qty: 10.7 11RF Rx Instructions: Rinse mouth with water, gargle and spit after each use; replaces Stiolto albuterol sulfate 90 mcg/actuation HFA aerosol inhaler 2 puff INHALATION 4XD PRN (Reason: shortness of breath or wheezing) Qty: 54 11RF albuterol sulfate 2.5 mg /3 mL (0.083 %) solution for nebulization 2.5 mg inhalation Q6H Qty: 360 11RF trazodone 50 mg tablet 50 mg PO BEDTIME PRN (Reason: insomnia) Qty: 30 11RF Follow up/Referrals: Sita Shepherd MD [Primary Care Provider, Family Practice] Diet/Activity/Treatments Diet: Regular Activity: As tolerated. Visit Report/Discharge Packet Instructions: Chronic Obstructive Pulmonary Disease, Asthma -- Adult, DI for Acute Bronchitis Stand Alone Forms: Patient Portal/API Discharge Data Primary Care Provider: Sita Shepherd Quality VTE Deep Vein Thrombosis/Pulmonary Embolism Present on Admission: No
--- NOTE | 2024-12-07 11:12 | DIET.PN1 ---
Dietary Progress Note Assessment: F/u at bedside. Pt reports d/c today. Reports eating more than she was at home and improvement in appetite. Will work to continue small freq meals at home of foods we discussed at consult to continue to promote appetite. Ht: 167.64 cm Wt: 59 kg BMI: 20.9 UBW: Last BM: 12/03/24 (12/03/24 09:00) MNA: 9 Govind Score: 21 Diet: 12/02/24 Dinner General (Regular) Diet Diet Modifications: Nutrition Percent Meal Consumed 70 12/07/24 08:32 Percent Meal Consumed 75% 12/06/24 19:00 Percent Meal Consumed 50% 12/06/24 13:00 Percent Meal Consumed 100% 12/06/24 08:45 Percent Meal Consumed 75% 12/05/24 18:00 Labs: RBC 4.60 X10^6/uL (4.0-5.2) 12/04/24 04:50 Hgb 14.2 g/dL (12.0-16.0) 12/04/24 04:50 Hct 42.2 % (36-46) 12/04/24 04:50 Creatinine 0.55 mg/dL (0.52-1.04) 12/05/24 04:50 Lactate 1.7 mmol/L (0.7-2.1) 12/02/24 12:02 NT-Pro-B Natriuret Pep 3680 pg/mL (<450) H 12/02/24 09:30 Electronically Signed by: Rukhsana Wright 12/07/24 11:12 Clinical Dietitian [address] [id number]
--- NOTE | 2024-12-07 11:27 | CM.DPNOTE ---
DCP note DIRECTOR ERP reviewed EMR per provider/chart review, cleared for dc today. DIRECTOR ERP met with pt in room. confirmed eager to dc home today. deny any DCP/CM needs. her ride will be here at 130 to pick her up. P: dc home today with OP f/u. CM team will continue to follow as needed in case any DCP needs should arise TANA Fischer
[2024-12-07 12:00] VITALS: BP 153/75; PULSE 67; RESP 16; TEMP 36.6; O2SAT 92
== END 2024-12-07 14:15 | disposition home or self-care (01) | DRG 193 ==
LOC: ED 11:58 → AC 13:52
PROVIDERS: Family Medicine; Admitting Provider Hospitalist; Emergency Provider Emergency Medicine; PCP Family Medicine; Referring Provider Emergency Medicine; Visit Provider Hospitalist
DX: J12.2 Parainfluenza virus pneumonia (principal); J96.01 Acute respiratory failure with hypoxia; J45.51 Severe persistent asthma with (acute) exacerbation; J44.0 Chronic obstructive pulmonary disease with (acute) lower respiratory infection; J15.1 Pneumonia due to Pseudomonas; J44.89 Other specified chronic obstructive pulmonary disease; E89.0 Postprocedural hypothyroidism; I10 Essential (primary) hypertension; E87.6 Hypokalemia; E83.42 Hypomagnesemia; G47.00 Insomnia, unspecified; Z79.890 Hormone replacement therapy; Z87.891 Personal history of nicotine dependence
CPT/HCPCS: 36415; 36600; 71045; 71275; 80048; 80053; 82805; 83605; 83735; 83880; 84132; 84484; 85025; 85610; 87070; 87077; 87107; 87186; 87205; 87633; 93005; 94150; 94640; 94667; 94762; 96361; 96374; 99285; J0360; J0692; J0696; J2919; J3475; J7613; Q9967

== ENCOUNTER 2025-04-17 10:24 | Inpatient (IN) | payer MEDICARE, OTHER, SELFPAY ==
[2024-12-02 13:37] VITALS: BMI 20.9
[2025-04-17] VITALS (19 sets, daily range): BP systolic 75–157; BP diastolic 56–79; PULSE 70–91; RESP 16–20; TEMP 36.6–36.8; O2SAT 87–96; BMI 20.9
--- NOTE | 2025-04-17 10:42 | ED.URI ---
HPI - URI/Sore Throat General Chief Complaint: Upper Respiratory Symptoms Stated Complaint: Respiratory issues/80 oxygen Time Seen by Provider: 04/17/25 10:30 History of Present Illness HPI Narrative: 84y F presents with cough sputum production, subjective fever, congestion and sob along with daugther and grandchild with similiar complaints. Pt noticed 02 sat was in the 80s at home and came here to be evaluated. Pt denies chest, back, abdominal pain, and leg pain and swelling. Other than what is stated 14 pt ROS is negative. Related Data Home Medications ?Medication ?Instructions ?Recorded ?Confirmed irbesartan 300 1 tab PO DAILY 07/13/24 04/17/25 mg-hydrochlorothiazide 12.5 mg tablet metoprolol succinate 100 mg 150 mg PO DAILY 07/13/24 04/17/25 tablet,extended release 24 hr levothyroxine 175 mcg tablet 150 mcg PO DAILY 10/06/24 04/17/25 apixaban 5 mg tablet (Eliquis) 5 mg PO BID 04/17/25 04/17/25 Previous Rx's ?Medication ?Instructions ?Recorded albuterol sulfate 2.5 mg/3 mL 2.5 mg (3 mL) inhalation Q6H #360 10/06/24 (0.083 %) solution for nebulization mL albuterol sulfate 90 mcg/actuation 2 puff inhalation 4XD PRN 10/06/24 aerosol inhaler shortness of breath or wheezing #54 grams trazodone 50 mg tablet 50 mg PO BEDTIME PRN insomnia #30 11/05/24 tabs amlodipine 5 mg tablet 5 mg PO DAILY #30 tabs 12/07/24 budesonide 160 mcg-glycopyr 9 2 inh inhalation BID #10.7 grams 12/24/24 mcg-formot 4.8 mcg/actuation HFA inhaler (Breztri Aerosphere) Allergies Allergy/AdvReac Type Severity Reaction Status Date / Time No Known Drug Allergies Allergy Verified 12/24/24 11:08 Review of Systems Review of Systems ROS Unobtainable: All systems reviewed & are unremarkable except as noted in HPI and below Patient History Medical History HTN (hypertension) Hypothyroidism Chronic interstitial lung disease Social History household members: spouse alcohol intake: current Alcohol type: wine Exam Narrative Exam Narrative: GENERAL: [84] year old patient appears stated age. Well-developed patient, in mild distress. HEAD: Atraumatic. Normocephalic. EYES: Pupils equal round and reactive. Extraocular motions intact. No scleral icterus. No injection or drainage. ENT: Nose without bleeding, purulent drainage. Throat without erythema, tonsillar hypertrophy or exudate. Airway patent. NECK: Trachea midline. Non tender CARDIOVASCULAR: Regular rate and rhythm without murmurs, gallops, or rubs. RESPIRATORY: Clear to auscultation. Breath sounds equal bilaterally. No wheezes, rales, or rhonchi. GASTROINTESTINAL: Abdomen soft, non-tender, nondistended. EXTREMITIES: No edema or joint tenderness. BACK: Nontender without deformity or crepitance. No flank tenderness. NEURO: AOx3. SKIN: No rash or erythema of visible areas Initial Vital Signs Initial Vital Signs: Vital Signs Temperature 98.0 F 04/17/25 10:32 Pulse Rate 82 04/17/25 10:32 Respiratory Rate 16 04/17/25 10:32 Blood Pressure 133/64 04/17/25 10:32 Pulse Oximetry 94 04/17/25 10:32 Oxygen Delivery Method Room Air 04/17/25 10:32 Course Orders Ordered: ED Orders 04/17/25 10:41 Blood Culture Stat CBC Auto Diff [Complete Blood Count AUTO DIFF] Stat CMP [Comprehensive Metabolic Panel] Stat Covid-19 + FLU A/B + RSV - PCR Stat Lactate (Lactic Acid) Stat Methylprednisolone (Methylprednisolone Succ 125 Mg/2 Ml Vial) 125 mg IV NOW ONE Stop: 04/17/25 10:42 Vital Signs Vital signs: Vital Signs - 8 hr 04/17/25 10:32 Temperature 98.0 F Pulse Rate 82 Respiratory Rate 16 Blood Pressure 133/64 Pulse Oximetry 94 Oxygen Delivery Method Room Air MDM - URI/Sore Throat Imaging Data Chest x-ray: Radiologist's Impression: [address] [address] XRay Report Signed Patient: Henna Darden MR#: [id number] : 1940 Acct:[id number] Age/Sex: 84 / F Date of Service: 04/17/25 Loc: ED Accession Number: [id number] Procedure: XR chest 1V Ordering Provider: Charlie Andersen D.O. PROCEDURE: XR CHEST 1V INDICATIONS: chest pain TECHNIQUE: One view of the chest was acquired. COMPARISON: [facility], CR, XR CHEST 1V, 12/03/2024, 17:53. [facility], CR, XR CHEST 1V, 12/02/2024, 9:28. FINDINGS: Surgical changes and devices: Left chest wall generator with cardiac leads. Lungs and pleura: Lungs are clear. No pleural effusions or pneumothorax. Mediastinum: Mediastinal contours appear normal. Heart size is enlarged. Bones and chest wall: No suspicious bony lesions. Overlying soft tissues appear unremarkable. IMPRESSION: No acute cardiopulmonary abnormality is seen. ECG Data Interpretation: Sinus Rhythm HR 84 SC 190 QRS [address]-t wave depression v56 change from 07/13/24 MDM Narrative Medical decision making narrative: All lab work, vital signs, nurse triage note, medication list, previous ER visits, and all imaging studies reviewed. COVID flu RSV negative. Patient given DuoNeb Solu-Medrol Rocephin Zithromax here. O2 sat in the 88 -91% Chest x-ray showed no acute process. WBC 0.7 hemoglobin 14.9 platelet 241 sodium 136 potassium 3.5 chloride 95 CO2 31 BUN 16 creatinine 0.73 LFTs normal troponin normal BNP 2290. Case d/w who has graciously accepted pt for inpatient admission Discharge Plan Departure Patient Disposition: Admitted as Observation Clinical Impression: Chronic obstructive pulmonary disease with (acute) exacerbation Admit Date/Time: 04/17/25 12:31
--- NOTE | 2025-04-17 10:44 | DI.RAD.S_ITS ---
PROCEDURE: XR CHEST 1V INDICATIONS: chest pain TECHNIQUE: One view of the chest was acquired. COMPARISON: [facility], CR, XR CHEST 1V, 12/03/2024, 17:53. [facility], CR, XR CHEST 1V, 12/02/2024, 9:28. FINDINGS: Surgical changes and devices: Left chest wall generator with cardiac leads. Lungs and pleura: Lungs are clear. No pleural effusions or pneumothorax. Mediastinum: Mediastinal contours appear normal. Heart size is enlarged. Bones and chest wall: No suspicious bony lesions. Overlying soft tissues appear unremarkable. IMPRESSION: No acute cardiopulmonary abnormality is seen. Dictated by: Barrington Pham M.D. on 04/17/2025 at 11:10 Approved by: Barrington Pham M.D. on 04/17/2025 at 11:10
[2025-04-17 10:56] LABS: Add Manual Diff / Slide Review NO; Hematocrit 43.4 % (36-46); Hemoglobin 14.9 g/dL (12.0-16.0); Lymphocytes Absolute Auto 300 /uL (1100-4500); Mean Corpuscular HGB Conc 34.3 % (30-36); Mean Corpuscular Hemoglobin 31.2 PG (26-34); Mean Corpuscular Volume 91.1 fL (80-100); Platelet Count 241 X10^3/uL (150-400)
[2025-04-17] MEDS: ALBUTEROL/IPRATROPIUM 3 ML AMPUL INH ×4 (11:09→23:25)
[2025-04-17 11:11] LABS: Alanine Aminotransferase 16 IU/L (<35); Albumin 4.5 g/dL (3.5-5.0); Albumin Globulin Ratio 1.3 (1.0-2.8); Alkaline Phosphatase 84 U/L (38-126); Blood Urea Nitrogen 16 mg/dL (7-17); Calcium 9.1 mg/dL (8.4-10.2); Carbon Dioxide 31 mmol/L (22-32); Chloride 95 mmol/L (98-107); Estimated Glomerular Filt Rate > 60 mL/min (>60); Globulin 3.4 g/dL (1.7-4.1); Glucose 141 mg/dL (70-99); HEMOLYSIS < 15 (0-50); Potassium 3.5 mmol/L (3.4-5.1); Sodium 136 mmol/L (137-145); Total Protein 7.9 g/dL (6.3-8.2)
[2025-04-17] MEDS: methylPREDNISolone succ 125 MG/2 ML VIAL IV (11:15)
--- NOTE | 2025-04-17 11:18 | EKG_ITS ---
[place] [address] [place] [id number] Test Date: 2025-04-17 Pat Name: Henna Darden Department: [facility] Room: Gender: Female Head Of Strategy: ERUM : 1940 Requested By: Order Number: [id number] Reading MD: Harvinder Escobar Measurements Intervals [place] Rate: 84 P: 36 [place]: 190 QRS: -45 QRSD: 98 T: -50 QT: 370 QTc: 437 Interpretive Statements Sinus rhythm with marked sinus arrhythmia Left anterior fascicular block Left ventricular hypertrophy with repolarization abnormality ( R in aVL , Raciel product ) Electronically Signed On 04-23-2025 12:16:28 PST by Harvinder Escobar
[2025-04-17 11:23] LABS: Lactate (Lactic Acid) 1.5 mmol/L (0.7-2.1); NT-proBNP (BNP-Adult 18+) 2290 pg/mL (<450); Troponin I < 0.012 ng/mL (0.01-0.034)
[2025-04-17 11:33] LABS: Influenza A - CEPHEID Flu A NEGATIVE (NEGATIVE); Influenza B - CEPHEID Flu B NEGATIVE (NEGATIVE)
[2025-04-17 11:35] LABS: COVID-19 CEPHEID 4-PLEX PCR Negative (Negative)
[2025-04-17] MEDS: AZITHROMYCIN 500 MG in DEXTROSE 5% IN WATER 250 ML 250 MG IV (13:05)
--- NOTE | 2025-04-17 14:27 | PC.NURSE ---
pt requesting snack, provider aware, diet order pending
[2025-04-17] MEDS: BENZONATATE 100 MG CAPSULE PO (16:07)
[2025-04-17] MEDS: methylPREDNISolone succ 40 MG/ML VIAL IV (16:07)
--- NOTE | 2025-04-17 16:24 | P.HP_ITS ---
History of Present Illness History of Present Illness Date Patient Seen: 04/17/25 Chief complaint: Respiratory issues/80 oxygen Narrative: Chief complaint Productive cough shortness for breath and hypoxic respiratory failure in a patient with COPD with exacerbation History of present illness: 04/17: A 4-year-old female with COPD interstitial lung disease with 3 sick contacts with respiratory symptoms developed increasing productive cough shortness of breath fatigue and malaise brought to the emergency room for evaluation. Findings the emergency room significant for patient with hypoxia with room air saturation in the low 80s chest x-ray which shows a lot of chronic parenchymal changes leukocytosis white count 12.7 with 90% neutrophils hemogram unremarkable BNP 2300 troponin negative Review of systems: No chest pain palpitations Nausea vomiting diarrhea Paresthesia paresis No urinary symptom Physical examination: Pleasant elderly female moderately labored respirations with frequent coughing sounds very wet HEENT unremarkable Heart sounds distant Lungs with coarse rhonchi throughout shortened respiratory phases Abdomen benign Extremities no edema Assessment and plan: Acute respiratory infection with probable bronchitis bronchiectasis and acute hypoxic respiratory failure superimposed on COPD and chronic fibrotic lung disease * Sputum for culture * Empiric ceftriaxone doxycycline * Corticosteroid * Bronchodilators * Pulmonary toilet * Supplemental oxygen COPD and chronic fibrotic lung disease: * Continue maintenance inhalers DVT prophylaxis: * Subcutaneous heparin Code status: * Full code blue Disposition: * Inpatient estimate 2-3 but sometimes as long as 5 days for resolution for fitness to discharge Time based billing: * 55 minutes were involved evaluation of this patient including [id number] evaluation physical examination review of objective laboratory and imaging findings past medical history and records discussion with ER provider and discussion with treatment team [facility] Medical History HTN (hypertension) Hypothyroidism Chronic interstitial lung disease Social History household members: spouse Smoking Status: Never smoker alcohol intake: current Meds Home Medications and Allergies Home Medications ?Medication ?Instructions ?Recorded ?Confirmed ?Type irbesartan 300 1 tab PO DAILY 07/13/2403/21 History mg-hydrochlorothiazide 12.5 mg tablet metoprolol succinate 100 mg 150 mg PO DAILY 07/13/24 1 06/17/24 History tablet,extended release 24 hr albuterol sulfate 2.5 mg/3 mL 2.5 mg (3 mL) inhalation Q6H #360 10/06/24 04/17/25 Rx (0.083 %) solution for nebulization mL albuterol sulfate 90 mcg/actuation 2 puff inhalation 4 XD PRN 10/06/24 04/17/25 Rx aerosol inhaler shortness of breath or wheez ing #54 grams levothyroxine 175 mcg tablet 150 mcg PO DAILY 10/06/24 04/17/25 History trazodone 50 mg tablet 50 mg PO BEDTIME PRN insomni a #30 11/05/24 04/17/25 Rx tabs amlodipine 5 mg tablet 5 mg PO DAILY #30 tabs 12/0704/17/25 Rx budesonide 160 mcg-glycopyr 9 2 inh inhalation BID #10 .7 grams 12/24/24 04/17/25 Rx mcg-formot 4.8 mcg/actuation HFA inhaler (Breztri Aerosphere) apixaban 5 mg tablet (Eliquis) 5 mg PO BID 04/17/25 History Allergies Allergy/AdvReac Type Severity Reaction Status Date / Time No Known Drug Allergies Allergy Verified 12/24/24 11:08 Exam Vital Signs (past 8 hours): - 04/17/25 10:32 04/17/25 10:49 04/17/25 10:51 Temperature 98.0 F Pulse Rate 82 82 Respiratory Rate 16 Blood Pressure 133/64 75/56 L Pulse Oximetry 94 91 Oxygen Delivery Method Room Air Nasal Cannula Oxygen Flow Rate 1 04/17/25 10:51 04/17/25 10:57 04/17/25 10:57 Temperature Pulse Rate 86 83 Respiratory Rate Blood Pressure 140/67 Pulse Oximetry 93 Oxygen Delivery Method Nasal Cannula Oxygen Flow Rate 1 04/17/25 11:00 04/17/25 11:00 04/17/25 11:09 Temperature Pulse Rate 82 86 Respiratory Rate 16 Blood Pressure 140/75 Pulse Oximetry 94 92 Oxygen Delivery Method Nasal Cannula Room Air Oxygen Flow Rate 1 04/17/25 11:30 04/17/25 11:30 04/17/25 12:00 Temperature Pulse Rate 85 84 Respiratory Rate Blood Pressure 143/67 H Pulse Oximetry 90 L 87 L Oxygen Delivery Method Nasal Cannula Nasal Cannula Oxygen Flow Rate 1 1 04/17/25 12:00 04/17/25 12:18 04/17/25 12:30 Temperature Pulse Rate 84 82 Respiratory Rate 16 Blood Pressure 126/59 L Pulse Oximetry 92 91 Oxygen Delivery Method Room Air Nasal Cannula Oxygen Flow Rate 1 04/17/25 12:31 04/17/25 12:31 04/17/25 13:00 Temperature Pulse Rate 84 Respiratory Rate Blood Pressure 157/79 H 132/63 Pulse Oximetry Oxygen Delivery Method Oxygen Flow Rate 04/17/25 13:00 04/17/25 13:30 04/17/25 13:31 Temperature Pulse Rate 91 H 86 81 Respiratory Rate Blood Pressure Pulse Oximetry 93 94 Oxygen Delivery Method Oxygen Flow Rate 04/17/25 13:31 04/17/25 14:00 04/17/25 14:00 Temperature Pulse Rate 77 Respiratory Rate 16 Blood Pressure 145/65 H 130/63 Pulse Oximetry 92 Oxygen Delivery Method Oxygen Flow Rate 04/17/25 15:04 Temperature 98.3 F Pulse Rate 81 Respiratory Rate 16 Blood Pressure 124/78 Pulse Oximetry 90 L Oxygen Delivery Method Oxygen Flow Rate Oxygen Delivery Method Nasal Cannula Oxygen Flow Rate 1 Objective Labs 04/17/25 10:46 04/17/25 10:46 Labs: Laboratory Results - last 24 hr 04/17/25 10:46 WBC 12.7 H RBC 4.77 Hgb 14.9 Hct 43.4 MCV 91.1 MCH 31.2 MCHC 34.3 RDW 13.6 Plt Count 241 Neut % (Auto) 91.1 H Lymph % (Auto) 2.2 L [place] % (Auto) 6.4 Eos % (Auto) 0.1 L Baso % (Auto) 0.2 Neut # (Auto) 49229 H Lymph # (Auto) 300 L [place] # (Auto) 800 Eos # (Auto) 0 Baso # (Auto) 0 Sodium 136 L Potassium 3.5 Chloride 95 L Carbon Dioxide 31 BUN 16 Creatinine 0.73 Estimated GFR > 60 BUN/Creatinine Ratio 21.9 Glucose 141 H Lactate 1.5 Calcium 9.1 Total Bilirubin 1.1 AST 25 ALT 16 Alkaline Phosphatase 84 Troponin I < 0.012 NT-Pro-B Natriuret Pep 2290 H Total Protein 7.9 Albumin 4.5 Globulin 3.4 Albumin/Globulin Ratio 1.3 SARS-CoV-2 (PCR) Negative Influenza A (RT-PCR) Flu a negative Influenza B (RT-PCR) Flu b negative RSV (PCR) Negative Assessment & Plan Time-Based Coding :: [TOTAL MINUTES] spent with patient and on the chart (including review of chart, obtaining history, exam, reviewing outside data, placing orders, documenting exam and treatment plan, and counseling patient) on [DATE]. Quality VTE Deep Vein Thrombosis/Pulmonary Embolism Present on Admission: No
--- NOTE | 2025-04-17 17:27 | PC.NURSE ---
Patient arrived from the ED at 1445. She is A&OX4, VSS, afebrile she is on 1-2 L NC. She is able to ambulate to the bathroom to void but w/ activity has increased SOB. She has a course productive constant cough this afternoon. She is medicated with IV steroid and given PRN tessalon lang with good effect. Admission assessment completed, frequent rounding, call light in reach,belongings in reach. Continuous monitoring.
[2025-04-17] MEDS: BUDESONIDE 0.5 MG/2 ML NEB INH (19:02)
[2025-04-17] MEDS: HEPARIN 5,000 UNIT/ML VIAL 5000 UNIT SUBCUT (21:17)
[2025-04-17] MEDS: DOCUSATE 100 MG CAPSULE PO (21:18)
[2025-04-17] MEDS: SENNOSIDES 8.6 MG TABLET 17.2 MG PO (21:18)
[2025-04-18] MEDS: methylPREDNISolone succ 40 MG/ML VIAL IV ×3 (00:16→18:15)
[2025-04-18] MEDS: LEVOTHYROXINE 100 MCG, LEVOTHYROXINE 75 MCG 175 MCG PO (05:14)
[2025-04-18 05:45] LABS: Add Manual Diff / Slide Review NO; Hematocrit 37.3 % (36-46); Hemoglobin 13.0 g/dL (12.0-16.0); Lymphocytes Absolute Auto 300 /uL (1100-4500); Mean Corpuscular HGB Conc 34.9 % (30-36); Mean Corpuscular Hemoglobin 31.4 PG (26-34); Mean Corpuscular Volume 90.2 fL (80-100); Platelet Count 229 X10^3/uL (150-400)
[2025-04-18 05:50] LABS: Blood Urea Nitrogen 17 mg/dL (7-17); Calcium 8.2 mg/dL (8.4-10.2); Carbon Dioxide 29 mmol/L (22-32); Chloride 99 mmol/L (98-107); Estimated Glomerular Filt Rate > 60 mL/min (>60); Glucose 151 mg/dL (70-99); HEMOLYSIS < 15 (0-50); Potassium 3.6 mmol/L (3.4-5.1); Sodium 134 mmol/L (137-145)
[2025-04-18] MEDS: LOSARTAN 50 MG TABLET 100 MG PO (08:27)
[2025-04-18] MEDS: APIXABAN 5 MG TABLET PO ×2 (08:28→21:00)
[2025-04-18] MEDS: DOCUSATE 100 MG CAPSULE PO ×2 (08:28→21:00)
[2025-04-18] MEDS: METOPROLOL ER 50 MG TABLET 150 MG PO (08:28)
[2025-04-18] MEDS: BENZONATATE 100 MG CAPSULE PO (08:30)
[2025-04-18 09:06] VITALS: PULSE 76; RESP 16; O2SAT 97
[2025-04-18] MEDS: BUDESONIDE 0.5 MG/2 ML NEB INH ×2 (09:06→19:48)
[2025-04-18] MEDS: ALBUTEROL/IPRATROPIUM 3 ML AMPUL INH ×4 (09:06→19:48)
[2025-04-18 10:52] VITALS: PULSE 77; RESP 16; O2SAT 98
--- NOTE | 2025-04-18 10:53 | P.PN_ITS ---
Subjective Subjective Date Patient Seen: 04/18/25 Interval history: Chief complaint Productive cough shortness for breath and hypoxic respiratory failure in a patient with COPD with exacerbation History of present illness: 04/17: A 4-year-old female with COPD interstitial lung disease with 3 sick contacts with respiratory symptoms developed increasing productive cough shortness of breath fatigue and malaise brought to the emergency room for evaluation. Findings the emergency room significant for patient with hypoxia with room air saturation in the low 80s chest x-ray which shows a lot of chronic parenchymal changes leukocytosis white count 12.7 with 90% neutrophils hemogram unremarkable BNP 2300 troponin negative Hospital course: 04/18: Still having productive cough poor air movement no fevers or chills overnight Review of systems: No chest pain palpitations Nausea vomiting diarrhea Paresthesia paresis No urinary symptom Physical examination: Pleasant elderly female moderately labored respirations with frequent coughing sounds very wet HEENT unremarkable Heart sounds distant Lungs with coarse rhonchi throughout shortened respiratory phases Abdomen benign Extremities no edema Assessment and plan: Acute respiratory infection with probable bronchitis bronchiectasis and acute hypoxic respiratory failure superimposed on COPD and chronic fibrotic lung disease previously had Pseudomonas * Sputum for culture * Empiric ceftriaxone ciprofloxacin * Corticosteroid * Bronchodilators * Pulmonary toilet * Supplemental oxygen COPD and chronic fibrotic lung disease: * Continue maintenance inhalers DVT prophylaxis: * Subcutaneous heparin Code status: * Full code blue Disposition: * Inpatient estimate 2-3 but sometimes as long as 5 days for resolution for fitness to discharge Time based billing: * 35 minutes were involved evaluation of this patient including [id number] evaluation physical examination review of objective laboratory and imaging findings past medical history and records discussion with ER provider and discussion with treatment team Exam Vital Signs (past 8 hours): - 04/18/25 09:06 Pulse Rate 76 Respiratory Rate 16 Pulse Oximetry 97 Oxygen Delivery Method Nasal Cannula Oxygen Flow Rate 3 Oxygen Delivery Method Nasal Cannula Oxygen Flow Rate 3 Objective Labs 04/18/25 05:26 04/18/25 05:26 Labs: Laboratory Results - last 24 hr 04/17/25 04/18/25 10:46 05:26 WBC 12.7 H 9.9 RBC 4.77 4.13 Hgb 14.9 13.0 Hct 43.4 37.3 MCV 91.1 90.2 MCH 31.2 31.4 MCHC 34.3 34.9 RDW 13.6 13.1 Plt Count 241 229 Neut % (Auto) 91.1 H 94.8 H Lymph % (Auto) 2.2 L 2.6 L [place] % (Auto) 6.4 2.5 L Eos % (Auto) 0.1 L 0.0 L Baso % (Auto) 0.2 0.1 Neut # (Auto) 42743 H 9400 H Lymph # (Auto) 300 L 300 L [place] # (Auto) 800 200 Eos # (Auto) 0 0 Baso # (Auto) 0 0 Sodium 136 L 134 L Potassium 3.5 3.6 Chloride 95 L 99 Carbon Dioxide 31 29 BUN 16 17 Creatinine 0.73 0.55 Estimated GFR > 60 > 60 BUN/Creatinine Ratio 21.9 30.9 H Glucose 141 H 151 H Lactate 1.5 Calcium 9.1 8.2 L Total Bilirubin 1.1 AST 25 ALT 16 Alkaline Phosphatase 84 Troponin I < 0.012 NT-Pro-B Natriuret Pep 2290 H Total Protein 7.9 Albumin 4.5 Globulin 3.4 Albumin/Globulin Ratio 1.3 SARS-CoV-2 (PCR) Negative Influenza A (RT-PCR) Flu a negative Influenza B (RT-PCR) Flu b negative RSV (PCR) Negative [facility] Medical History HTN (hypertension) Hypothyroidism Chronic interstitial lung disease Social History household members: spouse Smoking Status: Never smoker alcohol intake: current Assessment & Plan Time-Based Coding :: [TOTAL MINUTES] spent with patient and on the chart (including review of chart, obtaining history, exam, reviewing outside data, placing orders, documenting exam and treatment plan, and counseling patient) on [DATE]. Quality VTE Deep Vein Thrombosis/Pulmonary Embolism Present on Admission: No
[2025-04-18 11:00] VITALS: BP 127/73; PULSE 71; RESP 16; TEMP 36.1; O2SAT 95
[2025-04-18] MEDS: CIPROFLOXACIN 400 MG/200 ML PIGGYBACK 200 MG IV ×2 (11:36→20:59)
[2025-04-18] MEDS: DOXYCYCLINE 100 MG in SODIUM CHLORIDE 0.9% 100 ML IV (14:36)
--- NOTE | 2025-04-18 14:55 | CM.DANOTE ---
Patient is a 84yo female, resident of [place], is admitted INPT Status on 04/17/25 for COPD exac and respiratory failure. Per MD, pt with hx of COPD interstitial lung disease and does not have home oxygen at baseline. Pt currently on 2LO2 and MD anticipates another 1-2 days. Pt's Primary Care Provider is Dr. Sita Shepherd MD ([facility]) and insurance is Medicare and [employer]. Air Traffic Control Manager: Dr. Terence Cox MD ([facility]). Bread Distributor: Tanner Burnham MD (). Pt last admitted in November 2024 for bronchitis, + parainfluenza and was able to discharge home with no needs. Reviewed chart and discussed with multidisciplinary team pt's medical status and initial discharge needs. ED COOK SYRUP MAKER met w/patient at bedside; introduced self and role. Patient was found in bed, alert and oriented, cooperative with assessment. Pt lives in a house with her spouse, her daughter (Violeta) lives on the same property. Pt confirmed living situation and good support in family. Pt expressed preference in discharge home when stable. Pt states she has no hx of home health or SNF Rehab and does not anticipate any d/c needs at discharge. Plan: Anticipating dc home with family (daughter to transport) when medically cleared. CM team will follow closely for coordination of discharge plans. TANA Francisco Discharge Planning/Care Management Advanced directive, confirm from FAMILY Start: 04/17/25 16:01 Freq: Q24H Status: Active Protocol: Document 04/17/25 16:01 (Rec: 04/17/25 23:08 [id number]) Advance Directive, confirm on record Time 21:00 Person contacted pt Copy received No CM Discharge Assessment Start: 04/17/25 12:34 Freq: Status: Active Protocol: Document 04/18/25 14:52 BF (Rec: 04/18/25 14:55 [id number]) Discharge Planning Assessment Assigned Discharge TANA Shannon Director Of Conservation Provider Sita Shepherd Insurance Medicare DPOA/Assigned spouse Gallito Designee Name Contact Information [phone] Advance Directives? Yes Advance Directives No on File History Provided By Patient,Medical Record Has Patient been No admitted in last 30 days? Comment Last admit in November 2024 Prior Living House Arrangements Household Members spouse Type of Drives own vehicle transporation used prior to admit Independent with ADL Yes 's Is patient alert and Yes oriented? Caregiver for No Another Barriers to No Discharge Discharge Plan Home Referrals Initiated None needed Whiteboard Updated Yes in Patient Room with name and ext. # of [place] Review Status In Process Please Provide Date 04/18/25 Initial DC Assessment Was Performed Next Review Type Continued Stay Review
[2025-04-18 15:23] VITALS: PULSE 69; RESP 16; O2SAT 99
[2025-04-18 19:48] VITALS: PULSE 75; RESP 18; O2SAT 96
[2025-04-18 20:00] VITALS: BP 127/78; PULSE 79; RESP 18; TEMP 36.3; O2SAT 92
[2025-04-18] MEDS: SENNOSIDES 8.6 MG TABLET 17.2 MG PO (21:00)
[2025-04-19] VITALS (8 sets, daily range): BP systolic 136–160; BP diastolic 86–96; PULSE 71–83; RESP 16–22; TEMP 36.4–36.6; O2SAT 93–97
[2025-04-19] MEDS: ALBUTEROL 2.5 MG/3 ML NEB (ADULT) INH (00:25)
[2025-04-19] MEDS: methylPREDNISolone succ 40 MG/ML VIAL IV ×3 (01:01→15:57)
[2025-04-19] MEDS: DOXYCYCLINE 100 MG in SODIUM CHLORIDE 0.9% 100 ML IV ×2 (01:11→15:50)
[2025-04-19] MEDS: LEVOTHYROXINE 100 MCG, LEVOTHYROXINE 75 MCG 175 MCG PO (06:06)
[2025-04-19 06:45] LABS: Add Manual Diff / Slide Review NO; Hematocrit 39.1 % (36-46); Hemoglobin 13.4 g/dL (12.0-16.0); Lymphocytes Absolute Auto 300 /uL (1100-4500); Mean Corpuscular HGB Conc 34.3 % (30-36); Mean Corpuscular Hemoglobin 31.0 PG (26-34); Mean Corpuscular Volume 90.3 fL (80-100); Platelet Count 275 X10^3/uL (150-400)
[2025-04-19] MEDS: BUDESONIDE 0.5 MG/2 ML NEB INH ×2 (08:47→19:47)
[2025-04-19] MEDS: ALBUTEROL/IPRATROPIUM 3 ML AMPUL INH ×4 (08:47→19:47)
[2025-04-19] MEDS: DOCUSATE 100 MG CAPSULE PO ×2 (08:49→20:09)
[2025-04-19] MEDS: CIPROFLOXACIN 400 MG/200 ML PIGGYBACK 200 MG IV ×2 (08:50→20:09)
[2025-04-19] MEDS: APIXABAN 5 MG TABLET PO ×2 (08:50→20:09)
[2025-04-19] MEDS: LOSARTAN 50 MG TABLET 100 MG PO (08:51)
[2025-04-19] MEDS: METOPROLOL ER 50 MG TABLET 150 MG PO (08:51)
--- NOTE | 2025-04-19 11:30 | CM.DPNOTE ---
DCP Continued: Reviewed EMR and team rounds for pt?s medical status. Per hospitalist, will require another day of PEP therapy and supportive O2. Per RN, pt still requiring 2LO2 and fluids. No discharge needs identified at this time. Plan: Anticipating discharge home with daughter to transport on 04/20 or when medically cleared. CM Team will continue to follow for coordination of discharge plans. OUMAR Bucio
[2025-04-19] MEDS: SENNOSIDES 8.6 MG TABLET 17.2 MG PO (20:09)
[2025-04-19 21:08] LABS: Blood Urea Nitrogen 21 mg/dL (7-17); Calcium 8.4 mg/dL (8.4-10.2); Carbon Dioxide 31 mmol/L (22-32); Chloride 97 mmol/L (98-107); Estimated Glomerular Filt Rate > 60 mL/min (>60); Glucose 137 mg/dL (70-99); HEMOLYSIS < 15 (0-50); Potassium 3.7 mmol/L (3.4-5.1); Sodium 134 mmol/L (137-145)
[2025-04-20] VITALS (7 sets, daily range): BP systolic 153–161; BP diastolic 80–93; PULSE 67–84; RESP 16–18; TEMP 36.6–36.9; O2SAT 95–98
[2025-04-20] MEDS: methylPREDNISolone succ 40 MG/ML VIAL IV ×3 (01:05→16:28)
[2025-04-20] MEDS: DOXYCYCLINE 100 MG in SODIUM CHLORIDE 0.9% 100 ML IV ×2 (01:05→14:35)
[2025-04-20 05:23] LABS: Add Manual Diff / Slide Review NO; Hematocrit 37.7 % (36-46); Hemoglobin 12.8 g/dL (12.0-16.0); Lymphocytes Absolute Auto 200 /uL (1100-4500); Mean Corpuscular HGB Conc 33.9 % (30-36); Mean Corpuscular Hemoglobin 30.6 PG (26-34); Mean Corpuscular Volume 90.3 fL (80-100); Platelet Count 290 X10^3/uL (150-400)
[2025-04-20] MEDS: LEVOTHYROXINE 100 MCG, LEVOTHYROXINE 75 MCG 175 MCG PO (06:34)
[2025-04-20] MEDS: ALBUTEROL/IPRATROPIUM 3 ML AMPUL INH ×4 (07:46→19:15)
[2025-04-20] MEDS: BUDESONIDE 0.5 MG/2 ML NEB INH ×2 (07:46→19:15)
[2025-04-20] MEDS: DOCUSATE 100 MG CAPSULE PO ×2 (08:08→22:21)
[2025-04-20] MEDS: METOPROLOL ER 50 MG TABLET 150 MG PO (08:08)
[2025-04-20] MEDS: APIXABAN 5 MG TABLET PO ×2 (08:08→22:21)
[2025-04-20] MEDS: LOSARTAN 50 MG TABLET 100 MG PO (08:08)
[2025-04-20] MEDS: CIPROFLOXACIN 400 MG/200 ML PIGGYBACK 200 MG IV ×2 (09:15→22:21)
--- NOTE | 2025-04-20 12:21 | P.PN_ITS ---
Subjective Subjective Date Patient Seen: 04/19/25 Interval history: Chief complaint Productive cough shortness for breath and hypoxic respiratory failure in a patient with COPD with exacerbation History of present illness: 04/17: A 4-year-old female with COPD interstitial lung disease with 3 sick contacts with respiratory symptoms developed increasing productive cough shortness of breath fatigue and malaise brought to the emergency room for evaluation. Findings the emergency room significant for patient with hypoxia with room air saturation in the low 80s chest x-ray which shows a lot of chronic parenchymal changes leukocytosis white count 12.7 with 90% neutrophils hemogram unremarkable BNP 2300 troponin negative Hospital course: 04/18: Still having productive cough poor air movement no fevers or chills overnight 04/19: Some improvement but still having productive cough labored respirations with activity Review of systems: No chest pain palpitations Nausea vomiting diarrhea Paresthesia paresis No urinary symptom Physical examination: Pleasant elderly female moderately labored respirations with frequent coughing sounds very wet HEENT unremarkable Heart sounds distant Lungs with coarse rhonchi throughout shortened respiratory phases Abdomen benign Extremities no edema Assessment and plan: Acute respiratory infection with probable bronchitis bronchiectasis and acute hypoxic respiratory failure superimposed on COPD and chronic fibrotic lung disease previously had Pseudomonas * Sputum positive for Moraxella catarrhalis * Continue ceftriaxone ciprofloxacin doxycycline * Corticosteroid * Bronchodilators * Pulmonary toilet * Supplemental oxygen COPD and chronic fibrotic lung disease: * Continue maintenance inhalers DVT prophylaxis: * Subcutaneous heparin Code status: * Full code blue Disposition: * Inpatient estimate 2-3 but sometimes as long as 5 days for resolution for fitness to discharge Time based billing: * 35 minutes were involved evaluation of this patient including [id number] evaluation physical examination review of objective laboratory and imaging findings past medical history and records discussion with ER provider and discussion with treatment team Exam Vital Signs (past 8 hours): - 04/20/25 07:48 04/20/25 08:00 04/20/25 08:08 Temperature 97.9 F Pulse Rate 73 68 Respiratory Rate 16 18 Blood Pressure 153/80 H 153/80 H Pulse Oximetry 95 98 Oxygen Delivery Method Nasal Cannula Oxygen Flow Rate 2 3 04/20/25 08:08 04/20/25 08:34 04/20/25 10:29 Temperature Pulse Rate 67 Respiratory Rate 16 Blood Pressure 154/83 H Pulse Oximetry 98 Oxygen Delivery Method Nasal Cannula Nasal Cannula Oxygen Flow Rate 3 Fraction of Inspired Oxygen 28 SaO2/FiO2 Ratio 332 Oxygen Delivery Method Nasal Cannula Oxygen Flow Rate 3 Objective Labs 04/20/25 05:14 04/19/25 20:22 Labs: Laboratory Results - last 24 hr 04/19/25 04/20/25 20:22 05:14 WBC 12.3 H RBC 4.18 Hgb 12.8 Hct 37.7 MCV 90.3 MCH 30.6 MCHC 33.9 RDW 13.0 Plt Count 290 Neut % (Auto) 93.3 H Lymph % (Auto) 1.9 L Benzie % (Auto) 4.5 Eos % (Auto) 0.1 L Baso % (Auto) 0.2 Neut # (Auto) 97861 H Lymph # (Auto) 200 L Benzie # (Auto) 600 Eos # (Auto) 0 Baso # (Auto) 0 Sodium 134 L Potassium 3.7 Chloride 97 L Carbon Dioxide 31 BUN 21 H Creatinine 0.67 Estimated GFR > 60 BUN/Creatinine Ratio 31.3 H Glucose 137 H Calcium 8.4 PFSH Medical History HTN (hypertension) Hypothyroidism Chronic interstitial lung disease Social History household members: spouse Smoking Status: Never smoker alcohol intake: current Assessment & Plan Time-Based Coding :: [TOTAL MINUTES] spent with patient and on the chart (including review of chart, obtaining history, exam, reviewing outside data, placing orders, documenting exam and treatment plan, and counseling patient) on [DATE]. Quality VTE Deep Vein Thrombosis/Pulmonary Embolism Present on Admission: No
--- NOTE | 2025-04-20 12:29 | P.PN_ITS ---
Subjective Subjective Date Patient Seen: 04/20/25 Interval history: Chief complaint Productive cough shortness for breath and hypoxic respiratory failure in a patient with COPD with exacerbation History of present illness: 04/17: A 4-year-old female with COPD interstitial lung disease with 3 sick contacts with respiratory symptoms developed increasing productive cough shortness of breath fatigue and malaise brought to the emergency room for evaluation. Findings the emergency room significant for patient with hypoxia with room air saturation in the low 80s chest x-ray which shows a lot of chronic parenchymal changes leukocytosis white count 12.7 with 90% neutrophils hemogram unremarkable BNP 2300 troponin negative Hospital course: 04/18: Still having productive cough poor air movement no fevers or chills overnight 04/19: Some improvement but still having productive cough labored respirations with activity 04/20: Continued interval improvement seems to be mobilizing secretions with flutter valve device Review of systems: No chest pain palpitations Nausea vomiting diarrhea Paresthesia paresis No urinary symptom Physical examination: Pleasant elderly female moderately labored respirations with frequent coughing sounds very wet HEENT unremarkable Heart sounds distant Lungs with coarse rhonchi throughout shortened respiratory phases Abdomen benign Extremities no edema Assessment and plan: Acute respiratory infection with probable bronchitis bronchiectasis and acute hypoxic respiratory failure superimposed on COPD and chronic fibrotic lung disease previously had Pseudomonas * Sputum positive for Moraxella catarrhalis * Continue ceftriaxone ciprofloxacin doxycycline * Corticosteroid * Bronchodilators * Pulmonary toilet * Supplemental oxygen COPD and chronic fibrotic lung disease: * Continue maintenance inhalers DVT prophylaxis: * Subcutaneous heparin Code status: * Full code blue Disposition: * Inpatient estimate 2-more days for resolution for fitness to discharge Time based billing: * 35 minutes were involved evaluation of this patient including [id number] evaluation physical examination review of objective laboratory and imaging findings past medical history and records discussion with ER provider and discussion with treatment team Exam Vital Signs (past 8 hours): - 04/20/25 07:48 04/20/25 08:00 04/20/25 08:08 Temperature 97.9 F Pulse Rate 73 68 Respiratory Rate 16 18 Blood Pressure 153/80 H 153/80 H Pulse Oximetry 95 98 Oxygen Delivery Method Nasal Cannula Oxygen Flow Rate 2 3 04/20/25 08:08 04/20/25 08:34 04/20/25 10:29 Temperature Pulse Rate 67 Respiratory Rate 16 Blood Pressure 154/83 H Pulse Oximetry 98 Oxygen Delivery Method Nasal Cannula Nasal Cannula Oxygen Flow Rate 3 Fraction of Inspired Oxygen 28 SaO2/FiO2 Ratio 332 Oxygen Delivery Method Nasal Cannula Oxygen Flow Rate 3 Objective Labs 04/20/25 05:14 04/19/25 20:22 Labs: Laboratory Results - last 24 hr 04/19/25 04/20/25 20:22 05:14 WBC 12.3 H RBC 4.18 Hgb 12.8 Hct 37.7 MCV 90.3 MCH 30.6 MCHC 33.9 RDW 13.0 Plt Count 290 Neut % (Auto) 93.3 H Lymph % (Auto) 1.9 L [place] % (Auto) 4.5 Eos % (Auto) 0.1 L Baso % (Auto) 0.2 Neut # (Auto) 50391 H Lymph # (Auto) 200 L [place] # (Auto) 600 Eos # (Auto) 0 Baso # (Auto) 0 Sodium 134 L Potassium 3.7 Chloride 97 L Carbon Dioxide 31 BUN 21 H Creatinine 0.67 Estimated GFR > 60 BUN/Creatinine Ratio 31.3 H Glucose 137 H Calcium 8.4 PFSH Medical History HTN (hypertension) Hypothyroidism Chronic interstitial lung disease Social History household members: spouse Smoking Status: Never smoker alcohol intake: current Assessment & Plan Time-Based Coding :: [TOTAL MINUTES] spent with patient and on the chart (including review of chart, obtaining history, exam, reviewing outside data, placing orders, documenting exam and treatment plan, and counseling patient) on [DATE]. Quality VTE Deep Vein Thrombosis/Pulmonary Embolism Present on Admission: No
--- NOTE | 2025-04-20 14:13 | CM.DPC ---
DCP Cont. Reviewed EMR and team rounds for pt's medical status and updates. Per Hospitalist, pt will need 2-more days before being medically cleared for home d/c. Monitoring for final needs.
[2025-04-20 18:54] LABS: Blood Urea Nitrogen 17 mg/dL (7-17); Calcium 8.4 mg/dL (8.4-10.2); Carbon Dioxide 31 mmol/L (22-32); Chloride 97 mmol/L (98-107); Estimated Glomerular Filt Rate > 60 mL/min (>60); Glucose 151 mg/dL (70-99); HEMOLYSIS 15 (0-50); Potassium 3.5 mmol/L (3.4-5.1); Sodium 136 mmol/L (137-145)
[2025-04-20] MEDS: SENNOSIDES 8.6 MG TABLET 17.2 MG PO (22:21)
[2025-04-21] VITALS (7 sets, daily range): BP systolic 154–161; BP diastolic 88–93; PULSE 71–78; RESP 18–19; TEMP 36.6; O2SAT 92–99; BMI 20.9
[2025-04-21] MEDS: methylPREDNISolone succ 40 MG/ML VIAL IV ×3 (00:21→16:08)
[2025-04-21] MEDS: DOXYCYCLINE 100 MG in SODIUM CHLORIDE 0.9% 100 ML IV (03:22)
[2025-04-21] MEDS: LEVOTHYROXINE 100 MCG, LEVOTHYROXINE 75 MCG 175 MCG PO (05:30)
[2025-04-21] MEDS: ALBUTEROL/IPRATROPIUM 3 ML AMPUL INH ×4 (08:49→19:36)
[2025-04-21] MEDS: BUDESONIDE 0.5 MG/2 ML NEB INH ×2 (08:49→19:36)
[2025-04-21] MEDS: APIXABAN 5 MG TABLET PO ×2 (09:19→20:51)
[2025-04-21] MEDS: METOPROLOL ER 50 MG TABLET 150 MG PO (09:19)
[2025-04-21] MEDS: DOCUSATE 100 MG CAPSULE PO ×2 (09:19→20:51)
[2025-04-21] MEDS: LOSARTAN 50 MG TABLET 100 MG PO (09:19)
[2025-04-21] MEDS: CIPROFLOXACIN 400 MG/200 ML PIGGYBACK 200 MG IV (09:20)
[2025-04-21] MEDS: POTASSIUM CHLORIDE 20 MEQ TAB 40 MEQ PO (09:42)
--- NOTE | 2025-04-21 14:27 | P.PN_ITS ---
Subjective Subjective Date Patient Seen: 04/21/25 Interval history: Chief complaint Productive cough shortness for breath and hypoxic respiratory failure in a patient with COPD with exacerbation History of present illness: 04/17: A 4-year-old female with COPD interstitial lung disease with 3 sick contacts with respiratory symptoms developed increasing productive cough shortness of breath fatigue and malaise brought to the emergency room for evaluation. Findings the emergency room significant for patient with hypoxia with room air saturation in the low 80s chest x-ray which shows a lot of chronic parenchymal changes leukocytosis white count 12.7 with 90% neutrophils hemogram unremarkable BNP 2300 troponin negative Hospital course: 04/18: Still having productive cough poor air movement no fevers or chills overnight 04/19: Some improvement but still having productive cough labored respirations with activity 04/20: Continued interval improvement seems to be mobilizing secretions with flutter valve device 04/21: Feeling significantly better little bit dyspneic with ambulating coughing less Review of systems: No chest pain palpitations Nausea vomiting diarrhea Paresthesia paresis No urinary symptom Physical examination: Pleasant elderly female moderately labored respirations with frequent coughing sounds very wet HEENT unremarkable Heart sounds distant Lungs with roper inspiratory expiratory wheezes respiratory phases are considerably longer Abdomen benign Extremities no edema Assessment and plan: Acute respiratory infection with probable bronchitis bronchiectasis and acute hypoxic respiratory failure superimposed on COPD and chronic fibrotic lung disease previously had Pseudomonas * Sputum positive for Moraxella catarrhalis * Convert to Levaquin monotherapy * Corticosteroid * Bronchodilators * Pulmonary toilet * Supplemental oxygen COPD and chronic fibrotic lung disease: * Continue maintenance inhalers DVT prophylaxis: * Subcutaneous heparin Code status: * Full code blue Disposition: * Inpatient estimate 1 more day for resolution for fitness to discharge Time based billing: * 35 minutes were involved evaluation of this patient including [id number] evaluation physical examination review of objective laboratory and imaging findings past medical history and records discussion with ER provider and discussion with treatment team Exam Vital Signs (past 8 hours): - 04/21/25 07:00 04/21/25 08:49 04/21/25 09:19 Pulse Rate 71 Respiratory Rate 18 Blood Pressure 161/93 H Pulse Oximetry 96 Oxygen Delivery Method Nasal Cannula Nasal Cannula Oxygen Flow Rate 3 Fraction of Inspired Oxygen 32 04/21/25 09:19 04/21/25 09:44 04/21/25 11:57 Pulse Rate 71 73 Respiratory Rate 18 Blood Pressure 161/93 H Pulse Oximetry 95 Oxygen Delivery Method Nasal Cannula Oxygen Flow Rate 2 Fraction of Inspired Oxygen 28 Fraction of Inspired Oxygen 28 SaO2/FiO2 Ratio 339 Oxygen Delivery Method Nasal Cannula Oxygen Flow Rate 2 Objective Labs 04/20/25 05:14 04/20/25 18:30 Labs: Laboratory Results - last 24 hr 04/20/25 18:30 Sodium 136 L Potassium 3.5 Chloride 97 L Carbon Dioxide 31 BUN 17 Creatinine 0.75 Estimated GFR > 60 BUN/Creatinine Ratio 22.7 H Glucose 151 H Calcium 8.4 PFSH Medical History HTN (hypertension) Hypothyroidism Chronic interstitial lung disease Social History household members: spouse Smoking Status: Never smoker alcohol intake: current Assessment & Plan Time-Based Coding :: [TOTAL MINUTES] spent with patient and on the chart (including review of chart, obtaining history, exam, reviewing outside data, placing orders, documenting exam and treatment plan, and counseling patient) on [DATE]. Quality VTE Deep Vein Thrombosis/Pulmonary Embolism Present on Admission: No
[2025-04-21] MEDS: SENNOSIDES 8.6 MG TABLET 17.2 MG PO (20:51)
[2025-04-22] MEDS: methylPREDNISolone succ 40 MG/ML VIAL IV ×2 (01:09→10:32)
[2025-04-22 05:27] LABS: Blood Urea Nitrogen 21 mg/dL (7-17); Calcium 8.5 mg/dL (8.4-10.2); Carbon Dioxide 31 mmol/L (22-32); Chloride 99 mmol/L (98-107); Estimated Glomerular Filt Rate > 60 mL/min (>60); Glucose 109 mg/dL (70-99); HEMOLYSIS < 15 (0-50); Potassium 4.0 mmol/L (3.4-5.1); Sodium 137 mmol/L (137-145)
[2025-04-22] MEDS: LEVOTHYROXINE 100 MCG, LEVOTHYROXINE 75 MCG 175 MCG PO (05:43)
[2025-04-22 07:45] VITALS: PULSE 80; RESP 20; O2SAT 94
[2025-04-22] MEDS: ALBUTEROL/IPRATROPIUM 3 ML AMPUL INH (07:45)
[2025-04-22] MEDS: BUDESONIDE 0.5 MG/2 ML NEB INH (07:46)
[2025-04-22 07:54] VITALS: PULSE 86; RESP 20; O2SAT 93
--- NOTE | 2025-04-22 09:01 | P.DS_ITS ---
History of Present Illness History of Present Illness Chief complaint: Respiratory issues/80 oxygen Narrative: Chief complaint Productive cough shortness for breath and hypoxic respiratory failure in a patient with COPD with exacerbation History of present illness: 04/17: A 4-year-old female with COPD interstitial lung disease with 3 sick contacts with respiratory symptoms developed increasing productive cough shortness of breath fatigue and malaise brought to the emergency room for evaluation. Findings the emergency room significant for patient with hypoxia with room air saturation in the low 80s chest x-ray which shows a lot of chronic parenchymal changes leukocytosis white count 12.7 with 90% neutrophils hemogram unremarkable BNP 2300 troponin negative Hospital course: 04/18: Still having productive cough poor air movement no fevers or chills overnight 04/19: Some improvement but still having productive cough labored respirations with activity 04/20: Continued interval improvement seems to be mobilizing secretions with flutter valve device 04/21: Feeling significantly better little bit dyspneic with ambulating coughing less Review of systems: No chest pain palpitations Nausea vomiting diarrhea Paresthesia paresis No urinary symptom Physical examination: Pleasant elderly female moderately labored respirations with frequent coughing sounds very wet HEENT unremarkable Heart sounds distant Lungs with roper inspiratory expiratory wheezes respiratory phases are considerably longer Abdomen benign Extremities no edema Assessment and plan: Acute respiratory infection with probable bronchitis bronchiectasis and acute hypoxic respiratory failure superimposed on COPD and chronic fibrotic lung disease previously had Pseudomonas * Sputum positive for Moraxella catarrhalis * Convert to Levaquin monotherapy * Corticosteroid * Bronchodilators * Pulmonary toilet * Supplemental oxygen COPD and chronic fibrotic lung disease: * Continue maintenance inhalers DVT prophylaxis: * Subcutaneous heparin Code status: * Full code blue Disposition: * Discharge to home Time based billing: * 35 minutes were involved evaluation of this patient including [id number] evaluation physical examination review of objective laboratory and imaging findings past medical history and records discussion with ER provider and discussion with treatment team Discharge Providers Provider Date of admission: 04/17/25 12:31 Discharge Date: 04/22/25 Primary care physician: Sita Shepherd MD Discharge provider: Luis Espinoza MD Exam Vital Signs (past 8 hours): - 04/22/25 07:45 04/22/25 07:54 Pulse Rate 80 86 Respiratory Rate 20 20 Pulse Oximetry 94 93 Oxygen Delivery Method Nasal Cannula Room Air Oxygen Flow Rate 1 Fraction of Inspired Oxygen 28 SaO2/FiO2 Ratio 328 Oxygen Delivery Method Room Air Oxygen Flow Rate 1 Objective Labs 04/20/25 05:14 04/22/25 04:10 Labs: Laboratory Results - last 24 hr 04/22/25 04:10 Sodium 137 Potassium 4.0 Chloride 99 Carbon Dioxide 31 BUN 21 H Creatinine 0.63 Estimated GFR > 60 BUN/Creatinine Ratio 33.3 H Glucose 109 H Calcium 8.5 PFSH Medical History HTN (hypertension) Hypothyroidism Chronic interstitial lung disease Social History household members: spouse Smoking Status: Never smoker alcohol intake: current Discharge Plan Discharge Plan Patient Disposition: Home Discharge orders & Medications Prescriptions: New levofloxacin 250 mg Tablet 750 mg PO DAILY Qty: 7 0RF prednisone 20 mg Tablet See Rx Instructions .ROUTE .COMPLEX Qty: 40 0RF Rx Instructions: 20 mg orally 3 p.o. b.i.d. x2 days then 2 p.o. b.i.d. x2 days then 1 p.o. b.i.d. x2 days (there will be tab left over for the patient to have on hand) Continued metoprolol succinate 100 mg tablet extended release 24 hr 150 mg PO DAILY irbesartan-hydrochlorothiazide 300-12.5 mg tablet 1 tab PO DAILY levothyroxine 175 mcg tablet 150 mcg PO DAILY amlodipine 5 mg Tablet 5 mg PO DAILY Qty: 30 0RF Eliquis 5 mg tablet 5 mg PO BID albuterol sulfate 90 mcg/actuation HFA aerosol inhaler 2 puff INHALATION 4XD PRN (Reason: shortness of breath or wheezing) Qty: 54 11RF albuterol sulfate 2.5 mg /3 mL (0.083 %) solution for nebulization 2.5 mg inhalation Q6H Qty: 360 11RF trazodone 50 mg tablet 50 mg PO BEDTIME PRN (Reason: insomnia) Qty: 30 11RF Breztri Aerosphere 160-9-4.8 mcg/actuation HFA aerosol inhaler 2 inh inhalation BID Qty: 10.7 11RF Rx Instructions: Rinse mouth with water, gargle and spit after each use; replaces Stiolto Follow up/Referrals: Joao,Sita, MD [Primary Care Provider, Family Practice] Visit Report/Discharge Packet Stand Alone Forms: Patient Portal/API, Stroke Signs & Symptoms Discharge Data Primary Care Provider: Sita Shepherd VTE Deep Vein Thrombosis/Pulmonary Embolism Present on Admission: No
[2025-04-22] MEDS: APIXABAN 5 MG TABLET PO (09:10)
[2025-04-22] MEDS: METOPROLOL ER 50 MG TABLET 150 MG PO (09:11)
[2025-04-22] MEDS: LOSARTAN 50 MG TABLET 100 MG PO (09:11)
[2025-04-22] MEDS: DOCUSATE 100 MG CAPSULE PO (09:12)
--- NOTE | 2025-04-22 14:15 | CM.DPC ---
DCP Cont. Reviewed EMR and teamr rounds for pt's medical status and updates. Pt has been medically cleared for home d/c, no further needs are indicated at this time.
--- NOTE | 2025-04-22 15:24 | PC.NURSE ---
Discharge:, Pt feels ready to d/c to home. Discharge instructions given by MD. Discharge packet reviewed and understood. RX has been esent. Questions answered. Pt d/c to home via auto with spouse.
== END 2025-04-22 12:10 | disposition home or self-care (01) | DRG 189 ==
LOC: ED 12:18 → AC 12:32
PROVIDERS: Admitting Provider Internal Medicine; Emergency Provider Family Medicine; PCP Family Medicine; Referring Provider Family Medicine; Visit Provider Internal Medicine
DX: J96.01 Acute respiratory failure with hypoxia (principal); J44.1 Chronic obstructive pulmonary disease with (acute) exacerbation; J84.10 Pulmonary fibrosis, unspecified; B96.89 Other specified bacterial agents as the cause of diseases classified elsewhere; J47.9 Bronchiectasis, uncomplicated; I10 Essential (primary) hypertension; J98.8 Other specified respiratory disorders; G47.00 Insomnia, unspecified; E03.9 Hypothyroidism, unspecified; Z79.890 Hormone replacement therapy; Z79.01 Long term (current) use of anticoagulants; Z79.51 Long term (current) use of inhaled steroids
CPT/HCPCS: 36415; 71045; 80048; 80053; 83605; 83880; 84484; 85025; 87040; 87070; 87077; 87205; 87637; 93005; 94640; 94667; 94760; 96365; 96367; 96375; 99285; J0696; J0744; J1644; J1956; J2919; J7050; J7060; J7613